=== PATIENT | female | born 1990 | race Caucasian/White ===

== ENCOUNTER 2019-04-21 05:19 | Emergency (ER) | payer OTHER ==
[2019-04-21] MEDS ORDERED: SODIUM CHLORIDE 0.9% 1,000 ML IV ONE ×2 (05:47→07:13)
[2019-04-21] MEDS ORDERED: MORPHINE SULFATE 4 MG/ML SYRINGE IV STA (05:47)
--- NOTE | 2019-04-21 05:51 | ED ---
Abdominal Pain HPI - General Source: patient, family Mode of arrival: wheelchair Limitations: no limitations - History of Present Illness Complaint: abdominal pain Onset/Timin -: hour(s) Location: RLQ Radiation: R flank Migration to: no migration Severity: severe Quality: sharp Consistency: constant Improves With: nothing Worsens With: nothing Associated Symptoms: vomiting - Related Data LMP (females 10-50): Patient : Yes Number of weeks : 19 <Kwan Caldwell - Last Filed: 04/21/19 08:10> <Tobin Campbell - Last Filed: 04/21/19 10:20> - General Chief Complaint: Abdominal Pain Stated Complaint: Back/Abdominal Pain, 19wks pgt Time Seen by Provider: 04/21/19 05:40 - History of Present Illness Initial Comments: This patient is a 29-year-old woman, currently , 19 weeks 4 days by ultrasound, who presents with a recurrence of right lower quadrant pain that radiates around the flank. The patient had initially had the pain 2 days previously and had been seen at [facility] in [place], where she had ultrasound which did not reveal any etiology as well as lab studies that did not reveal an etiology, but the pain had resolved following IV morphine. Patient states that the pain recurred approximately 1-1/2 hours before she arrived here. She describes it as constant, severe, sharp aching. It does radiate to the flank. She has not noted worsening or relieving factors. She did have an episode of vomiting prior to coming in. No other associated symptoms. (Kwan Caldwell) - Related Data Home Medications Medication Instructions Recorded Confirmed Levothyroxine Sodium [Synthroid] 50 mcg PO DAILY 03/25/19 03/25/19 78/Iron/Folate 1/Dha 1 each PO DAILY 03/25/19 03/25/19 [Prenate Dha Softgel] metFORMIN HCL [Glucophage] 500 mg PO BID 03/25/19 03/25/19 Previous Rx's Medication Instructions Recorded Hydrocodone/Acetaminophen [[place] 1 each PO Q6HR PRN #20 tab 04/21/19 5-325] Nitrofurantoin Monohyd/M-Cryst 100 mg PO Q12HR #14 cap 04/21/19 [Macrobid] Ondansetron Odt [Zofran ODT] 4 mg PO Q8HR PRN #10 tab 04/21/19 Allergies Allergy/AdvReac Type Severity Reaction Status Date / Time No Known Allergies Allergy Verified 04/21/19 05:27 Review of Systems ROS Other: All systems not noted in ROS Statement are negative. Constitutional: Denies: fever, chills Respiratory: Denies: cough, dyspnea Cardiovascular: Denies: chest pain, palpitations, edema, syncope Gastrointestinal: Reports: abdominal pain, vomiting. Denies: diarrhea, constipation, melena, hematochezia Genitourinary: Denies: dysuria, hematuria Musculoskeletal: Denies: back pain Skin: Denies: rash Neurological: Denies: headache, weakness, numbness <PauletteKwan - Last Filed: 04/21/19 08:10> ROS Other: All systems not noted in ROS Statement are negative. <Tobin Campbell - Last Filed: 04/21/19 10:20> ROS Statement: Those systems with pertinent positive or pertinent negative responses have been documented in the HPI. Past Medical History Past Medical History: Thyroid Disorder Additional Past Medical History / Comment(s): PCOS History of Any Multi-Drug Resistant Organisms: None Reported Past Surgical History: Orthopedic Surgery Additional Past Surgical History / Comment(s): Two knee surgeries Past Anesthesia/Blood Transfusion Reactions: No Reported Reaction Past Psychological History: No Psychological Hx Reported Smoking Status: Never smoker Past Alcohol Use History: Occasional Past Drug Use History: None Reported <PauletteKwan - Last Filed: 04/21/19 08:10> General Exam Limitations: no limitations General appearance: alert, anxious Head exam: Present: atraumatic, normocephalic Eye exam: Present: normal appearance. Absent: scleral icterus, conjunctival injection ENT exam: Present: normal oropharynx Neck exam: Present: normal inspection Respiratory exam: Present: normal lung sounds bilaterally. Absent: respiratory distress, wheezes, rales, rhonchi, stridor Cardiovascular Exam: Present: regular rate, normal rhythm, normal heart sounds. Absent: systolic murmur, diastolic murmur, rubs, gallop GI/Abdominal exam: Present: soft, tenderness (Stevie lower quadrant), normal bowel sounds, mass (Gravid uterus palpable below the umbilicus). Absent: distended, guarding, rebound, rigid, pulsatile mass, hernia Extremities exam: Present: normal inspection, normal capillary refill. Absent: pedal edema, calf tenderness Back exam: Present: normal inspection. Absent: CVA tenderness (R), CVA tenderness (L) Neurological exam: Present: alert Skin exam: Present: warm, dry, intact, normal color. Absent: rash <Kwan Caldwell - Last Filed: 04/21/19 08:10> Course <Tobin Campbell - Last Filed: 04/21/19 10:20> Vital Signs 04/21/19 04/21/19 05:23 08:31 Temperature 98.2 F Pulse Rate 84 73 Respiratory 34 H 19 Rate Blood Pressure 130/77 115/72 O2 Sat by Pulse 100 98 Oximetry - Reevaluation(s) Reevaluation #1: 04/21/19 10:18 The patient was endorsed me by Dr. Caldwell at our shift change pending IV fluids and discussed with the patient's OB. Patient is feeling much improved she does demonstrate evidence of a kidney stone 6 mm at the right UVJ. Dr. Caldwell had discussed the case with Dr. Larios. Patient is feeling better I did discuss the findings with patient family members patient be discharged on Zofran as well as [place] 5 as well as Macrobid. Patient will follow up with Dr. Pérez next week (Tobin Campbell) Medical Decision Making - Lab Data Result diagrams: 04/21/19 06:05 04/21/19 06:05 <Kwan Caldwell - Last Filed: 04/21/19 08:10> - Lab Data Result diagrams: 04/21/19 06:05 04/21/19 06:05 <Tobin Campbell - Last Filed: 04/21/19 10:20> - Medical Decision Making Patient is a 29-year-old woman at nearly 20 weeks of gestation, found to have probable right ureteral lithiasis near the UVJ. She has had marked improvement in symptoms following analgesia. Case discussed with urology and they believe t hat no intervention will be necessary given the distal location of the stone. I have paged Dr. Pérez to discuss case as well and call back pending at time of shift change. (Kwan Caldwell) - Lab Data Lab Results 04/21/19 04/21/19 04/21/19 Range/Units 06:05 06:05 06:05 WBC 11.0 H (3.8-10.6) k/uL RBC 4.48 (3.80-5.40) m/uL Hgb 12.8 (11.4-16.0) gm/dL Hct 38.4 (34.0-46.0) % MCV 85.8 (80.0-100.0) fL MCH 28.5 (25.0-35.0) pg MCHC 33.2 (31.0-37.0) g/dL RDW 13.2 (11.5-15.5) % Plt Count 310 (150-450) k/uL Neutrophils % 79 % Lymphocytes % 13 % Monocytes % 5 % Eosinophils % 1 % Basophils % 0 % Neutrophils # 8.7 H (1.3-7.7) k/uL Lymphocytes # 1.5 (1.0-4.8) k/uL Monocytes # 0.6 (0-1.0) k/uL Eosinophils # 0.1 (0-0.7) k/uL Basophils # 0.0 (0-0.2) k/uL Sodium 136 L (137-145) mmol/L Potassium 4.3 (3.5-5.1) mmol/L Chloride 110 H (98-107) mmol/L Carbon Dioxide 16 L (22-30) mmol/L Anion Gap 10 mmol/L BUN 4 L (7-17) mg/dL Creatinine 0.47 L (0.52-1.04) mg/dL Est GFR (CKD-EPI)AfAm >90 (>60 ml/min/1.73 sqM) Est GFR (CKD-EPI)NonAf >90 (>60 ml/min/1.73 sqM) Glucose 106 H (74-99) mg/dL Lactic Ac Sepsis Rflx Plasma Lactic Acid Vidal 3.2 H* (0.7-2.0) mmol/L Calcium 9.1 (8.4-10.2) mg/dL Total Bilirubin 0.9 (0.2-1.3) mg/dL AST 49 H (14-36) U/L ALT 53 H (4-34) U/L Alkaline Phosphatase 43 (38-126) U/L Total Protein 6.1 L (6.3-8.2) g/dL Albumin 3.3 L (3.5-5.0) g/dL Amylase 51 (30-110) U/L Lipase 36 (23-300) U/L Urine Color Urine Appearance (Clear) Urine pH (5.0-8.0) Ur Specific [place] (1.001-1.035) Urine Protein (Negative) Urine Glucose (UA) (Negative) Urine Ketones (Negative) Urine Blood (Negative) Urine Nitrite (Negative) Urine Bilirubin (Negative) Urine Urobilinogen (<2.0) mg/dL Ur Leukocyte Esterase (Negative) Urine RBC (0-5) /hpf Urine WBC (0-5) /hpf Ur Squamous Epith Cells (0-4) /hpf Urine Bacteria (None) /hpf Urine Mucus (None) /hpf 04/21/19 04/21/19 Range/Units 06:38 07:10 WBC (3.8-10.6) k/uL RBC (3.80-5.40) m/uL Hgb (11.4-16.0) gm/dL Hct (34.0-46.0) % MCV (80.0-100.0) fL MCH (25.0-35.0) pg MCHC (31.0-37.0) g/dL RDW (11.5-15.5) % Plt Count (150-450) k/uL Neutrophils % % Lymphocytes % % Monocytes % % Eosinophils % % Basophils % % Neutrophils # (1.3-7.7) k/uL Lymphocytes # (1.0-4.8) k/uL Monocytes # (0-1.0) k/uL Eosinophils # (0-0.7) k/uL Basophils # (0-0.2) k/uL Sodium (137-145) mmol/L Potassium (3.5-5.1) mmol/L Chloride (98-107) mmol/L Carbon Dioxide (22-30) mmol/L Anion Gap mmol/L BUN (7-17) mg/dL Creatinine (0.52-1.04) mg/dL Est GFR (CKD-EPI)AfAm (>60 ml/min/1.73 sqM) Est GFR (CKD-EPI)NonAf (>60 ml/min/1.73 sqM) Glucose (74-99) mg/dL Lactic Ac Sepsis Rflx Y Plasma Lactic Acid Vidal (0.7-2.0) mmol/L Calcium (8.4-10.2) mg/dL Total Bilirubin (0.2-1.3) mg/dL AST (14-36) U/L ALT (4-34) U/L Alkaline Phosphatase (38-126) U/L Total Protein (6.3-8.2) g/dL Albumin (3.5-5.0) g/dL Amylase (30-110) U/L Lipase (23-300) U/L Urine Color Yellow Urine Appearance Slightly Cloudy H (Clear) Urine pH 6.0 (5.0-8.0) Ur Specific [place] 1.020 (1.001-1.035) Urine Protein 2+ H (Negative) Urine Glucose (UA) Negative (Negative) Urine Ketones 3+ H (Negative) Urine Blood Small (Negative) Urine Nitrite Negative (Negative) Urine Bilirubin Negative (Negative) Urine Urobilinogen <2.0 (<2.0) mg/dL Ur Leukocyte Esterase Negative (Negative) Urine RBC 19 H (0-5) /hpf Urine WBC 3 (0-5) /hpf Ur Squamous Epith Cells 2 (0-4) /hpf Urine Bacteria Occasional H (None) /hpf Urine Mucus Rare H (None) /hpf Disposition Is patient prescribed a controlled substance at d/c from ED?: Yes When asked, does pt state using other controlled substances?: No If prescribed controlled substance>3 days was MAPS reviewed?: Prescribed <3 Days If opioid is for acute pain is fill amount 7 days or less?: Yes If Rx opioid, was Start Talking consent form obtained?: Yes <Kwan Caldwell - Last Filed: 04/21/19 08:10> Is patient prescribed a controlled substance at d/c from ED?: Yes <Tobin Campbell - Last Filed: 04/21/19 10:20> Clinical Impression: Ureterolithiasis during in second trimester Disposition: HOME SELF-CARE Condition: Good Prescriptions: Nitrofurantoin Monohyd/M-Cryst [Macrobid] 100 mg PO Q12HR #14 cap Hydrocodone/Acetaminophen [[place] 5-325] 1 each PO Q6HR PRN #20 tab PRN Reason: Pain Ondansetron Odt [Zofran ODT] 4 mg PO Q8HR PRN #10 tab PRN Reason: Nausea Referrals: None,Stated [Primary Care Provider] - 1-2 days
[2019-04-21] MEDS ORDERED: HYDROmorphone 1 MG/ML 1 ML SYRINGE IVP STA (06:08)
[2019-04-21 06:17] LABS: Basophils % (A) 0 %; Eosinophils # (A) 0.1 k/uL (0-0.7); Eosinophils % (A) 1 %; HCT 38.4 % (34.0-46.0); HGB 12.8 gm/dL (11.4-16.0); Lymphocytes # (A) 1.5 k/uL (1.0-4.8); Lymphocytes % (A) 13 %; MCH 28.5 pg (25.0-35.0); MCHC 33.2 g/dL (31.0-37.0); MCV 85.8 fL (80.0-100.0); Monocytes # (A) 0.6 k/uL (0-1.0); Monocytes % (A) 5 %; Neutrophils # (A) 8.7 k/uL (1.3-7.7); Neutrophils % (A) 79 %; Platelet Count 310 k/uL (150-450); RBC 4.48 m/uL (3.80-5.40); RDW 13.2 % (11.5-15.5)
[2019-04-21 06:28] LABS: ALT 53 U/L (4-34); AST 49 U/L (14-36); African American GFR (CKD) >90 (>60 ml/min/1.73 sqM); Albumin 3.3 g/dL (3.5-5.0); Alkaline Phosphatase 43 U/L (38-126); Amylase 51 U/L (30-110); Anion Gap 10 mmol/L; Blood Urea Nitrogen 4 mg/dL (7-17); Calcium 9.1 mg/dL (8.4-10.2); Carbon Dioxide 16 mmol/L (22-30); Chloride 110 mmol/L (98-107); Glucose 106 mg/dL (74-99); Non-African American GFR(CKD) >90 (>60 ml/min/1.73 sqM); Sodium 136 mmol/L (137-145); Total Bilirubin 0.9 mg/dL (0.2-1.3); Total Protein 6.1 g/dL (6.3-8.2)
[2019-04-21 06:32] LABS: Potassium 4.3 mmol/L (3.5-5.1)
[2019-04-21 06:53] LABS: Appearance,Urine Slightly Cloudy (Clear); Bilirubin,Urine Negative (Negative); Blood,Urine Small (Negative); Color,Urine Yellow; Glucose,Urine (UA) Negative (Negative); Ketones,Urine 3+ (Negative); Nitrite,Urine Negative (Negative); Protein,Urine 2+ (Negative); Urobilinogen,Urine <2.0 mg/dL (<2.0)
[2019-04-21 06:54] LABS: Leukocyte Esterase,Urine Negative (Negative)
[2019-04-21 06:58] LABS: Bacteria,Urine Occasional /hpf; Mucus,Urine Rare /hpf; RBC,Urine 19 /hpf (0-5); Squamous Epithelial Cell,Urine 2 /hpf (0-4); WBC,Urine 3 /hpf (0-5)
--- NOTE | 2019-04-21 07:59 | US ---
EXAMINATION TYPE: US renals and bladder DATE OF EXAM: 04/21/2019 COMPARISON: None CLINICAL HISTORY: 29-year-old female RLQ abdominal pain. Patient is 19 weeks . TECHNIQUE: Multiple sonographic images of the kidneys and bladder are obtained. FINDINGS: EXAM MEASUREMENTS: Right Kidney: 10.1 x 6.0 x 6.4 cm with mild hydronephrosis. Left Kidney: 11.4 x 5.5 x 6.4 cm without hydronephrosis. Right Kidney: Mild hydronephrosis Left Kidney: No hydronephrosis or masses seen Bladder: mildly distended. Echogenic focus seen near right UVJ with twinkling artifact = 0.6 x 0.5 c m. Bilateral Jets seen Line Maintainer Section notes: Images of RLQ taken. Appendix not visualized. No free fluid seen. IMPRESSION: 1. Mild right-sided hydronephrosis. There is a possible 6 mm distal right ureteral calculus. Clinical ly correlate. 2. Additional scanning along the right lower quadrant. Appendix could not be visualized and is theref ore not assessed. No free fluid seen.
[2019-04-21] MEDS ORDERED: DEXTROSE 5%-0.45% NACL 1,000 ML IV ONE (08:09)
[2019-04-21 08:34] VITALS: RESP 19
[2019-04-21 10:37] VITALS: BP 115/62; PULSE 83; TEMP 98.3
== END 2019-04-21 10:44 | disposition home or self-care (01) ==
LOC: EC 05:19
DX: O99.89 Other specified diseases and conditions complicating pregnancy, childbirth and the puerperium (principal); N20.1 Calculus of ureter; O99.282 Endocrine, nutritional and metabolic diseases complicating pregnancy, second trimester; E28.2 Polycystic ovarian syndrome; E07.9 Disorder of thyroid, unspecified; Z3A.19 19 weeks gestation of pregnancy; Z98.890 Other specified postprocedural states; Z79.84 Long term (current) use of oral hypoglycemic drugs; Z79.890 Hormone replacement therapy
CPT/HCPCS: 36415; 80053; 82150; 83605; 83690; 85025; 81001; 76770; 99284; 96374; 96375; 96361 ×4; J2270; J1170

== ENCOUNTER → 2019-05-04 | Outpatient (CLI) | payer OTHER | END | disposition home or self-care (01) | LOC: LABWHC1 10:12 | PROVIDERS: ATTEND Internal Medicine Endocrinology, Diabetes & Metabolism | DX: E03.8 Other specified hypothyroidism (principal) | CPT/HCPCS: 36415; 84443 ==

== ENCOUNTER 2019-08-31 06:00 | Inpatient (IN) | payer OTHER ==
[2019-08-31] MEDS ORDERED: METHYLERGONOVINE 0.2 MG/ML 1 ML AMP IM PRN (06:25)
[2019-08-31] MEDS ORDERED: CARBOPROST TROMETHAMINE 250 MCG/ML 1 ML AMP IM PRN (06:25)
[2019-08-31] MEDS ORDERED: OXYTOCIN 10 UNIT/ML 1 ML VIAL IM PRN (06:25)
[2019-08-31] MEDS ORDERED: LIDOCAINE 0.5% (PF) 5 MG/ML (50 ML SDV) SQ PRN (06:25)
[2019-08-31] MEDS ORDERED: TERBUTALINE 1 MG/ML VIAL SQ PRN (06:25)
[2019-08-31] MEDS ORDERED: OXYTOCIN 30 UNITS/500 ML NS 30 UNIT in SALINE 1 500ML.BAG IV SCH (06:30)
[2019-08-31] MEDS: LACTATED RINGERS 1,000 ML IV SCH ×2 (06:42→09:08)
[2019-08-31 07:11] LABS: Glucose,Whole Blood 84 mg/dL (75-99)
[2019-08-31 07:25] LABS: Basophils % (A) 1 %; Eosinophils # (A) 0.3 k/uL (0-0.7); Eosinophils % (A) 3 %; HCT 37.3 % (34.0-46.0); HGB 11.7 gm/dL (11.4-16.0); Lymphocytes # (A) 1.4 k/uL (1.0-4.8); Lymphocytes % (A) 16 %; MCH 24.4 pg (25.0-35.0); MCHC 31.3 g/dL (31.0-37.0); Mean Platelet Volume 8.2; Monocytes # (A) 0.5 k/uL (0-1.0); Monocytes % (A) 6 %; Neutrophils # (A) 6.3 k/uL (1.3-7.7); Neutrophils % (A) 73 %; Platelet Count 332 k/uL (150-450); RBC 4.78 m/uL (3.80-5.40); RDW 14.2 % (11.5-15.5); WBC 8.7 k/uL (3.8-10.6)
--- NOTE | 2019-08-31 07:47 | P.HPOB ---
History of Present Illness H&P Date: 08/31/19 Chief Complaint: Here for induction of labor This is a 29-year-old white female 1 para 0 EDC 09/11/2019 at 38-3/7 weeks' gestation. Patient is on insulin control for gestational diabetes. It is the recommendation of maternal medicine to deliver between 3839 weeks. Cervix is reasonably favorable. Patient denies any issues or complaints. Fetus is been active throughout the , reactive NST in the office yesterday. Blood sugar on admission 84. history significant for blood type O positive, rubella status immune. Hepatitis B surface antigen, HIV testing, urine culture, group B strep cultures, gonorrhea and chlamydia cultures all negative. One-hour Glucola 198. Recent ultrasound consistent with 87th percentile growth. Social history patient is , she denies alcohol tobacco or drug use. Family history is essentially noncontributory. ALLERGIES none known. Current medications levothyroxine 50 MCG's daily, metformin 500 mg 2 tabs once daily, vitamin daily. Past medical history significant for hypothyroidism, polycystic ovarian syndrome. Past surgical history colposcopy in 2012, knee surgery 2003, wisdom teeth extracted, adenoidectomy. On exam this is a pleasant white female who is 5 foot 7 inches, 196 pounds, blood pressure 129/70. The general physical exam is within normal limits. The chest is clear in all pacheco. Extremities reveal no edema. The cervix is 3 cm dilated, 80% effaced, -1 station, vertex presentation, soft, mid position. Artificial amniorrhexis reveals meconium-stained fluid. heart rate is consistent with reactive NST. Uterine contractions are occurring spontaneously approximately every 4-6 minutes apart. Impression: 38-3/7 weeks intrauterine , gestational diabetic on insulin. Hypothyroidism. Meconium-stained fluid. All signs otherwise reassuring. Plan: Oxytocin augmentation per hospital protocol. Close maternal and surveillance. Anticipate normal spontaneous vaginal delivery. Review of Systems As per HPI please Past Medical History Past Medical History: Thyroid Disorder Additional Past Medical History / Comment(s): PCOS History of Any Multi-Drug Resistant Organisms: None Reported Past Surgical History: Adenoidectomy, Orthopedic Surgery Additional Past Surgical History / Comment(s): Two knee surgeries Past Anesthesia/Blood Transfusion Reactions: No Reported Reaction Past Psychological History: No Psychological Hx Reported Smoking Status: Never smoker Past Alcohol Use History: Occasional Past Drug Use History: None Reported - Past Family History Father History Unknown: Yes Family Medical History: AFIB Medications and Allergies Home Medications Medication Instructions Recorded Confirmed Type Levothyroxine Sodium [Synthroid] 50 mcg PO DAILY 03/25/19 08/31/19 History 78/Iron/Folate 1/Dha 1 each PO DAILY 03/25/19 08/31/19 History [Prenate Dha Softgel] metFORMIN HCL [Glucophage] 500 mg PO BID 03/25/19 08/31/19 History Ondansetron Odt [Zofran ODT] 4 mg PO Q8HR PRN #10 tab 04/21/19 08/31/19 Rx Allergies Allergy/AdvReac Type Severity Reaction Status Date / Time No Known Allergies Allergy Verified 04/21/19 05:27 Exam Vital Signs Temp Pulse Resp BP 08/31/19 06:24 97.4 F L 82 18 129/70 Intake and Output 08/30/19 08/31/19 08/31/19 22:59 06:59 14:59 Other: Weight 88.904 kg See dictation under HPI please Results Result Diagrams: 08/31/19 06:43 Abnormal Lab Results - Last 24 Hours (Table) 08/31/19 Range/Units 06:43 MCV 78.0 L (80.0-100.0) fL MCH 24.4 L (25.0-35.0) pg Assessment and Plan Assessment: 38-3/7 weeks intrauterine , gestational diabetes on insulin, hypothyroidism, meconium-stained fluid, here for induction of labor. Plan: Oxytocin per hospital protocol. Close maternal and surveillance. Analgesic options reviewed with the patient. Anticipate normal spontaneous vaginal delivery. Time with Patient: Less than 30
[2019-08-31] MEDS ORDERED: BUTORPHANOL 1 MG/ML 1 ML VIAL IV PRN (08:07)
[2019-08-31] MEDS ORDERED: fentaNYL (PF) 50 MCG/ML 5 ML AMP ONE (09:30)
[2019-08-31] MEDS ORDERED: ROPIVACAINE 5MG/ML 20ML VIAL ONE (09:30)
[2019-08-31] MEDS ORDERED: SODIUM CHLORIDE 0.9% 100 ML BAG ONE (09:30)
[2019-08-31] MEDS ORDERED: BENZOCAINE/MENTHOL SPRAY 1 GM/SPRAY AEROSOL TOPICAL PRN (15:17)
[2019-08-31] MEDS ORDERED: ZOLPIDEM 5 MG TAB PO PRN (15:17)
[2019-08-31] MEDS ORDERED: ACETAMINOPHEN TAB 325 MG TAB PO PRN (15:17)
[2019-08-31] MEDS ORDERED: diphenhydrAMINE 50 MG/ML 1 ML VIAL IVP PRN ×2 (15:17)
[2019-08-31] MEDS ORDERED: LANOLIN CREAM 5 GM TUBE TOPICAL PRN (15:17)
[2019-08-31] MEDS ORDERED: HYDROCORTISONE 2.5% RECTAL CREAM 30 GM TUBE RECTAL PRN (15:17)
[2019-08-31] MEDS ORDERED: diphenhydrAMINE 25 MG CAP PO PRN (15:17)
[2019-08-31] MEDS ORDERED: SIMETHICONE 80 MG CHEWABLE PO PRN (15:17)
[2019-08-31] MEDS ORDERED: diphenhydrAMINE 50 MG CAP PO PRN (15:17)
--- NOTE | 2019-08-31 15:17 | P.PROBDLV ---
Vaginal Delivery Note - . Vaginal Delivery Note: This is a 29-year-old white female 1 para 0 EDC 09/11/2019 at 38-3/7 weeks' gestation. Patient presented for induction with gestational diabetes, on insulin. Blood sugar on admission 84. Fetus is been active throughout the . Please see dictated history and physical for details. [place]pee strep cultures negative, blood type O+, rubella status immune. Artificial amniorrhexis revealed light meconium-stained fluid. Internal scalp lead was applied. Oxytocin was started and titrated per hospital protocol. Epidural was requested and placed. Unremarkable placement. Patient progressed through the first stage of labor and became completely dilated at 1349 hrs. There were episodes of decelerations noted, at all times good fhyx-wa-snbb variability was noted. Patient made slow but steady progress in the second stage of labor. Ultimately the perineal body was prepped and draped in usual sterile fashion. 's head delivered occiput anterior and she restituted accordingly. There was a large amount of It noted. The right or anterior shou lder was delivered easily from underneath the pubic symphysis at which time the oropharynx, nasopharynx, and external nares were all bulb suctioned on the perineal body. Patient was officially delivered of a liveborn female infant at 1456 hrs. Umbilical cord was doubly clamped and ligated, she was handed to waiting congressional representative in the room. scores of 46 and 8 at one and 5 and 10 minutes respectively were given. The placenta delivered spontaneously, it was inspected and noted to be intact with trivascular cord at 1458 hrs. Placenta was sent to pathology for evaluation. Inspection now carefully of the cervix, vagina, perineum, periurethral, and perirectal areas revealed a first-degree perineal laceration. This was easily repaired with 3-0 repeat suture in the usual fashion. Fundus is firm and in the midline, symmetric and 18 week size upon completion of delivery. All sponge needle and enhancement counts are correct. 's weight is not available time of this dictation.
[2019-08-31] MEDS ORDERED: OXYTOCIN 20 UNITS/1000 ML NS 1,000 ML IV SCH (15:30)
[2019-08-31] MEDS: IBUPROFEN 600 MG TAB PO PRN ×2 (15:32→21:03)
[2019-08-31 15:40] LABS: Glucose,Whole Blood 97 mg/dL (75-99)
[2019-08-31] MEDS: SENNOSIDES-DOCUSATE SODIUM 1 EACH TAB PO SCH (21:03)
[2019-09-01] MEDS: IBUPROFEN 600 MG TAB PO PRN ×3 (03:48→18:14)
[2019-09-01 06:53] LABS: HCT 34.5 % (34.0-46.0); HGB 11.3 gm/dL (11.4-16.0); RBC 4.41 m/uL (3.80-5.40); WBC 13.4 k/uL (3.8-10.6)
[2019-09-01 06:54] LABS: Basophils % (A) 0 %; Eosinophils # (A) 0.3 k/uL (0-0.7); Eosinophils % (A) 2 %; Hypochromasia Slight; Lymphocytes # (A) 1.9 k/uL (1.0-4.8); Lymphocytes % (A) 14 %; MCH 25.7 pg (25.0-35.0); MCHC 32.9 g/dL (31.0-37.0); MCV 78.2 fL (80.0-100.0); Monocytes # (A) 0.7 k/uL (0-1.0); Monocytes % (A) 5 %; Neutrophils # (A) 10.4 k/uL (1.3-7.7); Neutrophils % (A) 77 %; Platelet Count 300 k/uL (150-450); RDW 14.2 % (11.5-15.5)
[2019-09-01 07:33] VITALS: RESP 16
--- NOTE | 2019-09-01 08:18 | P.PN ---
Subjective Progress Note Date: 09/01/19 Principal diagnosis: day #1 Slept well. Minimal lochia rubra. No complaints. Objective - Vital Signs Vital signs: Vital Signs Temp 98.1 F 09/01/19 07:30 Pulse 80 09/01/19 07:30 Resp 16 09/01/19 07:30 BP 120/67 09/01/19 07:30 Pulse Ox 97 09/01/19 07:30 Intake & Output 08/31/19 09/01/19 09/01/19 18:59 06:59 18:59 Other: Voiding Method Toilet # Voids 1 1 2 - Constitutional General appearance: Present: average body habitus, cooperative - EENT Eyes: Present: PERRLA ENT: Present: hearing grossly normal - Neck Neck: Present: normal ROM - Respiratory Respiratory: bilateral: CTA - Cardiovascular Rhythm: regular - Gastrointestinal General gastrointestinal: Present: normal bowel sounds - Genitourinary Genitourinary Comment(s): Fundus firm, midline, symmetric, 18 week size. - Neurologic Neurologic: Present: CNII-XII intact - Musculoskeletal Musculoskeletal: Present: gait normal, strength equal bilaterally - Psychiatric Psychiatric: Present: A&O x's 3, appropriate affect, intact judgment & insight - Labs CBC & Chem 7: 09/01/19 06:36 Labs: Abnormal Lab Results - Last 24 Hours (Table) 09/01/19 Range/Units 06:36 WBC 13.4 H (3.8-10.6) k/uL Hgb 11.3 L (11.4-16.0) gm/dL MCV 78.2 L (80.0-100.0) fL Neutrophils # 10.4 H (1.3-7.7) k/uL Assessment and Plan Assessment: Doing well day #1 Plan: [place] progressing well and nursery. Continue care today. Likely discharge home tomorrow. Time with Patient: Less than 30
[2019-09-01] MEDS: SENNOSIDES-DOCUSATE SODIUM 1 EACH TAB PO SCH ×2 (09:57→21:12)
[2019-09-02] MEDS: IBUPROFEN 600 MG TAB PO PRN ×2 (03:54→15:03)
[2019-09-02] MEDS: SENNOSIDES-DOCUSATE SODIUM 1 EACH TAB PO SCH (07:43)
--- NOTE | 2019-09-02 10:08 | P.DS ---
Providers Date of admission: 08/31/19 06:02 Expected date of discharge: 09/02/19 Attending physician: Trish Hastings Primary care physician: Stated None - Discharge Diagnosis(es) (1) Term Current Visit: Yes Status: Acute (2) Gestational diabetes Current Visit: Yes Status: Acute (3) Status post vaginal delivery Current Visit: Yes Status: Acute (4) Obstetric vaginal laceration Current Visit: Yes Status: Acute Hospital Course: This is a 29-year-old 1 now para 1 that presented to labor and delivery at 38-3/7 weeks for induction of labor secondary to gestational diabetes on insulin. Patient had been receiving routine care which has been uncomplicated despite being diagnosed with gestational diabetes. Patient has a history of polycystic ovarian syndrome and was on metformin in addition. Patient had seen Dr. Peres for management of her insulin needed to control her blood sugars. Patient was also seen by maternal- medicine with recommendation of delivery between 38-39 weeks. Patient's blood sugars have been reasonably well-controlled and insulin was increased as needed. Patient was admitted to labor and delivery and Pitocin induction of labor was begun per hospital protocol. Patient progressed through labor eventually requesting an epidural for analgesia. Patient progressed to complete began pushing and had a normal spontaneous vaginal delivery of a viable female at 1446, was then handed off to awaiting electrocardiogram technician, Apgars of 4/6/8 at one and 5 and 10 minutes respectively. Infant was then taken back to the nursery and placed on high flow oxygen. Subsequent weaning off of the oxygen was done by the special care nursery. Patient remains on IV antibiotics. Patient has done well since delivery. On this day #2 she is ambulating and voiding without difficulty. She is tolerating a regular diet without nausea or vomiting. She states her pain is well-controlled. She is b reast-feeding/pumping. Patient Condition at Discharge: Good Plan - Discharge Summary New Discharge Prescriptions: No Action Levothyroxine Sodium [Synthroid] 50 mcg PO DAILY metFORMIN HCL [Glucophage] 500 mg PO BID 78/Iron/Folate 1/Dha [Prenate Dha Softgel] 1 each PO DAILY Insulin Aspart [NovoLOG] 8 units SQ DIRECTED Discharge Medication List Levothyroxine Sodium [Synthroid] 50 mcg PO DAILY 03/25/19 [History] 78/Iron/Folate 1/Dha [Prenate Dha Softgel] 1 each PO DAILY 03/25/19 [History] metFORMIN HCL [Glucophage] 500 mg PO BID 03/25/19 [History] Insulin Aspart [NovoLOG] 8 units SQ DIRECTED 08/31/19 [History] Follow up Appointment(s)/Referral(s): Heather Pérez MD [STAFF PHYSICIAN] - 6 Weeks Patient Instructions/Handouts: Vaginal Delivery (DC), Vaginal Delivery (GEN) Activity/Diet/Wound Care/Special Instructions: Is Dr. Peres has been managing her insulin/blood sugars we'll defer management to Dr. Peres . Discharge Disposition: HOME SELF-CARE
[2019-09-02 16:10] VITALS: BP 97/52; PULSE 65; TEMP 98.6
== END 2019-09-02 21:00 | disposition home or self-care (01) | DRG 807 ==
LOC: 4FBP 06:02
PROVIDERS: ADMIT Obstetrics & Gynecology; ATTEND Obstetrics & Gynecology
PROC: 10E0XZZ Delivery of Products of Conception, External Approach (ICD-10-PCS; principal; 2019-08-31)
PROC: 10907ZC Drainage of Amniotic Fluid, Therapeutic from Products of Conception, Via Natural or Artificial Opening (ICD-10-PCS; 2019-08-31)
PROC: 0HQ9XZZ Repair Perineum Skin, External Approach (ICD-10-PCS; 2019-08-31)
PROC: 3E0R3BZ Introduction of Anesthetic Agent into Spinal Canal, Percutaneous Approach (ICD-10-PCS; 2019-08-31)
PROC: 3E033VJ Introduction of Other Hormone into Peripheral Vein, Percutaneous Approach (ICD-10-PCS; 2019-08-31)
DX: O24.424 Gestational diabetes mellitus in childbirth, insulin controlled (principal); Z37.0 Single live birth; E03.9 Hypothyroidism, unspecified; O99.284 Endocrine, nutritional and metabolic diseases complicating childbirth; E28.2 Polycystic ovarian syndrome; O70.0 First degree perineal laceration during delivery; O76 Abnormality in fetal heart rate and rhythm complicating labor and delivery; O77.0 Labor and delivery complicated by meconium in amniotic fluid; Z3A.38 38 weeks gestation of pregnancy; Z79.890 Hormone replacement therapy; Z79.899 Other long term (current) drug therapy; Z98.890 Other specified postprocedural states
CPT/HCPCS: 85025; 86850; 86900; 86901; 88307

== ENCOUNTER 2019-09-15 01:21 | Inpatient (IN) | payer OTHER ==
[2019-09-15] MEDS ORDERED: SODIUM CHLORIDE 0.9% 1,000 ML IV STA (01:29)
[2019-09-15] MEDS ORDERED: ASPIRIN 81 MG PO STA (01:29)
[2019-09-15] MEDS ORDERED: MORPHINE SULFATE 4 MG/ML SYRINGE IVP STA (01:33)
[2019-09-15 01:46] LABS: Basophils % (A) 0 %; Eosinophils # (A) 0.3 k/uL (0-0.7); Eosinophils % (A) 2 %; HCT 40.6 % (34.0-46.0); Hypochromasia Moderate; Lymphocytes # (A) 2.4 k/uL (1.0-4.8); Lymphocytes % (A) 18 %; MCH 25.5 pg (25.0-35.0); MCV 79.5 fL (80.0-100.0); Mean Platelet Volume 7.1; Monocytes # (A) 0.7 k/uL (0-1.0); Monocytes % (A) 5 %; Neutrophils # (A) 10.1 k/uL (1.3-7.7); Neutrophils % (A) 74 %; Platelet Count 471 k/uL (150-450); RDW 14.4 % (11.5-15.5); WBC 13.7 k/uL (3.8-10.6)
[2019-09-15] MEDS: LABETALOL 5 MG/ML VIAL MDV IVP SCH ×2 (01:56→05:20)
[2019-09-15 01:58] LABS: ALT 31 U/L (4-34); AST 38 U/L (14-36); African American GFR (CKD) >90 (>60 ml/min/1.73 sqM); Albumin 4.2 g/dL (3.5-5.0); Alkaline Phosphatase 183 U/L (38-126); Anion Gap 11 mmol/L; Blood Urea Nitrogen 13 mg/dL (7-17); Calcium 9.3 mg/dL (8.4-10.2); Carbon Dioxide 24 mmol/L (22-30); Chloride 107 mmol/L (98-107); Creatine Kinase 42 U/L (30-135); Glucose 115 mg/dL (74-99); Lipase 74 U/L (23-300); Magnesium 2.2 mg/dL (1.6-2.3); Non-African American GFR(CKD) >90 (>60 ml/min/1.73 sqM); Potassium 3.8 mmol/L (3.5-5.1); Sodium 142 mmol/L (137-145); Total Bilirubin 0.5 mg/dL (0.2-1.3); Uric Acid 5.1 mg/dL (3.7-7.4)
[2019-09-15 02:06] LABS: INR 0.9 (<1.2); Partial Thromboplastin Time 22.1 sec (22.0-30.0); Prothrombin Time 9.4 sec (9.0-12.0)
[2019-09-15 02:09] LABS: D-Dimer 1.88 mg/L FEU (<0.60)
--- NOTE | 2019-09-15 02:18 | CT ---
EXAMINATION TYPE: CT angio thor/abd pel aorta DATE OF EXAM: 09/15/2019 COMPARISON: CT abdomen 07/12/2013 HISTORY: Chest pain post CT DLP: 1648.6 mGycm Automated exposure control for dose reduction was used. CONTRAST: Performed with IV Contrast, patient injected with 100 mL of Isovue 370. Images were obtained from the thoracic inlet to the floor the pelvis without and subsequently with IV contrast. There are 3-D post processed images. FINDINGS: The lungs are clear of infiltrate. There is no evidence of a pulmonary mass. Heart appears normal. Th ere is no pericardial effusion. There are no hilar masses. There is no sign of mediastinal adenopathy . Facet aorta is intact. There is no thoracic aortic aneurysm or dissection. There is normal contrast opacification of the pulmonary arteries. There is no filling defect. Liver spleen stomach pancreas gallbladder appear normal. Bile ducts are not dilated. There is no adre nal mass. Kidneys show satisfactory contrast opacification. There is no hydronephrosis. Ureters are n ot dilated. Bladder distends smoothly. There is enlarged uterus from recent . There is no in guinal hernia. There is tiny amount of free fluid in the pelvis. There are a few sigmoid diverticula. There is no sign of diverticulitis. There is no mesenteric edema . There is no ascites or free air. There is no bowel obstruction. The cecum appears normal. Appendix is posterior and superior and appears normal. Abdominal aorta has normal size and contour. There is normal contrast opacification of the celiac art mandi and superior mesenteric artery. There is normal contrast opacification of the renal and iliac and femoral arteries. There is no evidence of hemodynamic stenosis. There is no evidence of aortic aneur ysm or dissection. There is no retroperitoneal adenopathy. IMPRESSION: Negative CT angiogram of the chest abdomen pelvis. No evidence of pulmonary embolism. Tiny amount of fluid in the pelvis of doubtful significance. Mild sigmoid diverticulosis.
--- NOTE | 2019-09-15 02:19 | XR ---
EXAMINATION TYPE: XR chest 1V DATE OF EXAM: 09/15/2019 COMPARISON: NONE HISTORY: Chest pain TECHNIQUE: Single view FINDINGS: Heart and mediastinum are normal. Lungs are clear. Diaphragm is normal. Bony thorax appears normal. IMPRESSION: Normal chest.
[2019-09-15 02:35] LABS: Appearance,Urine Clear (Clear); Bilirubin,Urine Negative (Negative); Blood,Urine Negative (Negative); Color,Urine Light Yellow; Glucose,Urine (UA) Negative (Negative); Ketones,Urine Negative (Negative); Leukocyte Esterase,Urine Negative (Negative); Nitrite,Urine Negative (Negative); Protein,Urine Trace (Negative); Specific Gravity,Urine 1.039 (1.001-1.035); Urobilinogen,Urine <2.0 mg/dL (<2.0)
--- NOTE | 2019-09-15 03:15 | ED ---
Chest Pain HPI - General Chief Complaint: Chest Pain Stated Complaint: Chest Pain Time Seen by Provider: 09/15/19 01:28 Source: patient Mode of arrival: wheelchair Limitations: no limitations - History of Present Illness Initial Comments: Mary Lou is a pleasant 29-year-old female who is 15 days after is complicated by gestational diabetes. Patient presents the emergency department today in acute distress with a complaint of retrosternal chest pain. Pain began suddenly while the patient was sitting watching television. Patient has no history of DVT, PE, cardiac disease. She denies any recent fevers chills nausea or vomiting. She is being treated for a sinus infection with oral antibiotic she believes is amoxicillin. She has been taking Motrin daily for pain but states she is only taking about 3 Motrin 200s daily. Severity scale (1-10): 3 - Related Data Home Medications Medication Instructions Recorded Confirmed Levothyroxine Sodium [Synthroid] 50 mcg PO DAILY 03/25/19 08/31/19 78/Iron/Folate 1/Dha 1 each PO DAILY 03/25/19 08/31/19 [Prenate Dha Softgel] metFORMIN HCL [Glucophage] 500 mg PO BID 03/25/19 08/31/19 Insulin Aspart [NovoLOG] 8 units SQ DIRECTED 08/31/19 08/31/19 Allergies Allergy/AdvReac Type Severity Reaction Status Date / Time No Known Allergies Allergy Verified 09/15/19 01:37 Review of Systems ROS Statement: Those systems with pertinent positive or pertinent negative responses have been documented in the HPI. ROS Other: All systems not noted in ROS Statement are negative. EKG Findings - EKG Comments: EKG Findings:: EKG was obtained due to chest pain, EKG was obtained at 1:31 AM, rate is 74 rhythm is sinus there is a normal axis, there are normal intervals, IA 1:30, QRS 72, QTc is 455 there are no acute ST elevations or depressions there is no evidence of acute ischemia or infarction. Movement artifact is noted secondary to the patient's severe pain. Past Medical History Past Medical History: Thyroid Disorder Additional Past Medical History / Comment(s): PCOS History of Any Multi-Drug Resistant Organisms: None Reported Past Surgical History: Adenoidectomy, Orthopedic Surgery Additional Past Surgical History / Comment(s): Two knee surgeries Past Anesthesia/Blood Transfusion Reactions: No Reported Reaction Past Psychological History: No Psychological Hx Reported Smoking Status: Never smoker Past Alcohol Use History: Occasional Past Drug Use History: None Reported - Past Family History Father History Unknown: Yes Family Medical History: AFIB General Exam - General Exam Comments Initial Comments: Physical Exam GENERAL: Diaphoretic, hunched over in pain, clutching her chest HENT: Normocephalic, Atraumatic. EYES: PERRL, EOMI PULMONARY: Tachypnea secondary to pain Unlabored respirations. No audible rales rhonchi or wheezing was noted. CARDIOVASCULAR: There is a regular rate and rhythm without any murmurs gallops or rubs. ABDOMEN: Soft and nontender with normal bowel sounds. No RUQ tenderness No pulsatile mass SKIN: Diaphoretic : Deferred NEUROLOGIC: Patient is alert and oriented x3. Moving all extremities spontaneously MUSCULOSKELETAL: Normal extremities with adequate strength and full range of motion. No lower extremity swelling or edema. No calf tenderness. PSYCHIATRIC: Normal psychiatric evaluation. Limitations: no limitations Course Vital Signs 09/15/19 09/15/19 09/15/19 01:32 01:34 01:55 Temperature 98 F Pulse Rate 84 71 Pulse Rate [ Right Pulse Oximetery] Respiratory 20 Rate Blood Pressure 153/97 178/93 Blood Pressure 154/91 [Left Arm] Blood Pressure [Right Arm] O2 Sat by Pulse 95 Oximetry 09/15/19 09/15/19 09/15/19 01:58 01:59 02:10 Temperature Pulse Rate 57 L Pulse Rate [ 56 L Right Pulse Oximetery] Respiratory 22 16 Rate Blood Pressure 139/82 Blood Pressure [Left Arm] Blood Pressure 165/83 141/88 [Right Arm] O2 Sat by Pulse 99 Oximetry 09/15/19 09/15/19 02:40 03:00 Temperature Pulse Rate 61 59 L Pulse Rate [ Right Pulse Oximetery] Respiratory 18 17 Rate Blood Pressure 144/84 141/84 Blood Pressure [Left Arm] Blood Pressure [Right Arm] O2 Sat by Pulse 98 98 Oximetry Chest Pain MDM - MDM Patient was seen and evaluated immediately upon arrival emergency department patient was noted to be in acute distress Patient's noted to be 15 days and profoundly hypertensive on arrival Labs including a cardiac workup and workup for preeclampsia were initiated Patient was treated with morphine for pain and transported immediately to CT for a CT angiography of the chest abdomen Patient returned to her room after CT, reported significant improvement in her pain after morphine however remains hypertensive, labetalol was ordered for blood pressure management CT angiography revealed no acute aortic pathology, no signs of dissection or aneurysm, no signs of pulmonary embolism Imaging reveals no cause for the patient's pain Labs resulted with mild leukocytosis, thrombocytosis, AST is minimally elevated, alk phos is minimally elevated d-dimer is predictably elevated likely related to being an . Urinalysis has trace proteinuria Patient's blood pressure is improving after administration of labetalol Patient care was discussed with Dr. Cosme, patient's presenting vital signs, imaging findings and labs were discussed. Considering that she is 15 days postp artum he does not think this is related to preeclampsia suspect she had a hypertensive emergency from other cause. Recommends admission to medicine. Critical Care Time Critical Care Time: Yes Total Critical Care Time: 30 Critical Care Time: Critical care time was exclusive of separately billable procedures and treating other patients and teaching time. Critical care was necessary to treat or prevent imminent or life-threatening deterioration. Given the critical condition in which the patient arrived, the patient was immediately assessed by myself and the nurse, and cardiac monitoring initiated due to the potential for rapid decompensation of the patient's clinical condition. During the course of the patients stay, I spent a considerable amount of time at the bedside performing serial re-evaluations of the patient's hemodynamic and clinical status because of the recognized potential threat to life or limb in this condition. I then had a chance to review not only all of the available current laboratory and radiographic studies obtained today, but I also reviewed old records available to me at the time. Additionally, any ancillary information available including rn endoscopy records were reviewed. Sequential vital signs were obtained. Disposition Clinical Impression: Chest pain, Hypertensive urgency Disposition: ADMITTED IP TO THIS [facility] Condition: Stable Is patient prescribed a controlled substance at d/c from ED?: No Referrals: Megan Dubois DO [Primary Care Provider] - 1-2 days
[2019-09-15] MEDS: MORPHINE SULFATE 4 MG/ML SYRINGE IV PRN ×2 (06:46→15:40)
--- NOTE | 2019-09-15 08:30 | US ---
EXAMINATION TYPE: US gallbladder DATE OF EXAM: 09/15/2019 COMPARISON: CT dated 09/15/2019, prior ultrasound 10/20/2019 CLINICAL HISTORY: pain. Rib and back pain EXAM MEASUREMENTS: Liver Length: 18.1 cm Gallbladder Wall: 0.3 cm CBD: 0.4 cm Right Kidney: 11.7 x 4.9 x 5.6 cm Pancreas: visualized portions wnl Liver: No evident mass Gallbladder: No stones seen Evidence for sonographic José's sign: No CBD: wnl Right Kidney: No hydronephrosis or masses seen There is no ascites. IMPRESSION: No abnormality evident to account for patient's symptoms.
[2019-09-15] MEDS ORDERED: METOPROLOL TARTRATE 25 MG TAB PO SCH (09:00)
--- NOTE | 2019-09-15 09:18 | P.CRDCN ---
History of Present Illness History of present illness: HISTORY OF PRESENTING ILLNESS This is a pleasant 29-year-old female past medical history significant for polycystic ovarian syndrome, gestational diabetes and is currently 15 days vaginal delivery. He denies prior history of coronary artery disease and has no significant family history of premature coronary artery disease. She did not have preeclampsia during . We have been asked to see in consultation for chest pain. She states last night while she was up with her daughter she was holding her on her lap while she was sitting down and she felt an intense sharp stabbing discomfort that started in the midsternal region and out across her chest radiating around to the right scapular region. This was associated with feeling increasingly short of breath. She states that her pain was exacerbated by deep inspiration. She also described having some breast engorgement however the pain was definitely described as a "rib" pain in her breast. The pain started around 1 AM and persisted until she arrived in the emergency department. She was given IV morphine which did relieve her discomfort however her pain returned at about 645 this morning very sharp in intensity requiring another dose of morphine. Her discomfort is somewhat reproducible ongoing with deep inspiration. Blood pressures on arrival 153/97, 178/93 and 154/91. The patient states at that time she was having 10 out of 10 pain. Repeat blood pressures after pain was under control 139/82 and 137/86. Telemetry tracings have been unremarkable. DIAGNOSTICS EKG reveals sinus mechanism. Chest xray negative for an acute cardiopulmonary process. CT of the chest negative for pulmonary embolism with normal-appearing aorta. Laboratory reviewed, WBC 13.7, hemoglobin 13, platelets 471, d-dimer 1.88, sodium 142, potassium 3.8, creatinine 0.7, magnesium 2.2, cardiac enzymes negative 3 and alkaline phosphatase 183. She takes no daily cardiac medications. Metoprolol was initiated in the emergency department. The patient is currently breast-feeding. REVIEW OF SYSTEMS At the time of my exam: CONSTITUTIONAL: Denies fever or chills. CARDIOVASCULAR: Complains of chest pain. Denies shortness of breath, orthopnea, PND or palpitations. RESPIRATORY: Denies cough. GASTROINTESTINAL: Denies abdominal pain, diarrhea, constipation, nausea or vomiting. MUSCULOSKELETAL: Denies myalgias. NEUROLOGIC: Denies numbness, tingling or weakness. ENDOCRINE: Denies fatigue, weight change, polydipsia or polyurina. GENITOURINARY: Denies burning, hematuria or urgency with micturation. HEMATOLOGIC: Denies history of anemia or bleeding. PHYSICAL EXAMINATION Blood pressure 137/86 heart rate 58 afebrile and maintaining oxygen saturation on room air. CONSTITUTIONAL: No apparent distress. HEENT: Head is normocephalic. Pupils are equal, round. Sclerae anicteric. Mucous membranes of the mouth are moist. No JVD. No carotid bruit. CHEST EXAMINATION: Lungs are clear to auscultation. No chest wall tenderness is noted on palpation or with deep breathing. HEART EXAMINATION: Regular rate and rhythm. S1, S2 heard. No murmurs, gallops or rub. ABDOMEN: Soft, nontender. Positive bowel sounds. EXTREMITIES: 2+ peripheral pulses, no lower extremity edema and no calf tenderness. NEUROLOGIC EXAMINATION: Patient is awake, alert and oriented x3. ASSESSMENT Chest pain, atypical for angina with pleuritic features. An acute coronary event has been ruled out. vaginal delivery Polycystic ovarian syndrome maintained on metformin History of gestational diabetes PLAN An acute coronary event has been ruled out. Pain is atypical to be related to underlying coronary artery disease. Likely related to referred to gas pain, which can be quite painful. Obtain ultrasound of the gallbladder. Echocardiogram has been ordered and will be reviewed. Discontinue Lopressor. Thank you kindly for this consultation. Nurse Practitioner note has been reviewed, I agree with a documented findings and plan of care. Patient was seen and examined. Past Medical History Past Medical History: Thyroid Disorder Additional Past Medical History / Comment(s): PCOS History of Any Multi-Drug Resistant Organisms: None Reported Past Surgical History: Adenoidectomy, Orthopedic Surgery Additional Past Surgical History / Comment(s): Two knee surgeries Past Anesthesia/Blood Transfusion Reactions: No Reported Reaction Past Psychological History: No Psychological Hx Reported Smoking Status: Never smoker Past Alcohol Use History: Occasional Past Drug Use History: None Reported - Past Family History Father History Unknown: Yes Family Medical History: AFIB Medications and Allergies Home Medications Medication Instructions Recorded Confirmed Type Azithromycin [Zithromax Z-pack] See Taper PO DAILY 09/15/19 09/15/19 History Ibuprofen [Motrin Ib] 600 mg PO Q6H PRN 09/15/19 09/15/19 History Levothyroxine Sodium [Levoxyl] 25 mcg PO DAILY 09/15/19 09/15/19 History SUMAtriptan SUCCINATE [Imitrex] 50 mg PO DAILY PRN 09/15/19 09/15/19 History Allergies Allergy/AdvReac Type Severity Reaction Status Date / Time No Known Allergies Allergy Verified 09/15/19 08:50 Physical Exam Vitals: Vital Signs Temp Pulse Pulse Resp BP BP BP 09/15/19 06:00 98.1 F 60 18 145/74 09/15/19 05:00 59 L 16 136/84 09/15/19 03:00 59 L 17 141/84 09/15/19 02:40 61 18 144/84 09/15/19 02:10 57 L 16 139/82 09/15/19 01:59 56 L 22 141/88 09/15/19 01:58 165/83 09/15/19 01:55 154/91 09/15/19 01:34 98 F 71 20 178/93 09/15/19 01:32 84 153/97 Pulse Ox 09/15/19 06:00 97 09/15/19 05:00 97 09/15/19 03:00 98 09/15/19 02:40 98 09/15/19 02:10 99 09/15/19 01:59 09/15/19 01:58 09/15/19 01:55 09/15/19 01:34 95 09/15/19 01:32 Intake and Output 09/14/19 09/15/19 09/15/19 22:59 06:59 14:59 Intake Total 120 Balance 120 Intake: Oral 120 Other: Voiding Method Toilet # Voids 1 Weight 77.111 kg Results 09/15/19 01:36 09/15/19 01:36 Cardiac Enzymes 09/15/19 09/15/19 09/15/19 Range/Units 01:36 01:36 05:11 AST 38 H (14-36) U/L Troponin I <0.012 <0.012 (0.000-0.034) ng/mL Coagulation 09/15/19 Range/Units 01:36 PT 9.4 (9.0-12.0) sec APTT 22.1 (22.0-30.0) sec CBC 09/15/19 Range/Units 01:36 WBC 13.7 H (3.8-10.6) k/uL RBC 5.10 (3.80-5.40) m/uL Hgb 13.0 (11.4-16.0) gm/dL Hct 40.6 (34.0-46.0) % Plt Count 471 H (150-450) k/uL Comprehensive Metabolic Panel 09/15/19 Range/Units 01:36 Sodium 142 (137-145) mmol/L Potassium 3.8 (3.5-5.1) mmol/L Chloride 107 (98-107) mmol/L Carbon Dioxide 24 (22-30) mmol/L BUN 13 (7-17) mg/dL Creatinine 0.70 (0.52-1.04) mg/dL Glucose 115 H (74-99) mg/dL Calcium 9.3 (8.4-10.2) mg/dL AST 38 H (14-36) U/L ALT 31 (4-34) U/L Alkaline Phosphatase 183 H (38-126) U/L Total Protein 7.0 (6.3-8.2) g/dL Albumin 4.2 (3.5-5.0) g/dL Current Medications Generic Name Dose Route Start Last Admin Trade Name Freq PRN Reason Stop Dose Admin Sodium Chloride 1,000 mls @ 100 mls/hr 09/15/19 01:29 09/15/19 01:40 Saline 0.9% IV 09/15/19 11:28 100 mls/hr .Q10H STA Administration Metoprolol Tartrate 25 mg 09/15/19 09:00 Lopressor PO BID ROHITH Morphine Sulfate 4 mg 09/15/19 03:04 09/15/19 06:46 Morphine Sulfate (Inj) IV 4 mg Q5M PRN Administration Chest Pain Intake and Output 09/14/19 09/15/19 09/15/19 22:59 06:59 14:59 Intake Total 120 Balance 120 Intake: Oral 120 Other: Voiding Method Toilet # Voids 1 Weight 77.111 kg 09/15/19 01:36 09/15/19 01:36
[2019-09-15] MEDS: IPRATROPIUM-ALBUTEROL 3 ML NEB INHALATION PRN (12:18)
--- NOTE | 2019-09-15 13:20 | P.HPIM ---
History of Present Illness Diagnoses: Chest pain , atypical, cardiology cleared patient, negative CTA, most likely gastrointestinal upset versus musculoskeletal, versus other elevated d-dimer with negative CTA of the chest recent diagnosis of pharyngitis was on oral antibiotics as an outpatient she's 15 day , she had normal vaginal delivery. Patient is still breast-feeding Hypothyroidism Polycystic ovarian syndrome History of migraine Hospital course This is a pleasant 29 years old female with past medical history of hypothyroidism, and migraine. She is a patient of Dr. Lewis. Presents because of chest pain/epigastric pain that woke her up at 1:00 in the morning pain was severe radiating to both sites and to the back. Flexure upon no change to dull achy pain it was 9/10 in severity but now is subsided, associated with epigastric and/or no sternal mild tenderness. She is also some chest tightness but no dyspnea, no nausea vomiting, no change in urine or bowel habits. She was recently diagnosed with pharyngitis by her PCP who prescribed her antibiotic Vital signs stable, on admission her blood pressure was 178/93, currently is 137/86. Her some Vitas looks stable and patient is afebrile. She has mild leukocytosis of 13.7 K. D-dimer is elevatedWith normal electrolytes and creatinine, AST is mildly elevated at 38, serial troponins are negative.chest x- ray: No acute process. EKG showed no significant ST-T changes. Ultrasound of the gallbladder is negative CT angiogram of the thoracic and abdominal and pelvic aorta: no aortic aneurysm or dissection, the lung mass and infiltrate, liver, spleen, stomach, pancreas an d gallbladder appeared normal, no hydronephrosis, few sigmoid diverticula, no bowel obstruction appendix appears normal, no evidence of pulmonary embolism per radiologist Finance Controller evaluated the patient and recommended echocardiogram, no need for metoprolol further recommendation which was stopped Currently patient symptoms improved she still have some vague dull epigastric pain, however patient is eating well, and she wants to go home and follow-up with her primary care doctor as instructed to within 1-2 days, also patient was instructed to follow up with her enterprise application developer/pediatric to review medication she can take Patient was counseled to hold breast-feeding for 2 days until she sees her doctor Problems and management plan were discussed with the patient and he verbalized understanding and acceptance Patient was found stable and can be discharged home however he needs follow-up a s an outpatient. Patient was instructed to follow up with PCP Dr. Lewis within one week and patient agrees. Also patient was instructed to follow up with tester rocket engine in 2 weeks and she agrees. Patient wants to make her own appointments Review of systems CONSTITUTIONAL: No fever, no malaise, no fatigue. HEENT: No recent visual problems or hearing problems. Denied any sore throat. CARDIOVASCULAR: No orthopnea, PND, no palpitations, no syncope. PULMONARY: No shortness of breath, no cough, no hemoptysis. GASTROINTESTINAL: No diarrhea, no nausea, no vomiting, no abdominal pain. Normoactive bowel sounds. NEUROLOGICAL: No headaches, no weakness, no numbness. HEMATOLOGICAL: Denies any bleeding or petechiae. GENITOURINARY: Denies any burning micturition, frequency, or urgency. MUSCULOSKELETAL/RHEUMATOLOGICAL: Denies any joint pain, swelling, or any muscle pain. ENDOCRINE: Denies any polyuria or polydipsia. Discharge exam Gen: patient is a AAOx3, no distress CVS: S1-S2, RRR, no murmur Lungs: B/L CTA, no wheezing Abdomen: soft, no distention, no tenderness, positive bowel sounds Extremity: no leg edema or induration Time spent more than 35 minutes Past Medical History Past Medical History: Thyroid Disorder Additional Past Medical History / Comment(s): PCOS History of Any Multi-Drug Resistant Organisms: None Reported Past Surgical History: Adenoidectomy, Orthopedic Surgery Additional Past Surgical History / Comment(s): Two knee surgeries Past Anesthesia/Blood Transfusion Reactions: No Reported Reaction Past Psychological History: No Psychological Hx Reported Smoking Status: Never smoker Past Alcohol Use History: Occasional Past Drug Use History: None Reported - Past Family History Father History Unknown: Yes Family Medical History: AFIB Medications and Allergies Home Medications Medication Instructions Recorded Confirmed Type Azithromycin [Zithromax Z-pack] See Taper PO DAILY 09/15/19 09/15/19 History Ibuprofen [Motrin Ib] 600 mg PO Q6H PRN 09/15/19 09/15/19 History Levothyroxine Sodium [Levoxyl] 25 mcg PO DAILY 09/15/19 09/15/19 History SUMAtriptan SUCCINATE [Imitrex] 50 mg PO DAILY PRN 07/16/20 07/16/20 History Allergies Allergy/AdvReac Type Severity Reaction Status Date / Time No Known Allergies Allergy Verified 09/15/19 08:50 Physical Exam Vitals: Vital Signs Temp Pulse Pulse Resp BP BP BP 09/15/19 08:00 97.9 F 58 L 16 137/86 09/15/19 06:00 98.1 F 60 18 145/74 09/15/19 05:00 59 L 16 136/84 09/15/19 03:00 59 L 17 141/84 09/15/19 02:40 61 18 144/84 09/15/19 02:10 57 L 16 139/82 09/15/19 01:59 56 L 22 141/88 09/15/19 01:58 165/83 09/15/19 01:55 154/91 09/15/19 01:34 98 F 71 20 178/93 09/15/19 01:32 84 153/97 Pulse Ox 09/15/19 08:00 98 09/15/19 06:00 97 09/15/19 05:00 97 09/15/19 03:00 98 09/15/19 02:40 98 09/15/19 02:10 99 09/15/19 01:59 09/15/19 01:58 09/15/19 01:55 09/15/19 01:34 95 09/15/19 01:32 Intake and Output 09/14/19 09/15/19 09/15/19 22:59 06:59 14:59 Intake Total 120 Balance 120 Intake: Oral 120 Other: Voiding Method Toilet Toilet # Voids 1 Weight 77.111 kg Results CBC & Chem 7: 09/15/19 01:36 09/15/19 01:36 Labs: Abnormal Lab Results - Last 24 Hours (Table) 09/15/19 09/15/19 09/15/19 Range/Units 01:36 01:36 01:36 WBC 13.7 H (3.8-10.6) k/uL MCV 79.5 L (80.0-100.0) fL Plt Count 471 H (150-450) k/uL Neutrophils # 10.1 H (1.3-7.7) k/uL D-Dimer 1.88 H (<0.60) mg/L FEU Glucose 115 H (74-99) mg/dL AST 38 H (14-36) U/L Alkaline Phosphatase 183 H (38-126) U/L Ur Specific [place] (1.001-1.035) Urine Protein (Negative) 09/15/19 Range/Units 02:29 WBC (3.8-10.6) k/uL MCV (80.0-100.0) fL Plt Count (150-450) k/uL Neutrophils # (1.3-7.7) k/uL D-Dimer (<0.60) mg/L FEU Glucose (74-99) mg/dL AST (14-36) U/L Alkaline Phosphatase (38-126) U/L Ur Specific [place] 1.039 H (1.001-1.035) Urine Protein Trace H (Negative) Thrombosis Risk Factor Assmnt - Choose All That Apply Each Factor Represents 1 point: Obesity (BMI >25), or Thrombosis Risk Factor Assessment Total Risk Factor Score: 2 Thrombosis Risk Factor Assessment Level: Low Risk
[2019-09-15] MEDS: SIMETHICONE 80 MG CHEWABLE PO PRN (15:02)
[2019-09-15] MEDS: PANTOPRAZOLE 40 MG TABLET PO SCH (17:14)
[2019-09-15] MEDS: DEXTROSE 5%-0.45% NACL 1,000 ML IV SCH (22:58)
[2019-09-16] MEDS: MORPHINE SULFATE 4 MG/ML SYRINGE IV PRN ×2 (01:07→10:25)
[2019-09-16] MEDS: SIMETHICONE 80 MG CHEWABLE PO PRN ×3 (01:21→17:28)
[2019-09-16] MEDS: PANTOPRAZOLE 40 MG TABLET PO SCH (06:03)
[2019-09-16 07:03] LABS: Basophils % (A) 0 %; Eosinophils # (A) 0.4 k/uL (0-0.7); Eosinophils % (A) 4 %; HCT 37.6 % (34.0-46.0); HGB 11.4 gm/dL (11.4-16.0); Hypochromasia Moderate; Lymphocytes # (A) 1.4 k/uL (1.0-4.8); Lymphocytes % (A) 15 %; MCH 24.1 pg (25.0-35.0); MCHC 30.2 g/dL (31.0-37.0); MCV 79.7 fL (80.0-100.0); Mean Platelet Volume 7.3; Monocytes # (A) 0.6 k/uL (0-1.0); Monocytes % (A) 6 %; Neutrophils # (A) 7.1 k/uL (1.3-7.7); Neutrophils % (A) 74 %; Platelet Count 398 k/uL (150-450); RBC 4.72 m/uL (3.80-5.40); RDW 14.8 % (11.5-15.5); WBC 9.6 k/uL (3.8-10.6)
[2019-09-16 07:08] LABS: African American GFR (CKD) >90 (>60 ml/min/1.73 sqM); Anion Gap 6 mmol/L; Blood Urea Nitrogen 8 mg/dL (7-17); Calcium 8.9 mg/dL (8.4-10.2); Carbon Dioxide 28 mmol/L (22-30); Chloride 106 mmol/L (98-107); Glucose 119 mg/dL (74-99); Non-African American GFR(CKD) >90 (>60 ml/min/1.73 sqM); Potassium 4.5 mmol/L (3.5-5.1); Sodium 140 mmol/L (137-145)
--- NOTE | 2019-09-16 09:47 | ECHOF ---
Referral Reason:post hypertensive urgency MEASUREMENTS -------- HEIGHT: 170.2 cm WEIGHT: 77.1 kg BP: 145/74 RVIDd: 3.9 cm (< 3.3) IVSd: 1.2 cm (0.6 - 1.1) LVIDd: 3.6 cm (3.9 - 5.3) LVPWd: 1.0 cm (0.6 - 1.1) IVSs: 2.0 cm LVIDs: 2.6 cm LVPWs: 1.5 cm LAESV Index (A-L): 39.37 ml/m Ao Diam: 3.0 cm (2.0 - 3.7) AV Cusp: 2.0 cm (1.5 - 2.6) MV EXCURSION: 19.315 mm (> 18.000) MV EF SLOPE: 136 mm/s (70 - 150) EPSS: 0.5 cm MV E Eliot: 1.21 m/s MV DecT: 123 ms MV A Eliot: 0.90 m/s MV E/A Ratio: 1.35 RAP: 20.00 mmHg RVSP: 58.20 mmHg FINDINGS -------- Sinus rhythm. This was a technically adequate study. The left ventricular size is normal. There is mild concentric left ventricular hypertrophy. Overa ll left ventricular systolic function is normal with, an EF between 55 - 60 %. The right ventricle is mild to moderately enlarged. LA is moderately dilated 34-39 ml/m2 The right atrial size is normal. Interatrial and interventricular septum intact. The aortic valve is trileaflet and appears structurally normal. Trace to mild aortic regurgitation. There is no evidence of aortic stenosis. The mitral valve is normal. Mild mitral regurgitation is present. Mild tricuspid regurgitation present. There is moderate pulmonary hypertension. The right ventric ular systolic pressure, as measured by Doppler, is 58.20mmHg. There is no pulmonic regurgitation present. The aortic root size is normal. The inferior vena cava is dilated with no significant inspiratory collapse which is consistent estima lata right atrial pressure of >20 mmHg. There is no pericardial effusion. CONCLUSIONS -------- 1. There is mild concentric left ventricular hypertrophy. 2. Overall left ventricular systolic function is normal with, an EF between 55 - 60 %. 3. The right ventricle is mild to moderately enlarged. 4. LA is moderately dilated 34-39 ml/m2 5. The aortic valve is trileaflet and appears structurally normal. 6. Trace to mild aortic regurgitation. 7. Mild mitral regurgitation is present. 8. Mild tricuspid regurgitation present. 9. There is moderate pulmonary hypertension. 10. The inferior vena cava is dilated with no significant inspiratory collapse which is consistent es timated right atrial pressure of >20 mmHg. 11. There is no pericardial effusion. BALLOON DESIGN PRINTER: Elizabeth Bagley RDCS
--- NOTE | 2019-09-16 09:52 | P.PN ---
Subjective HISTORY OF PRESENTING ILLNESS This is a pleasant 29-year-old female past medical history significant for polycystic ovarian syndrome, gestational diabetes and is currently 15 days vaginal delivery. She is seen and examined sitting up in bed in no acute distress. She continues to have pain in the epigastric region that is repr oducible with deep inspiration and palpation. Her breathing is better since admission and she denies palpitations, dizziness, nausea or vomiting. Blood pressure has been somewhat elevated however seems to correlate with her pain. Echocardiogram obtained reveals preserved LV systolic function with EF 55-60%, moderately dilated LA and mild TR. Laboratory data reviewed, WBC 9.6, hgb 11.4, plt 398, sodium 140, potassium 4.5 and creatinine 0.59. She has been started on simethicone and protonix. PHYSICAL EXAMINATION CONSTITUTIONAL: No apparent distress. HEENT: Head is normocephalic. Pupils are equal, round. Sclerae anicteric. Mucous membranes of the mouth are moist. No JVD. No carotid bruit. CHEST EXAMINATION: Lungs are clear to auscultation. No chest wall tenderness is noted on palpation or with deep breathing. HEART EXAMINATION: Regular rate and rhythm. S1, S2 heard. No murmurs, gallops or rub. EXTREMITIES: 2+ peripheral pulses, no lower extremity edema and no calf tenderness. ASSESSMENT Chest pain, atypical for angina with pleuritic features. An acute coronary event has been ruled out. vaginal delivery Polycystic ovarian syndrome maintained on metformin History of gestational diabetes PLAN Continue current medical regimen. Pain is atypical for cardiac etiology and seems related to underlying GI irritation. Advised cautious use of NSAIDS. Recommend daily blood pressure monitoring at home and follow up with Dr. Badillo in 2 weeks. Further recommendations regarding blood pressure management will take place in the office once her pain is controlled. Nurse Practitioner note has been reviewed, I agree with a documented findings and plan of care. Patient was seen and examined. Objective - Vital Signs Vital signs: Vital Signs Temp 98.2 F 09/16/19 08:19 Pulse 52 L 09/16/19 08:19 Resp 16 09/16/19 08:19 BP 154/88 09/16/19 08:56 Pulse Ox 97 09/16/19 08:19 Intake & Output 09/15/19 09/16/19 09/16/19 18:59 06:59 18:59 Intake Total 200 1350 Balance 200 1350 Weight 82.86 kg Intake: Oral 200 1350 Other: Voiding Method Toilet Toilet Toilet # Voids 2 1 - Labs CBC & Chem 7: 09/16/19 06:08 09/16/19 06:08 Labs: Abnormal Lab Results - Last 24 Hours (Table) 09/16/19 09/16/19 Range/Units 06:08 06:08 MCV 79.7 L (80.0-100.0) fL MCH 24.1 L (25.0-35.0) pg MCHC 30.2 L (31.0-37.0) g/dL Glucose 119 H (74-99) mg/dL
[2019-09-16] MEDS: HYDROmorphone 0.5 MG/0.5 ML SYRINGE IVP PRN ×3 (15:16→21:14)
[2019-09-16] MEDS: DEXTROSE 5%-0.45% NACL 1,000 ML IV SCH (15:18)
[2019-09-16 15:22] LABS: Albumin 3.6 g/dL (3.5-5.0); Bilirubin, Conjugated 0.4 mg/dL (0.0-0.3); Bilirubin, Delta 0.8 mg/dL (0.0-0.2); Total Bilirubin 2.2 mg/dL (0.2-1.3); Total Protein 6.1 g/dL (6.3-8.2)
--- NOTE | 2019-09-16 15:31 | P.PN ---
Subjective this is a pleasant 29 years old female with past medical history of hypothyroidism, and migraine. She is a patient of Dr. Lewis. Presents ottoniel chowdhury of chest pain/epigastric pain that woke her up at 1:00 in the morning pain was severe radiating to both sites and to the back. Flexure upon no change to dull achy pain it was 9/10 in severity but now is subsided, associated with epigastric and/or no sternal mild tenderness. She is also some chest tightness but no dyspnea, no nausea vomiting, no change in urine or bowel habits. She was recently diagnosed with pharyngitis by her PCP who prescribed her antibiotic Vital signs stable, on admission her blood pressure was 178/93, currently is 137/86. Her some Vitas looks stable and patient is afebrile. She has mild leukocytosis of 13.7 K. D-dimer is elevatedWith normal electrolytes and creat inine, AST is mildly elevated at 38, serial troponins are negative.chest x-ray: No acute process. EKG showed no significant ST-T changes. Ultrasound of the gallbladder is negative CT angiogram of the thoracic and abdominal and pelvic aorta: no aortic aneurysm or dissection, the lung mass and infiltrate, liver, spleen, stomach, pancreas and gallbladder appeared normal, no hydronephrosis, few sigmoid diverticula, no bowel obstruction appendix appears normal, no evidence of pulmonary embolism per radiologist Loftsman/Woman evaluated the patient and recommended echocardiogram, no need for metoprolol further recommendation which was stopped Currently patient symptoms improved she still have some vague dull epigastric pain, however patient is eating well, and she wants to go home and follow-up with her primary care doctor as instructed to within 1-2 days, also patient was instructed to follow up with her habilitation worker/pediatric to review medication she can take Patient was counseled to hold breast-feeding for 2 days until she sees her doctor Problems and management plan were discussed with the patient and he verbalized understanding and acceptance Patient was found stable and can be discharged home however he needs follow-up as an outpatient. Patient was instructed to follow up with PCP Dr. Lewis within one week and patient agrees. Also patient was instructed to follow up with j2ee consultant in 2 weeks and she agrees. Patient wants to make her own appointments 09/16/2019 Patient still have significant epigastric pain and tenderness radiating to the sites and somewhat to the back, no associated nausea vomiting and she is tolerating diet well, she is constipated and did not have bowel movement. Probably because of the ring catheter she has frequent urination but no dysuria vitals and labs are stable, patient is afebrile. Patient yesterday was started on Protonix orally, we going to switch it to IV twice a day, continue with gentle hydration, we'll check lipase, liver function test and call surgical consult patient with no dyspnea or fever or coughing. Review of systems CONSTITUTIONAL: No fever, no malaise, no fatigue. HEENT: No recent visual problems or hearing problems. Denied any sore throat. CARDIOVASCULAR: No orthopnea, PND, no palpitations, no syncope. PULMONARY: No shortness of breath, no cough, no hemoptysis. NEUROLOGICAL: No headaches, no weakness, no numbness. HEMATOLOGICAL: Denies any bleeding or petechiae. GENITOURINARY: Denies any burning micturition, frequency, or urgency. MUSCULOSKELETAL/RHEUMATOLOGICAL: Denies any joint pain, swelling, or any muscle pain. ENDOCRINE: Denies any polyuria or polydipsia. Active Medications Generic Name Dose Route Start Last Admin Trade Name Freq PRN Reason Stop Dose Admin Albuterol/Ipratropium 3 ml 09/15/19 12:06 09/15/19 12:18 Duoneb 0.5 Mg-3 Mg/3 Ml Soln INHALATION 3 ml RT-QID PRN Administration Shortness Of Breath Or Wheezing Docusate Sodium 100 mg 09/16/19 21:00 Colace PO BID ROHITH Hydromorphone HCl 0.5 mg 09/16/19 14:43 09/16/19 15:16 Dilaudid IVP 0.5 mg Q3HR PRN Administration Pain Dextrose/Sodium Chloride 1,000 mls @ 75 mls/hr 09/15/19 22:30 09/16/19 15:18 Dextrose 5%-1/2ns Iv Soln IV 75 mls/hr .[id number] ROHITH Administration Morphine Sulfate 4 mg 09/15/19 03:04 09/16/19 10:25 Morphine Sulfate (Inj) IV 4 mg Q5M PRN Administration Chest Pain Pantoprazole Sodium 40 mg 09/16/19 21:00 Protonix IVP BID ROHITH Senna 17.2 mg 09/16/19 21:00 Senokot PO 09/19/19 21:01 HS ROHITH Simethicone 80 mg 09/15/19 14:23 09/16/19 09:50 Mylicon Chew PO 80 mg QID PRN Administration Bloating Objective - Vital Signs Vital signs: Vital Signs Temp 98.2 F 09/16/19 08:19 Pulse 52 L 09/16/19 08:19 Resp 16 09/16/19 08:19 BP 154/88 09/16/19 08:56 Pulse Ox 97 09/16/19 08:19 Intake & Output 09/15/19 09/16/19 09/16/19 18:59 06:59 18:59 Intake Total 200 1350 950 Balance 200 1350 950 Weight 82.86 kg Intake: Intake, IV Titration 450 Amount Dextrose 5%-0.45% NaCl 1, 450 000 ml @ 75 mls/hr IV . [id number] ROHITH Rx#:[id number] Oral 200 1350 500 Other: Voiding Method Toilet Toilet Toilet # Voids 2 1 3 - Exam GENERAL: The patient is alert and oriented x3, not in any acute distress. Well developed, well nourished. HEENT: Pupils are round and equally reacting to light. EOMI. No scleral icterus. No conjunctival pallor. Normocephalic, atraumatic. No pharyngeal erythema. No thyromegaly. CARDIOVASCULAR: S1 and S2 present. No murmurs, rubs, or gallops. PULMONARY: Chest is clear to auscultation, no wheezing or crackles. -ABDOMEN: Soft, epigastric pain and tenderness, nondistended, normoactive bowel sounds. No palpable organomegaly. MUSCULOSKELETAL: No joint swelling or deformity. EXTREMITIES: No cyanosis, clubbing, or pedal edema. NEUROLOGICAL: Gross neurological examination did not reveal any focal deficits. SKIN: No rashes. no petechiae. - Labs CBC & Chem 7: 09/16/19 06:08 09/16/19 06:08 Labs: Abnormal Lab Results - Last 24 Hours (Table) 09/16/19 09/16/19 Range/Units 06:08 06:08 MCV 79.7 L (80.0-100.0) fL MCH 24.1 L (25.0-35.0) pg MCHC 30.2 L (31.0-37.0) g/dL Glucose 119 H (74-99) mg/dL Assessment and Plan Assessment: Diagnoses: Chest pain , atypical, cardiology cleared patient, negative CTA, most likely gastrointestinal upset versus musculoskeletal, versus other elevated d-dimer with negative CTA of the chest recent diagnosis of pharyngitis was on oral antibiotics as an outpatient she's 15 day , she had normal vaginal delivery. Patient is still breast-feeding Hypothyroidism Polycystic ovarian syndrome History of migraine Hospital course Plan: this is a pleasant 29 years old female who presents with upper abdominal and lower chest pain, patient has been evaluated by j2ee consultant who cleared her, however patient is still have pain which is mainly in the epigastrium today, so a going to check lipase and liver function test, continue with Protonix and gentle hydration also call surgical consult and check UA Plan patient is counseled to hold breast-feeding and she agrees for now until she follows up when she got cleared by her doctor Labs and medication were reviewed.. Continue same treatment. Continue with symptomatic treatment. Resume home medication. Monitor lytes and vitals. DVT and GI prophylaxis. Further recommendations of the clinical course of the patient DVT prophylaxis: Subcutaneous heparin GI Prophylaxis: Ppi
[2019-09-16] MEDS: HEPARIN SODIUM,PORCINE 5,000 UNIT/ML 1 ML VIAL SQ SCH ×2 (16:10→21:24)
[2019-09-16 17:36] LABS: Amorphous Sediment,Urine Occasional /hpf; Appearance,Urine Clear (Clear); Bilirubin,Urine Negative (Negative); Blood,Urine Moderate (Negative); Color,Urine Yellow; Glucose,Urine (UA) Negative (Negative); Hyaline Casts,Urine 3 /lpf (0-2); Ketones,Urine Negative (Negative); Leukocyte Esterase,Urine Large (Negative); Mucus,Urine Rare /hpf; Nitrite,Urine Negative (Negative); Protein,Urine Trace (Negative); RBC,Urine 45 /hpf (0-5); Specific Gravity,Urine 1.009 (1.001-1.035); Squamous Epithelial Cell,Urine 1 /hpf (0-4); Urobilinogen,Urine <2.0 mg/dL (<2.0); WBC,Urine 52 /hpf (0-5)
[2019-09-16] MEDS: SODIUM CHLORIDE 0.9% 1,000 ML IV SCH (17:47)
[2019-09-16] MEDS: IPRATROPIUM-ALBUTEROL 3 ML NEB INHALATION PRN (19:49)
[2019-09-16] MEDS: SENNOSIDES 8.6 MG TAB PO SCH (21:15)
[2019-09-16] MEDS: DOCUSATE 100 MG CAP PO SCH (21:15)
[2019-09-16] MEDS: PANTOPRAZOLE 40 MG/10 ML VIAL IVP SCH (21:15)
[2019-09-17] MEDS: HYDROmorphone 0.5 MG/0.5 ML SYRINGE IVP PRN ×7 (00:29→22:51)
[2019-09-17] MEDS: SODIUM CHLORIDE 0.9% 1,000 ML IV SCH ×3 (02:31→17:24)
[2019-09-17 07:20] LABS: Basophils % (A) 0 %; Eosinophils # (A) 0.1 k/uL (0-0.7); Eosinophils % (A) 1 %; HGB 11.6 gm/dL (11.4-16.0); Hypochromasia Slight; Lymphocytes # (A) 0.9 k/uL (1.0-4.8); Lymphocytes % (A) 8 %; MCH 24.6 pg (25.0-35.0); MCHC 31.3 g/dL (31.0-37.0); MCV 78.7 fL (80.0-100.0); Mean Platelet Volume 7.8; Monocytes # (A) 0.5 k/uL (0-1.0); Monocytes % (A) 4 %; Neutrophils # (A) 9.9 k/uL (1.3-7.7); Neutrophils % (A) 86 %; Platelet Count 423 k/uL (150-450); RDW 14.9 % (11.5-15.5); WBC 11.5 k/uL (3.8-10.6)
[2019-09-17] MEDS: PANTOPRAZOLE 40 MG/10 ML VIAL IVP SCH ×2 (07:35→20:20)
[2019-09-17] MEDS: DOCUSATE 100 MG CAP PO SCH ×2 (07:35→20:20)
[2019-09-17] MEDS: HEPARIN SODIUM,PORCINE 5,000 UNIT/ML 1 ML VIAL SQ SCH ×2 (07:36→20:20)
[2019-09-17 07:49] LABS: ALT 221 U/L (4-34); AST 173 U/L (14-36); African American GFR (CKD) >90 (>60 ml/min/1.73 sqM); Albumin 3.5 g/dL (3.5-5.0); Alkaline Phosphatase 324 U/L (38-126); Anion Gap 8 mmol/L; Blood Urea Nitrogen 8 mg/dL (7-17); Calcium 8.8 mg/dL (8.4-10.2); Carbon Dioxide 24 mmol/L (22-30); Chloride 107 mmol/L (98-107); Glucose 110 mg/dL (74-99); Non-African American GFR(CKD) >90 (>60 ml/min/1.73 sqM); Potassium 4.1 mmol/L (3.5-5.1); Sodium 139 mmol/L (137-145); Total Bilirubin 3.7 mg/dL (0.2-1.3)
[2019-09-17 08:19] LABS: Amylase 2286 U/L (30-110)
[2019-09-17 08:40] LABS: Lipase 7402 U/L (23-300)
--- NOTE | 2019-09-17 10:57 | P.GSCN ---
History of Present Illness Consult date: 09/17/19 Reason for Consult: Pancreatitis History of present illness: This a 29-year-old female who is admitted to the hospital complaints of abdominal pain. Patient is 2 weeks . She describes severe epigastric pain which started suddenly. It then radiated to her back. Patient has palpable evidence of choledocholithiasis with gallstone hepatitis. Her ultrasound is negative for gallstones however. Past Medical History Past Medical History: Thyroid Disorder Additional Past Medical History / Comment(s): PCOS History of Any Multi-Drug Resistant Organisms: None Reported Past Surgical History: Adenoidectomy, Orthopedic Surgery Additional Past Surgical History / Comment(s): Two knee surgeries Past Anesthesia/Blood Transfusion Reactions: No Reported Reaction Past Psychological History: No Psychological Hx Reported Smoking Status: Never smoker Past Alcohol Use History: Occasional Past Drug Use History: None Reported - Past Family History Father History Unknown: Yes Family Medical History: AFIB Medications and Allergies Home Medications Medication Instructions Recorded Confirmed Type Azithromycin [Zithromax Z-pack] See Taper PO DAILY 09/15/19 09/15/19 History Ibuprofen [Motrin Ib] 600 mg PO Q6H PRN 09/15/19 09/15/19 History Levothyroxine Sodium [Levoxyl] 25 mcg PO DAILY 09/15/19 09/15/19 History SUMAtriptan SUCCINATE [Imitrex] 50 mg PO DAILY PRN 09/15/19 09/15/19 History Simethicone Chew [Mylicon Chew] 80 mg PO QID PRN #30 chew 09/15/19 Rx Allergies Allergy/AdvReac Type Severity Reaction Status Date / Time No Known Allergies Allergy Verified 09/15/19 08:50 Surgical - Exam Vital Signs Pulse BP 84 153/97 09/15/19 01:32 09/15/19 01:32 - General well developed, well nourished, no distress - Eyes PERRL - ENT normal pinna - Neck no masses - Respiratory normal expansion - Cardiovascular Rhythm: regular - Abdomen Epigastric tenderness Abdomen: soft Results - Labs 09/17/19 06:22 09/17/19 06:22 Abnormal Lab Results - Last 24 Hours (Table) 09/16/19 09/16/19 09/17/19 Range/Units 06:03 17:15 06:22 WBC 11.5 H (3.8-10.6) k/uL MCV 78.7 L (80.0-100.0) fL MCH 24.6 L (25.0-35.0) pg Neutrophils # 9.9 H (1.3-7.7) k/uL Lymphocytes # 0.9 L (1.0-4.8) k/uL Creatinine (0.52-1.04) mg/dL Glucose (74-99) mg/dL Total Bilirubin 2.2 H (0.2-1.3) mg/dL Conjugated Bilirubin 0.4 H (0.0-0.3) mg/dL Delta Bilirubin 0.8 H (0.0-0.2) mg/dL AST 193 H (14-36) U/L ALT 186 H (4-34) U/L Alkaline Phosphatase 234 H (38-126) U/L Total Protein 6.1 L (6.3-8.2) g/dL Amylase (30-110) U/L Lipase 7523 H (23-300) U/L Urine Protein Trace H (Negative) Urine Blood Moderate H (Negative) Ur Leukocyte Esterase Large H (Negative) Urine RBC 45 H (0-5) /hpf Urine WBC 52 H (0-5) /hpf Amorphous Sediment Occasional H (None) /hpf Hyaline Casts 3 H (0-2) /lpf Urine Mucus Rare H (None) /hpf /18/20 Range/Units 06:22 WBC (3.8-10.6) k/uL MCV (80.0-100.0) fL MCH (25.0-35.0) pg Neutrophils # (1.3-7.7) k/uL Lymphocytes # (1.0-4.8) k/uL Creatinine 0.49 L (0.52-1.04) mg/dL Glucose 110 H (74-99) mg/dL Total Bilirubin 3.7 H (0.2-1.3) mg/dL Conjugated Bilirubin (0.0-0.3) mg/dL Delta Bilirubin (0.0-0.2) mg/dL AST 173 H (14-36) U/L ALT 221 H (4-34) U/L Alkaline Phosphatase 324 H (38-126) U/L Total Protein 6.0 L (6.3-8.2) g/dL Amylase 2286 H* (30-110) U/L Lipase 7402 H (23-300) U/L Urine Protein (Negative) Urine Blood (Negative) Ur Leukocyte Esterase (Negative) Urine RBC (0-5) /hpf Urine WBC (0-5) /hpf Amorphous Sediment (None) /hpf Hyaline Casts (0-2) /lpf Urine Mucus (None) /hpf Microbiology - Last 24 Hours (Table) 09/16/19 22:45 Urine Culture - Preliminary Urine,Voided Diabetes panel 09/16/19 09/17/19 Range/Units 06:03 06:22 Sodium 139 (137-145) mmol/L Potassium 4.1 (3.5-5.1) mmol/L Chloride 107 (98-107) mmol/L Carbon Dioxide 24 (22-30) mmol/L BUN 8 (7-17) mg/dL Creatinine 0.49 L (0.52-1.04) mg/dL Glucose 110 H (74-99) mg/dL Calcium 8.8 (8.4-10.2) mg/dL AST 193 H 173 H (14-36) U/L ALT 186 H 221 H (4-34) U/L Alkaline Phosphatase 234 H 324 H (38-126) U/L Total Protein 6.1 L 6.0 L (6.3-8.2) g/dL Albumin 3.6 3.5 (3.5-5.0) g/dL Calcium panel 09/16/19 09/17/19 Range/Units 06:03 06:22 Calcium 8.8 (8.4-10.2) mg/dL Albumin 3.6 3.5 (3.5-5.0) g/dL Pituitary panel 09/17/19 Range/Units 06:22 Sodium 139 (137-145) mmol/L Potassium 4.1 (3.5-5.1) mmol/L Chloride 107 (98-107) mmol/L Carbon Dioxide 24 (22-30) mmol/L BUN 8 (7-17) mg/dL Creatinine 0.49 L (0.52-1.04) mg/dL Glucose 110 H (74-99) mg/dL Calcium 8.8 (8.4-10.2) mg/dL Adrenal panel 09/16/19 09/17/19 Range/Units 06:03 06:22 Sodium 139 (137-145) mmol/L Potassium 4.1 (3.5-5.1) mmol/L Chloride 107 (98-107) mmol/L Carbon Dioxide 24 (22-30) mmol/L BUN 8 (7-17) mg/dL Creatinine 0.49 L (0.52-1.04) mg/dL Glucose 110 H (74-99) mg/dL Calcium 8.8 (8.4-10.2) mg/dL Total Bilirubin 2.2 H 3.7 H (0.2-1.3) mg/dL AST 193 H 173 H (14-36) U/L ALT 186 H 221 H (4-34) U/L Alkaline Phosphatase 234 H 324 H (38-126) U/L Total Protein 6.1 L 6.0 L (6.3-8.2) g/dL Albumin 3.6 3.5 (3.5-5.0) g/dL Assessment and Plan Assessment: Presumed gallstone pancreatitis. Patient's amylase lipase will be observed. She may have had a solitary gallstone or microcalcifications causing her gallstone pancreatitis.
--- NOTE | 2019-09-17 16:57 | MR ---
EXAMINATION TYPE: MR MRCP DATE OF EXAM: 09/17/2019 COMPARISON: Correlation ultrasound and CT 09/15/2019 HISTORY: 29-year-old female Abdominal pain, 2 weeks post TECHNIQUE: Multiplanar, multisequence images of the abdomen are obtained. Additional highly T2 weight ed images of the pancreatic biliary system for MRCP. 3-D rotational reconstructions generated on a de dicated workstation. FINDINGS: Liver measures 16.9 cm. Opposed phase T1-weighted sequences show no evidence for significant fatty in filtration. No focal liver lesion on T2 images. Bile duct is borderline to mildly dilated at 8 mm. Mild prominence to the central intrahepatic biliar y system. Also, the gallbladder is borderline hydropic measuring 8.9 cm long and 3.9 cm wide with miranda e layering gravel at the fundus. No abnormal wall thickening There seems to be some inflammation centered along the pancreatic head with edematous change. Some ed domingo adjacent to the third portion of the duodenum and some inflammatory fluid tracking down the retro peritoneum. Adrenal glands, kidneys, and spleen appear within normal limits No upper abdominal lymphadenopathy or ascites fluid. No gross bowel abnormality seen. IMPRESSION: 1. Suspect acute interstitial pancreatitis centered at the head of the pancreas with mild inflammator y edema tracking down the adjacent retroperitoneum. No pancreatic or peripancreatic fluid collection. 2. Mild biliary dilatation with the bile duct measuring 8 mm. Given some layering gravel at the fundu s of the gallbladder, correlate with alkaline phosphatase and bilirubin levels to exclude subtle chol edocholithiasis. No obvious filling defect within the bile duct on MRCP images.
--- NOTE | 2019-09-17 17:02 | P.PN ---
Subjective Progress Note Date: 09/17/19 Principal diagnosis: Acute pancreatitis Ms. Christensen is a 29-year-old female, who is 17 days , presented to the emergency Department with the chief complaint of epigastric pain. She was recently treated for a sinus infection with oral antibiotics, that she believes with amoxicillin and has been taking Motrin daily for pain. In the ER patient had CT angiogram of the chest and abdomen that was negative for PE. ACS was ruled out. She had an echo done showing ejection fraction of 55-60%. And eventually was found to have elevated liver enzymes, abdominal ultrasound was done showing no gallstones and CBC was within normal limits. She is currently being worked up for acute pancreatitis. Surgery and GI consult on board. On 09/17/2019 - patient is lying comfortably in the bed appears to be in no acute distress. She mentions that the pain is mostly midepigastric region, Dilaudid has been helping her with the pain. The pain mostly radiates to her back. She denies having any nausea or vomiting. Patient is currently nothing by mouth. Patient denies having any chest pain, cough or difficulty in breathing. No fevers chills or rigors. Denies having any hematuria, but she had trouble emptying her bladder, bladder scan showed retention , so Tan's catheter was placed this morning. Patient denies having any lower extremity swelling. Denies having any extremities. No headaches or blurring of vision. Active Medications Albuterol/Ipratropium (Duoneb 0.5 Mg-3 Mg/3 Ml Soln) 3 ml INHALATION RT-QID PRN PRN Reason: Shortness Of Breath Or Wheezing Last Admin: 09/16/19 19:49 Dose: 3 ml Documented by: Docusate Sodium (Colace) 100 mg PO BID ROHITH Last Admin: 09/17/19 07:35 Dose: 100 mg Documented by: Heparin Sodium (Porcine) (Heparin) 5,000 unit SQ Q12HR ROHITH Last Admin: 09/17/19 07:36 Dose: 5,000 unit Documented by: Hydromorphone HCl (Dilaudid) 1 mg IVP Q3HR PRN PRN Reason: Severe Pain Last Admin: 09/17/19 10:59 Dose: 1 mg Documented by: Hydromorphone HCl (Dilaudid) 0.5 mg IVP Q3HR PRN PRN Reason: modarate pain Last Admin: 09/17/19 14:06 Dose: 0.5 mg Documented by: Sodium Chloride (Saline 0.9%) 1,000 mls @ 130 mls/hr IV .[id number] [facility] Last Admin: 09/17/19 10:47 Dose: 130 mls/hr Documented by: Ceftriaxone Sodium 1 gm/ (Sodium Chloride) 50 mls @ 100 mls/hr IVPB Q24H [facility] Last Admin: 09/16/19 22:59 Dose: 100 mls/hr Documented by: Morphine Sulfate (Morphine Sulfate (Inj)) 4 mg IV Q5M PRN PRN Reason: Chest Pain Last Admin: 09/16/19 10:25 Dose: 4 mg Documented by: Pantoprazole Sodium (Protonix) 40 mg IVP BID [facility] Last Admin: 09/17/19 07:35 Dose: 40 mg Documented by: Senna (Senokot) 17.2 mg PO [facility] Stop: 09/19/19 21:01 Last Admin: 09/16/19 21:15 Dose: 17.2 mg Documented by: Simethicone (Mylicon Chew) 80 mg PO QID PRN PRN Reason: Bloating Last Admin: 09/16/19 17:28 Dose: 80 mg Documented by: Objective - Vital Signs Vital signs: Vital Signs Temp 98.0 F 09/17/19 11:15 Pulse 54 L 09/17/19 11:15 Resp 18 09/17/19 11:15 BP 152/95 09/17/19 11:15 Pulse Ox 95 09/17/19 11:15 Intake & Output 09/16/19 09/17/19 09/17/19 18:59 06:59 18:59 Intake Total 950 740 Output Total 2400 1060 Balance 950 -1660 -1060 Intake: Intake, IV Titration 450 740 Amount Dextrose 5%-0.45% NaCl 1, 450 000 ml @ 75 mls/hr IV . [id number] [facility] Rx#:[id number] Sodium Chloride 0.9% 1, 740 000 ml @ 130 mls/hr IV . [id number] [facility] Rx#:[id number] Oral 500 Output: Urine 2400 1060 Straight 1750 Other: Voiding Method Toilet Toilet Toilet # Voids 3 2 - Exam GEN. APPEARANCE: alert, in no apparent distress HEENT: Normocephalic, no pallor, no icterus. No JVD RESPIRATORY EXAM: Bilateral breath sounds are positive. No wheezes or crackles. CARDIOVASCULAR EXAM: S1 and S2 heard. no Additional sounds GI/ABDOMINAL EXAM: Mild epigastric tenderness. Normal bowel sounds. No guarding or rigidity. No organomegaly EXTREMITIES EXAM: No peripheral edema. No cyanosis or clubbing. NEUROLOGICAL EXAM: alert, oriented X3, no focal neurological deficits on gross exam PSYCHIATRIC EXAM: normal affect, normal mood SKIN EXAM: warm, dry, intact, normal color. Absent: rash - Labs CBC & Chem 7: 09/17/19 06:22 09/17/19 06:22 Labs: Abnormal Lab Results - Last 24 Hours (Table) 09/16/19 09/17/19 09/17/19 Range/Units 17:15 06:22 06:22 WBC 11.5 H (3.8-10.6) k/uL MCV 78.7 L (80.0-100.0) fL MCH 24.6 L (25.0-35.0) pg Neutrophils # 9.9 H (1.3-7.7) k/uL Lymphocytes # 0.9 L (1.0-4.8) k/uL Creatinine 0.49 L (0.52-1.04) mg/dL Glucose 110 H (74-99) mg/dL Total Bilirubin 3.7 H (0.2-1.3) mg/dL AST 173 H (14-36) U/L ALT 221 H (4-34) U/L Alkaline Phosphatase 324 H (38-126) U/L Total Protein 6.0 L (6.3-8.2) g/dL Amylase 2286 H* (30-110) U/L Lipase 7402 H (23-300) U/L Urine Protein Trace H (Negative) Urine Blood Moderate H (Negative) Ur Leukocyte Esterase Large H (Negative) Urine RBC 45 H (0-5) /hpf Urine WBC 52 H (0-5) /hpf Amorphous Sediment Occasional H (None) /hpf Hyaline Casts 3 H (0-2) /lpf Urine Mucus Rare H (None) /hpf Microbiology - Last 24 Hours (Table) 09/16/19 22:45 Urine Culture - Preliminary Urine,Voided Assessment and Plan Assessment: ASSESSMENT Acute pancreatitis Urinary tract infection Elevated blood pressure Polycystic ovarian disease History of gestational diabetes PLAN: At the time of presentation patient had atypical chest pain, ACS was ruled out. CT was negative for PE. Eventually LFTs, amylase lipase has been elevated, so probable acute pancreatitis causing her symptoms. Workup in progress. Continue ceftriaxone for her UTI. Continue with PPI. Patient's blood pressure has been running slightly on the higher side, hydralazine when necessary. Discussed with patient about continuing breast pumping, as she is 17 days . Discussed the treatment plan in detail with the patient at bedside. Further recommendations depending on the progress of the patient.
[2019-09-17] MEDS: hydrALAZINE HCL 25 MG TAB PO SCH ×2 (17:30→22:51)
[2019-09-17] MEDS: SENNOSIDES 8.6 MG TAB PO SCH (20:19)
[2019-09-18] MEDS: SODIUM CHLORIDE 0.9% 1,000 ML IV SCH ×4 (02:01→22:01)
[2019-09-18] MEDS: HYDROmorphone 0.5 MG/0.5 ML SYRINGE IVP PRN ×4 (02:10→21:18)
[2019-09-18 07:28] LABS: Basophils % (A) 0 %; Eosinophils # (A) 0.1 k/uL (0-0.7); Eosinophils % (A) 1 %; HCT 37.4 % (34.0-46.0); HGB 11.4 gm/dL (11.4-16.0); Hypochromasia Moderate; Lymphocytes # (A) 0.9 k/uL (1.0-4.8); Lymphocytes % (A) 7 %; MCH 24.1 pg (25.0-35.0); MCHC 30.5 g/dL (31.0-37.0); MCV 79.2 fL (80.0-100.0); Mean Platelet Volume 7.8; Monocytes # (A) 0.5 k/uL (0-1.0); Monocytes % (A) 4 %; Neutrophils # (A) 10.6 k/uL (1.3-7.7); Neutrophils % (A) 87 %; Platelet Count 444 k/uL (150-450); RBC 4.72 m/uL (3.80-5.40); RDW 15.2 % (11.5-15.5); WBC 12.2 k/uL (3.8-10.6)
[2019-09-18 07:32] LABS: ALT 213 U/L (4-34); AST 114 U/L (14-36); African American GFR (CKD) >90 (>60 ml/min/1.73 sqM); Albumin 3.2 g/dL (3.5-5.0); Alkaline Phosphatase 383 U/L (38-126); Anion Gap 6 mmol/L; Blood Urea Nitrogen 8 mg/dL (7-17); Calcium 8.7 mg/dL (8.4-10.2); Carbon Dioxide 22 mmol/L (22-30); Chloride 109 mmol/L (98-107); Glucose 100 mg/dL (74-99); Lipase 1627 U/L (23-300); Non-African American GFR(CKD) >90 (>60 ml/min/1.73 sqM); Potassium 3.6 mmol/L (3.5-5.1); Sodium 137 mmol/L (137-145); Total Protein 5.7 g/dL (6.3-8.2)
[2019-09-18 07:36] LABS: Amylase 928 U/L (30-110)
[2019-09-18] MEDS: PANTOPRAZOLE 40 MG/10 ML VIAL IVP SCH ×2 (08:02→21:14)
[2019-09-18] MEDS ORDERED: INDOMETHACIN 50MG SUPPOSITORY RECTAL ONE (09:07)
[2019-09-18] MEDS ORDERED: LEVOFLOXACIN 500MG-D5W PMX 500 MG in DEXTROSE/WATER 1 100ML.BAG IVPB STA (09:08)
[2019-09-18] MEDS ORDERED: LIDOCAINE 1% INJ 10MG/ML (20 ML MDV) ONE (09:31)
[2019-09-18] MEDS ORDERED: SUCCINYLCHOLINE CHLORIDE 100 MG/5 ML SYR IV ONE (09:31)
[2019-09-18] MEDS ORDERED: IV FLUID CONTINUATION 1,000 ML IV ONE (09:31)
[2019-09-18] MEDS ORDERED: fentaNYL (PF) 50 MCG/ML 2 ML AMP ONE (09:31)
[2019-09-18] MEDS ORDERED: PROPOFOL 10 MG/ML 20 ML VIAL IV ONE (09:31)
[2019-09-18] MEDS ORDERED: IOPAMIDOL-300 50ML BTL INJ ONE (09:50)
[2019-09-18] MEDS ORDERED: SODIUM CHLORIDE 0.9% 500 ML IV ONE (10:10)
--- NOTE | 2019-09-18 10:52 | P.CONS ---
History of Present Illness - Reason for Consult Consult date: 09/17/19 Gallstone pancreatitis, elevated bilirubin Requesting physician: Petey E Sheet (]) - Chief Complaint Abdominal pain - History of Present Illness 29-year-old female with medical history significant for hypothyroidism, migraine disorder who presented to the hospital with complaints of severe chest and epigastric pain. She reports the pain as sharp and achy and presentation. She reports radiation of the pain across her abdomen and into her back. She denied any nausea or vomiting today but did have nausea prior to presentation. She also reports some constipation since presentation to the hospital. Patient is and was admitted to the hospital for further evaluation and subsequently found to have a marked elevation in her amylase at 2002 186 and lipase of 7402 with elevated liver enzymes suggestive of gallstone pancreatitis. Patient currently being treated for such. She had marked elevation in liver enzymes with total bilirubin 3.7, alkaline phosphatase 324, AST 173 and ALT 221, other laboratory evaluation significant for a WBC of 11.5, hemoglobin 11.6, platelet count 423,000. Ultrasound of the abdomen performed and negative for CBD stones, cholelithiasis, or a dilated common bile duct. Patient is seen lying in bed reporting that she is still having episodes of abdominal pain. Review of Systems REVIEW OF SYSTEMS: CONSTITUTIONAL: Denies any fevers, chills, weight change or fatigue. CARDIOVASCULAR: Denies any chest pain, palpitations or low blood pressures but patient did have hypertension on presentation RESPIRATORY: Denies any shortness of breath, hemoptysis or cough. GENITOURINARY: No dysuria or hematuria. MUSCULOSKELETAL: No weakness reported. SKIN: Denies any new rashes or lesions, jaundice or pallor. PSYCHIATRIC: Denies any depression or anxiety. NEUROLOGY: Denies headache, denies any new focal deficits. EARS/NOSE/THROAT: No recent hearing change, congestion, nasal discharge or sore throat. EYES: No pain in eyes, discharge or change in vision. GASTROINTESTINAL: As per HPI. Past Medical History Past Medical History: Thyroid Disorder Additional Past Medical History / Comment(s): PCOS History of Any Multi-Drug Resistant Organisms: None Reported Past Surgical History: Adenoidectomy, Orthopedic Surgery Additional Past Surgical History / Comment(s): Two knee surgeries Past Anesthesia/Blood Transfusion Reactions: No Reported Reaction Past Psychological History: No Psychological Hx Reported Smoking Status: Never smoker Past Alcohol Use History: Occasional Past Drug Use History: None Reported - Past Family History Father History Unknown: Yes Family Medical History: AFIB Medications and Allergies Home Medications Medication Instructions Recorded Confirmed Type Azithromycin [Zithromax Z-pack] See Taper PO DAILY 09/15/19 09/15/19 History Ibuprofen [Motrin Ib] 600 mg PO Q6H PRN 09/15/19 09/15/19 History Levothyroxine Sodium [Levoxyl] 25 mcg PO DAILY 09/15/19 09/15/19 History SUMAtriptan SUCCINATE [Imitrex] 50 mg PO DAILY PRN 09/15/19 09/15/19 History Simethicone Chew [Mylicon Chew] 80 mg PO QID PRN #30 chew 09/15/19 Rx Allergies Allergy/AdvReac Type Severity Reaction Status Date / Time No Known Allergies Allergy Verified 09/15/19 08:50 Physical Exam Vitals: Vital Signs Temp Pulse Pulse Resp BP BP Pulse Ox 09/17/19 11:15 98.0 F 54 L 18 152/95 95 09/17/19 05:00 98.1 F 78 18 152/90 96 09/17/19 01:45 144/85 09/17/19 00:20 98.2 F 68 18 160/100 96 09/16/19 21:00 98.2 F 67 18 163/91 97 09/16/19 20:04 58 L 09/16/19 19:49 58 L 09/16/19 15:00 98 F 51 L 16 148/78 98 Intake and Output 09/16/19 09/17/19 09/17/19 22:59 06:59 14:59 Intake Total 740 Output Total 2400 410 Balance -1660 -410 Intake: Intake, IV Titration 740 Amount Sodium Chloride 0.9% 1, 740 000 ml @ 130 mls/hr IV . Q7H42M [facility] Rx#:[id number] Output: Urine 2400 410 Straight 1750 Other: Voiding Method Toilet Toilet Toilet # Voids 2 On physical examination, patient appears comfortable in no apparent distress. HEAD: Normocephalic, atraumatic. EYES: No scleral icterus. No conjunctival injection. MOUTH: No lesions, tongue midline. NECK: Trachea midline, no gross abnormalities. CHEST: Clear to auscultation with no wheezing or rhonchi appreciated. HEART: Regular rate and rhythm. ABDOMEN: Soft, moderately tender to palpation. Bowel sounds are positive. No organomegaly. No guarding or rigidity. EXTREMITIES: No pedal edema. SKIN: No rashes, no jaundice. NEUROLOGIC: Alert and oriented x3. No focal deficits. Results CBC & Chem 7: 09/18/19 07:16 09/18/19 06:57 Labs: Abnormal Lab Results - Last 24 Hours (Table) 09/16/19 09/16/19 09/17/19 Range/Units 06:03 17:15 06:22 WBC 11.5 H (3.8-10.6) k/uL MCV 78.7 L (80.0-100.0) fL MCH 24.6 L (25.0-35.0) pg Neutrophils # 9.9 H (1.3-7.7) k/uL Lymphocytes # 0.9 L (1.0-4.8) k/uL Creatinine (0.52-1.04) mg/dL Glucose (74-99) mg/dL Total Bilirubin 2.2 H (0.2-1.3) mg/dL Conjugated Bilirubin 0.4 H (0.0-0.3) mg/dL Delta Bilirubin 0.8 H (0.0-0.2) mg/dL AST 193 H (14-36) U/L ALT 186 H (4-34) U/L Alkaline Phosphatase 234 H (38-126) U/L Total Protein 6.1 L (6.3-8.2) g/dL Amylase (30-110) U/L Lipase 7523 H (23-300) U/L Urine Protein Trace H (Negative) Urine Blood Moderate H (Negative) Ur Leukocyte Esterase Large H (Negative) Urine RBC 45 H (0-5) /hpf Urine WBC 52 H (0-5) /hpf Amorphous Sediment Occasional H (None) /hpf Hyaline Casts 3 H (0-2) /lpf Urine Mucus Rare H (None) /hpf 09/17/19 Range/Units 06:22 WBC (3.8-10.6) k/uL MCV (80.0-100.0) fL MCH (25.0-35.0) pg Neutrophils # (1.3-7.7) k/uL Lymphocytes # (1.0-4.8) k/uL Creatinine 0.49 L (0.52-1.04) mg/dL Glucose 110 H (74-99) mg/dL Total Bilirubin 3.7 H (0.2-1.3) mg/dL Conjugated Bilirubin (0.0-0.3) mg/dL Delta Bilirubin (0.0-0.2) mg/dL AST 173 H (14-36) U/L ALT 221 H (4-34) U/L Alkaline Phosphatase 324 H (38-126) U/L Total Protein 6.0 L (6.3-8.2) g/dL Amylase 2286 H* (30-110) U/L Lipase 7402 H (23-300) U/L Urine Protein (Negative) Urine Blood (Negative) Ur Leukocyte Esterase (Negative) Urine RBC (0-5) /hpf Urine WBC (0-5) /hpf Amorphous Sediment (None) /hpf Hyaline Casts (0-2) /lpf Urine Mucus (None) /hpf Microbiology - Last 24 Hours (Table) 09/16/19 22:45 Urine Culture - Preliminary Urine,Voided US - abdomen: report reviewed (Ultrasound of the abdomen without evidence of cholelithiasis, choledocholithiasis or dilated CBD.) Assessment and Plan (1) Gallstone pancreatitis Narrative/Plan: 29-year-old female who presented to the hospital with complaints of severe abdominal pain, found to have a marked elevation in her liver enzymes in both hepatocellular and cholestatic pattern with a total bilirubin 3.7, alkaline phosphatase 324, AST 173 and ALT 2421 with a amylase of 2286 and a lipase of 7402. The patient has been treated for gallstone pancreatitis on pain control and IV fluid hydration. Ultrasound of the abdomen was negative for cholelithiasis, choledocholithiasis or dilated CBD. Unclear if symptoms are secondary to a gallstone which is passed through the common bile duct, or if choledocholithiasis is present given marked elevation of bilirubin at 3.7. Plan is for MRCP for further evaluation. Current Visit: Yes Status: Acute Code(s): K85.10 - BILIARY ACUTE PANCREA TITIS WITHOUT NECROSIS OR INFECTION SNOMED Code(s): 49606839 (2) Elevated liver enzymes Current Visit: Yes Status: Acute Code(s): R74.8 - ABNORMAL LEVELS OF OTHER SERUM ENZYMES SNOMED Code(s): 945299960 (3) Elevated bilirubin Current Visit: Yes Status: Acute Code(s): R17 - UNSPECIFIED JAUNDICE SNOMED Code(s): 98506136 Plan: Supportive care Clear liquid diet Nothing by mouth after midnight MRCP ordered Tentatively plan for ERCP tomorrow pending findings from MRCP and clinical course Continue IV fluid hydration Continue pain control Thank you for allowing us to participate in the care of the patient
--- NOTE | 2019-09-18 10:59 | P.PCN ---
Date of Procedure: 09/18/19 Description of Procedure: Brief history: 29-year-old female with medical history significant for hypothyroidism, migraine disorder who presented to the hospital with complaints of severe chest and epigastric pain. She reports the pain as sharp and achy and presentation. She reports radiation of the pain across her abdomen and into her back. She denied any nausea or vomiting today but did have nausea prior to presentation. She also reports some constipation since presentation to the hospital. Patient is and was admitted to the hospital for further evaluation and subsequently found to have a marked elevation in her amylase at 2002 186 and lipase of 7402 with elevated liver enzymes suggestive of gallstone pancreatitis. Patient currently being treated for such. She had marked elevation in liver enzymes with total bilirubin 3.7, alkaline phosphatase 324, AST 173 and ALT 221, other laboratory evaluation significant for a WBC of 11.5, hemoglobin 11.6, platelet count 423,000. Ultrasound of the abdomen performed and negative for CBD stones, cholelithiasis, or a dilated common bile duct. MRCP performed in evaluation was negative for choledocholithiasis but did show pancreatitis and a dilated 8 mm CBD with layering of microlithiasis and the fundus of the gallbladder. Patient was seen and continues to have abdominal pain. Plan is to proceed with ERCP given persistent elevation and total bilirubin of 2.0 today with symptoms of abdominal pain. All of the risks, benefits, side affects and possible complications of the procedure discussed with the patient and her who is bedside in detail with all their questions answered to their satisfaction. Procedure performed: ERCP with cholangiogram, sphincterotomy and balloon sweep/extraction of CBD sludge/debris Preoperative diagnoses: Suspected choledocholithiasis, elevated total bilirubin, abdominal pain, elevated liver enzymes, dilated CBD IV sedation per anesthesia Estimated blood loss: Minimal. Procedure: After informed consent was obtained from the patient and after the risks benefits and complications including bleeding perforation and pancreatitis explained in detail the patient was brought into the endoscopy unit. The patient was placed in prone position and IV conscious sedation was administered by anesthesia under continuous monitoring. The Olympus side-viewing duodenoscope was then inserted into the mouth and esophagus intubated without any difficulty. The scope was gradually advanced into the stomach and duodenum. The major papilla was identified without any difficulty. An autotome was then used to cannulate the ampulla with a wire passed into the common bile duct. Ch olangiogram was then performed with dye injected into the CBD, common hepatic duct and into the intrahepatics with visualization of the intrahepatics on imaging. The CBD did appear to be diffusely dilated at approximately 1 cm in size with a filling defect noted in the distal CBD. The autotome was then used to make a 8 mm sphincterotomy. The sphincterotome was then exchanged over the wire for a balloon extractor which was serially dilated to 8.5 and then 11.5 mm and used to sweep the duct which was productive of good bile flow and some debris/sludge. The pancreatic duct was not injected. The patient tolerated the procedure well. Impression: ERCP with cholangiogram significant for a dilated CBD with a distal CBD filling defect, sphincterotomy and balloon sweep with extraction of CBD sludge and debris Recommendations: The findings of this examination were discussed with the patient as well as her . Okay for full liquid diet. Continue treatment of pancreatitis. Surgical service following with decision about possible cholecystectomy to further to their service and the patient. Continue to monitor clinically. Continue to monitor CBC, BMP, LFTs. Indocin and IV antibiotics given.
[2019-09-18] MEDS ORDERED: HYDROmorphone 0.5 MG/0.5 ML SYRINGE IVP ONE (11:09)
--- NOTE | 2019-09-18 11:25 | P.PN ---
Progress Note - Text Progress Note Date: 09/18/19 The patient is status post ERCP. She had biliary sludge and calculi removed from her common bile duct. Cyst withdrawn was performed. On exam vital signs are stable. Abdomen soft. Patient discomfort for laparoscopic cholecystectomy in the a.m.
--- NOTE | 2019-09-18 11:30 | FL ---
FLUOROSCOPY 17 seconds of fluoroscopy time were utilized during ERCP. images document the procedure.
[2019-09-18] MEDS: DOCUSATE 100 MG CAP PO SCH ×2 (12:52→21:15)
[2019-09-18] MEDS: HEPARIN SODIUM,PORCINE 5,000 UNIT/ML 1 ML VIAL SQ SCH ×2 (12:52→21:14)
[2019-09-18] MEDS: hydrALAZINE HCL 25 MG TAB PO SCH ×3 (12:52→21:21)
[2019-09-18] MEDS: SENNOSIDES 8.6 MG TAB PO SCH (21:15)
[2019-09-19] MEDS: HYDROmorphone 0.5 MG/0.5 ML SYRINGE IVP PRN ×5 (03:34→21:55)
[2019-09-19] MEDS: SODIUM CHLORIDE 0.9% 1,000 ML IV SCH ×2 (05:51→16:54)
[2019-09-19 07:22] LABS: Basophils % (A) 0 %; Eosinophils # (A) 0.1 k/uL (0-0.7); Eosinophils % (A) 1 %; HCT 37.5 % (34.0-46.0); HGB 11.3 gm/dL (11.4-16.0); Hypochromasia Moderate; Lymphocytes % (A) 9 %; MCH 23.8 pg (25.0-35.0); MCV 79.5 fL (80.0-100.0); Mean Platelet Volume 7.7; Monocytes # (A) 0.4 k/uL (0-1.0); Monocytes % (A) 4 %; Neutrophils # (A) 9.1 k/uL (1.3-7.7); Neutrophils % (A) 85 %; Platelet Count 418 k/uL (150-450); RBC 4.72 m/uL (3.80-5.40); RDW 15.5 % (11.5-15.5); WBC 10.8 k/uL (3.8-10.6)
[2019-09-19 07:29] LABS: ALT 132 U/L (4-34); AST 30 U/L (14-36); African American GFR (CKD) >90 (>60 ml/min/1.73 sqM); Albumin 2.9 g/dL (3.5-5.0); Alkaline Phosphatase 306 U/L (38-126); Amylase 141 U/L (30-110); Anion Gap 3 mmol/L; Blood Urea Nitrogen 10 mg/dL (7-17); Calcium 8.4 mg/dL (8.4-10.2); Carbon Dioxide 25 mmol/L (22-30); Chloride 112 mmol/L (98-107); Glucose 100 mg/dL (74-99); Lipase 154 U/L (23-300); Non-African American GFR(CKD) >90 (>60 ml/min/1.73 sqM); Potassium 3.8 mmol/L (3.5-5.1); Sodium 140 mmol/L (137-145); Total Bilirubin 1.1 mg/dL (0.2-1.3); Total Protein 5.3 g/dL (6.3-8.2)
[2019-09-19] MEDS: HEPARIN SODIUM,PORCINE 5,000 UNIT/ML 1 ML VIAL SQ SCH ×3 (09:03→22:03)
[2019-09-19] MEDS: DOCUSATE 100 MG CAP PO SCH ×2 (10:48→22:05)
[2019-09-19] MEDS: PANTOPRAZOLE 40 MG/10 ML VIAL IVP SCH ×2 (10:48→22:02)
[2019-09-19] MEDS: hydrALAZINE HCL 25 MG TAB PO SCH ×3 (10:48→22:04)
[2019-09-19] MEDS ORDERED: SODIUM CHLORIDE 0.9% 300 ML IV ONE (11:34)
[2019-09-19] MEDS ORDERED: ONDANSETRON 4 MG/2 ML VIAL ONE (11:49)
[2019-09-19] MEDS ORDERED: HEPARIN SODIUM,PORCINE 5,000 UNIT/ML 1 ML VIAL ONE (11:49)
[2019-09-19] MEDS ORDERED: DEXAMETHASONE SOD PHOSPHATE 10 MG/ML 1 ML VIAL IV ONE (11:53)
[2019-09-19] MEDS ORDERED: ONDANSETRON 4 MG/2 ML VIAL IVP ONE (11:53)
[2019-09-19] MEDS ORDERED: NEOSTIGMINE 1 MG/ML 10 ML VIAL ONE (13:04)
[2019-09-19] MEDS ORDERED: KETOROLAC 30 MG/ML 1 ML VIAL ONE (13:04)
[2019-09-19] MEDS ORDERED: PROPOFOL 10 MG/ML 20 ML VIAL IV ONE (13:04)
[2019-09-19] MEDS ORDERED: KETAMINE 10 MG/ML 20 ML VIAL ONE (13:04)
[2019-09-19] MEDS ORDERED: fentaNYL (PF) 50 MCG/ML 2 ML AMP ONE (13:04)
[2019-09-19] MEDS ORDERED: MIDAZOLAM 2 MG/2 ML VIAL ONE (13:04)
[2019-09-19] MEDS ORDERED: GLYCOPYRROLATE 0.2 MG/ML 2 ML VIAL ONE (13:04)
[2019-09-19] MEDS ORDERED: HYDROmorphone (PF) 1 MG/ML ONE (13:04)
[2019-09-19] MEDS ORDERED: SUCCINYLCHOLINE CHLORIDE 100 MG/5 ML SYR IV ONE (13:04)
[2019-09-19] MEDS ORDERED: ROCURONIUM 10 MG/ML (5 ML VIAL) IV ONE (13:04)
[2019-09-19] MEDS ORDERED: LIDOCAINE 1% INJ 10MG/ML (20 ML MDV) ONE (13:04)
[2019-09-19] MEDS ORDERED: LACTATED RINGERS 1,000 ML IV ONE (13:20)
[2019-09-19] MEDS ORDERED: SODIUM CHLORIDE 0.9% 100 ML with ceFAZolin 2,000 MG IV ONE ×2 (13:28)
[2019-09-19] MEDS ORDERED: BUPIVACAIN-EPI 0.25%-1:200,000 30 ML VIAL SQ ONE (13:31)
--- NOTE | 2019-09-19 14:14 | P.OP ---
Date of Procedure: 09/19/19 Preoperative Diagnosis: Cholecystitis Postoperative Diagnosis: Cholecystitis Procedure(s) Performed: Laparoscopic cholecystectomy Anesthesia: PATRICIA Surgeon: Yung Mckeon Estimated Blood Loss (ml): 5 Pathology: other (Gallbladder) Condition: stable Disposition: PACU Description of Procedure: The patient was placed on the operating table. The patient received a general endotracheal tube anesthesia. The patients abdomen was prepped and draped in the usual sterile fashion. Through an infraumbilical stab incision, the fascia of the anterior abdominal wall was grasped with a pair of Kochers and then the Veress needle was placed in the peritoneal cavity. Position of the Veress needle was confirmed with positive drop test. The abdomen was then insufflated. After adequate insufflation, the 10 mm trocar was placed in the peritoneal cavity. Following this the laparoscope was placed in the peritoneal cavity. The patient was placed in the head-up, right side up position and then a 5 mm trocar was placed in the right lateral and right subcostal position under direct visualization. A 8 mm trocar was placed in the epigastric position. The gallbladder was grasped in the fundus and infundibulum. Traction on the gallbladder was placed in the lateral and the cephalad positions. The triangle of Calot was visualized.. The cystic duct was bluntly dissected until the union of the cystic duct and common bile duct was seen. A critical view of safety was achieved. The cystic duct was then divided and sealed with the Harmonic scissors. A PDS Endoloop was then placed throughout the cystic duct stump. The cystic artery divided and sealed with the Harmonic scissors. The gallbladder was then removed from the liver bed using Harmonic scissors. The gallbladder was then extracted through the epigastric port site. Operative field was checked for any bleeding spots and Harmonic scissors was used to coagulate the liver bed. The abdomen was irrigated. The trocars were removed. The skin was closed using interrupted 3-0 Vicryl suture. Dermabond dressing were applied. The patient tolerated the procedure well.
--- NOTE | 2019-09-19 15:35 | PN ---
PROGRESS NOTE DATE OF DICTATION: 09/19/2019 This patient is a 29-year-old white female admitted to the hospital with severe epigastric and chest pain. She had elevated LFTs and jaundice with a bilirubin of 3.7. She underwent an ERCP with biliary sphincterotomy and extraction of CBD stones and sludge yesterday by Dr. Velasco. She is doing well today. Has mild epigastric discomfort. She is scheduled for laparoscopic cholecystectomy this afternoon. PHYSICAL EXAMINATION: Appears comfortable. VITAL SIGNS: Stable. Blood pressure is 156/86, pulse rate 46, temperature 97.9. HEENT examination unremarkable. Conjunctivae pink. Sclerae anicteric. Oral cavity no lesions. NECK: No JVD or lymph node enlargement. CHEST: Clear to auscultation. HEART: Regular rate and rhythm. ABDOMEN: Soft. Mild tenderness in the epigastric area. Rest of the abdomen is benign. EXTREMITIES: No pedal edema. NEUROLOGIC: Alert and oriented x3. No focal deficits. LABS: WBC 10.8, hemoglobin 7.3. T-bilirubin is normalized to 1.1. AST and ALT are 30 and 132, respectively. IMPRESSION: 1. Choledocholithiasis, status post endoscopic retrograde cholangiopancreatography with biliary sphincterotomy and balloon extraction by Dr. Velasco yesterday. Patient is doing well. LFTs are improving. T-bilirubin normalized. 2. Acute biliary pancreatitis, gradually normalized lipase. 3. Elevated liver function tests and jaundice with significantly improved liver function tests. 4. Symptomatic gallstones, scheduled for laparoscopic cholecystectomy later today. RECOMMENDATIONS: 1. Monitor LFTs. 2. Continue symptomatic and supportive care and antibiotics. 3. Repeat labs in the morning. 4. We will follow with you closely. Thank you for this consultation. MMODL / IJN: [id number] /
[2019-09-19] MEDS: SENNOSIDES 8.6 MG TAB PO SCH (22:24)
--- NOTE | 2019-09-19 22:46 | P.PN ---
Subjective Progress Note Date: 09/18/19 Principal diagnosis: Acute pancreatitis Ms. Christensen is a 29-year-old female, who is 17 days , presented to the emergency Department with the chief complaint of epigastric pain. She was recently treated for a sinus infection with oral antibiotics, that she believes with amoxicillin and has been taking Motrin daily for pain. In the ER patient had CT angiogram of the chest and abdomen that was negative for PE. ACS was ruled out. She had an echo done showing ejection fraction of 55-60%. And eventually was found to have elevated liver enzymes, abdominal ultrasound was done showing no gallstones and CBC was within normal limits. She is currently being worked up for acute pancreatitis. Surgery and GI consult on board. On 09/17/2019 - patient is lying comfortably in the bed appears to be in no acute distress. She mentions that the pain is mostly midepigastric region, Dilaudid has been helping her with the pain. The pain mostly radiates to her back. She denies having any nausea or vomiting. Patient is currently nothing by mouth. Patient denies having any chest pain, cough or difficulty in breathing. No fevers chills or rigors. Denies having any hematuria, but she had trouble emptying her bladder, bladder scan showed retention , so Tan's catheter was placed this morning. Patient denies having any lower extremity swelling. Denies having any extremities. No headaches or blurring of vision. On 09/18/2019 -no acute events reported by nursing staff. Patient had MRCP done yesterday showing acute interstitial pancreatitis centered at the head of the pancreas with mild inflammatory edema tracking down the edges and r etroperitoneum. Mild biliary dilatation with bile duct measuring 8 mm with some layering gravel at the fundus of the gallbladder. So GI Dr. Yepez she performed ERCP and it was showing dilated CBD with distal CBD filling defect. So eventually surgical service was consulted for possible cholecystectomy. Patient's vitals have been stable, blood pressure under better control with hydralazine and labs showed downtrend of AST ALT amylase and lipase. Objective - Vital Signs Vital signs: Vital Signs Temp 97.3 F L 09/18/19 10:38 Pulse 77 09/18/19 11:15 Resp 18 09/18/19 11:15 BP 163/98 09/18/19 11:15 Pulse Ox 96 09/18/19 11:15 Intake & Output 09/17/19 09/18/19 09/18/19 18:59 06:59 18:59 Intake Total 0 175 Output Total 1260 1500 700 Balance -1260 -1500 -525 Intake: IV 175 Oral 0 Output: Urine 1260 1500 700 Other: Voiding Method Toilet Toilet Indwelling Catheter # Voids 0 # Bowel Movements 1 - Exam GEN. APPEARANCE: alert, in no apparent distress HEENT: Normocephalic, no pallor, no icterus. No JVD RESPIRATORY EXAM: Bilateral breath sounds are positive. No wheezes or crackles. CARDIOVASCULAR EXAM: S1 and S2 heard. no Additional sounds GI/ABDOMINAL EXAM: Mild epigastric tenderness. Normal bowel sounds. No guarding or rigidity. No organomegaly EXTREMITIES EXAM: No peripheral edema. No cyanosis or clubbing. NEUROLOGICAL EXAM: alert, oriented X3, no focal neurological deficits on gross exam PSYCHIATRIC EXAM: normal affect, normal mood - Labs CBC & Chem 7: 09/19/19 06:48 09/19/19 06:48 Labs: Abnormal Lab Results - Last 24 Hours (Table) 09/18/19 09/18/19 Range/Units 06:57 07:16 WBC 12.2 H (3.8-10.6) k/uL MCV 79.2 L (80.0-100.0) fL MCH 24.1 L (25.0-35.0) pg MCHC 30.5 L (31.0-37.0) g/dL Neutrophils # 10.6 H (1.3-7.7) k/uL Lymphocytes # 0.9 L (1.0-4.8) k/uL Chloride 109 H (98-107) mmol/L Creatinine 0.44 L (0.52-1.04) mg/dL Glucose 100 H (74-99) mg/dL Total Bilirubin 2.0 H (0.2-1.3) mg/dL AST 114 H (14-36) U/L ALT 213 H (4-34) U/L Alkaline Phosphatase 383 H (38-126) U/L Total Protein 5.7 L (6.3-8.2) g/dL Albumin 3.2 L (3.5-5.0) g/dL Amylase 928 H* (30-110) U/L Lipase 1627 H (23-300) U/L Microbiology - Last 24 Hours (Table) 09/16/19 22:45 Urine Culture - Final Urine,Voided Assessment and Plan Assessment: ASSESSMENT Acute pancreatitis Urinary tract infection Elevated blood pressure Polycystic ovarian disease History of gestational diabetes PLAN: MRCP done yesterday and ERCP done today showing dilated common bile duct and biliary sludge. Surgery service for possible cholecystectomy. Continue w ith current medication regimen. Blood pressure under better control with hydralazine. Further recommendations to follow depending on the progress of the patient.
--- NOTE | 2019-09-19 22:53 | P.PN ---
Subjective Progress Note Date: 09/19/19 Principal diagnosis: Acute pancreatitis Ms. Christensen is a 29-year-old female, who is 17 days , presented to the emergency Department with the chief complaint of epigastric pain. She was recently treated for a sinus infection with oral antibiotics, that she believes with amoxicillin and has been taking Motrin daily for pain. In the ER patient had CT angiogram of the chest and abdomen that was negative for PE. ACS was ruled out. She had an echo done showing ejection fraction of 55-60%. And eventually was found to have elevated liver enzymes, abdominal ultrasound was done showing no gallstones and CBC was within normal limits. She is currently being worked up for acute pancreatitis. Surgery and GI consult on board. On 09/17/2019 - patient is lying comfortably in the bed appears to be in no acute distress. She mentions that the pain is mostly midepigastric region, Dilaudid has been helping her with the pain. The pain mostly radiates to her back. She denies having any nausea or vomiting. Patient is currently nothing by mouth. Patient denies having any chest pain, cough or difficulty in breathing. No fevers chills or rigors. Denies having any hematuria, but she had trouble emptying her bladder, bladder scan showed retention , so Tan's catheter was placed this morning. Patient denies having any lower extremity swelling. Denies having any extremities. No headaches or blurring of vision. On 09/18/2019 -no acute events reported by nursing staff. Patient had MRCP done yesterday showing acute interstitial pancreatitis centered at the head of the pancreas with mild inflammatory edema tracking down the edges and r etroperitoneum. Mild biliary dilatation with bile duct measuring 8 mm with some layering gravel at the fundus of the gallbladder. So GI Dr. Yepez she performed ERCP and it was showing dilated CBD with distal CBD filling defect. So eventually surgical service was consulted for possible cholecystectomy. Patient's vitals have been stable, blood pressure under better control with hydralazine and labs showed downtrend of AST ALT amylase and lipase. On 09/19/2019-patient is status post laparoscopic cholecystectomy done this afternoon. Patient complains of soreness in the right upper quadrant of the abdomen. Denies having any nausea vomiting or diarrhea. Patient had her snack in the evening and tolerated it well. No chest pain, no SOB,or cough. Patient's vitals have been reviewed and they are stable. Labs from this morning showed downtrending of LFTs along with amylase and lipase decreasing. Active Medications Albuterol/Ipratropium (Duoneb 0.5 Mg-3 Mg/3 Ml Soln) 3 ml INHALATION RT-QID PRN PRN Reason: Shortness Of Breath Or Wheezing Last Admin: 09/16/19 19:49 Dose: 3 ml Documented by: Docusate Sodium (Colace) 100 mg PO BID [facility] Last Admin: 09/19/19 22:05 Dose: 100 mg Documented by: Heparin Sodium (Porcine) (Heparin) 5,000 unit SQ Q12HR [facility] Last Admin: 09/19/19 22:03 Dose: 5,000 unit Documented by: Hydralazine HCl (Apresoline) 25 mg PO TID [facility] Last Admin: 09/19/19 22:04 Dose: 25 mg Documented by: Hydromorphone HCl (Dilaudid) 1 mg IVP Q3HR PRN PRN Reason: Severe Pain Last Admin: 09/19/19 21:55 Dose: 1 mg Documented by: Hydromorphone HCl (Dilaudid) 0.5 mg IVP Q3HR PRN PRN Reason: modarate pain Last Admin: 09/18/19 11:15 Dose: 0.5 mg Documented by: Sodium Chloride (Saline 0.9%) 1,000 mls @ 130 mls/hr IV .Q7H42M [facility] Last Admin: 09/19/19 16:54 Dose: 130 mls/hr Documented by: Ceftriaxone Sodium 1 gm/ (Sodium Chloride) 50 mls @ 100 mls/hr IVPB Q24H [facility] Last Admin: 09/19/19 22:07 Dose: 100 mls/hr Documented by: Morphine Sulfate (Morphine Sulfate (Inj)) 4 mg IV Q5M PRN PRN Reason: Chest Pain Last Admin: 09/16/19 10:25 Dose: 4 mg Documented by: Pantoprazole Sodium (Protonix) 40 mg IVP BID [facility] Last Admin: 09/19/19 22:02 Dose: 40 mg Documented by: Simethicone (Mylicon Chew) 80 mg PO QID PRN PRN Reason: Bloating Last Admin: 09/16/19 17:28 Dose: 80 mg Documented by: Objective - Vital Signs Vital signs: Vital Signs Temp 98.0 F 09/19/19 15:00 Pulse 50 L 09/19/19 15:00 Resp 18 09/19/19 15:00 BP 133/81 09/19/19 15:00 Pulse Ox 96 09/19/19 15:00 Intake & Output 09/18/19 09/19/19 09/19/19 18:59 06:59 18:59 Intake Total 633 731 7284 Output Total 1050 1650 905 Balance -875 -870 1235 Intake: IV 175 1100 Intake, IV Titration 780 1040 Amount Sodium Chloride 0.9% 1, 780 1040 000 ml @ 130 mls/hr IV . Q7H42M [facility] Rx#:[id number] Output: Urine 1050 1650 900 Estimated Blood Loss 5 Other: Voiding Method Indwelling Catheter Indwelling Catheter Indwelling Catheter # Bowel Movements 1 - Exam GEN. APPEARANCE: alert, in no apparent distress HEENT: Normocephalic, no pallor, no icterus. No JVD RESPIRATORY EXAM: Bilateral breath sounds are positive. No wheezes or crackles. CARDIOVASCULAR EXAM: S1 and S2 heard. no Additional sounds GI/ABDOMINAL EXAM: Mild epigastric tenderness. Normal bowel sounds. No guarding or rigidity. EXTREMITIES EXAM: No peripheral edema. No cyanosis or clubbing. NEUROLOGICAL EXAM: alert, oriented X3, no focal neurological deficits on gross exam PSYCHIATRIC EXAM: normal affect, normal mood - Labs CBC & Chem 7: 09/19/19 06:48 09/19/19 06:48 Labs: Abnormal Lab Results - Last 24 Hours (Table) 09/19/19 09/19/19 Range/Units 06:48 06:48 WBC 10.8 H (3.8-10.6) k/uL Hgb 11.3 L (11.4-16.0) gm/dL MCV 79.5 L (80.0-100.0) fL MCH 23.8 L (25.0-35.0) pg MCHC 30.0 L (31.0-37.0) g/dL Neutrophils # 9.1 H (1.3-7.7) k/uL Chloride 112 H (98-107) mmol/L Glucose 100 H (74-99) mg/dL ALT 132 H (4-34) U/L Alkaline Phosphatase 306 H (38-126) U/L Total Protein 5.3 L (6.3-8.2) g/dL Albumin 2.9 L (3.5-5.0) g/dL Amylase 141 H (30-110) U/L Assessment and Plan Assessment: ASSESSMENT Acute pancreatitis secondary to choledocholithiasis Urinary tract infection Elevated blood pressure Polycystic ovarian disease History of gestational diabetes PLAN: Acute Pancreatitis secondary to choledocholithiasis, status post ERCP with biliary sphincterotomy and balloon extraction by Dr. Velasco and status post laparoscopic cholecystectomy done today. She is tolerating oral diet. Continue with current antibiotic medication regimen. Encouraged incentive spirometry use and early ambulation. Anticipate discharge in the next 24 to 48 hours.
[2019-09-20] MEDS: SODIUM CHLORIDE 0.9% 1,000 ML IV SCH ×3 (01:04→14:42)
[2019-09-20] MEDS: HYDROmorphone 0.5 MG/0.5 ML SYRINGE IVP PRN ×5 (01:12→23:39)
[2019-09-20 07:05] LABS: Basophils % (A) 0 %; Eosinophils # (A) 0.1 k/uL (0-0.7); Eosinophils % (A) 1 %; HCT 33.7 % (34.0-46.0); HGB 10.7 gm/dL (11.4-16.0); Hypochromasia Marked; Lymphocytes # (A) 1.2 k/uL (1.0-4.8); Lymphocytes % (A) 15 %; MCH 25.3 pg (25.0-35.0); MCHC 31.6 g/dL (31.0-37.0); MCV 80.2 fL (80.0-100.0); Mean Platelet Volume 7.6; Monocytes # (A) 0.5 k/uL (0-1.0); Monocytes % (A) 6 %; Neutrophils # (A) 6.5 k/uL (1.3-7.7); Neutrophils % (A) 78 %; Platelet Count 375 k/uL (150-450); RDW 15.3 % (11.5-15.5); WBC 8.3 k/uL (3.8-10.6)
[2019-09-20 07:14] LABS: ALT 99 U/L (4-34); AST 36 U/L (14-36); African American GFR (CKD) >90 (>60 ml/min/1.73 sqM); Albumin 2.7 g/dL (3.5-5.0); Alkaline Phosphatase 227 U/L (38-126); Anion Gap 3 mmol/L; Bilirubin, Delta 0.4 mg/dL (0.0-0.2); Bilirubin,Unconjugated 0.4 mg/dL (0.0-1.1); Blood Urea Nitrogen 10 mg/dL (7-17); Carbon Dioxide 25 mmol/L (22-30); Chloride 111 mmol/L (98-107); Glucose 106 mg/dL (74-99); Non-African American GFR(CKD) >90 (>60 ml/min/1.73 sqM); Potassium 3.8 mmol/L (3.5-5.1); Sodium 139 mmol/L (137-145); Total Bilirubin 0.8 mg/dL (0.2-1.3); Total Protein 4.9 g/dL (6.3-8.2)
[2019-09-20] MEDS: PANTOPRAZOLE 40 MG/10 ML VIAL IVP SCH ×2 (07:38→21:46)
[2019-09-20] MEDS: HEPARIN SODIUM,PORCINE 5,000 UNIT/ML 1 ML VIAL SQ SCH ×2 (07:38→21:47)
[2019-09-20] MEDS: hydrALAZINE HCL 25 MG TAB PO SCH ×3 (07:38→21:46)
[2019-09-20] MEDS: DOCUSATE 100 MG CAP PO SCH ×2 (07:39→21:46)
--- NOTE | 2019-09-20 07:52 | P.PN ---
Subjective this is a pleasant 29 years old female with past medical history of hypothyroidism, and migraine. She is a patient of Dr. Lewis. Presents ottoniel chowdhury of chest pain/epigastric pain that woke her up at 1:00 in the morning pain was severe radiating to both sites and to the back. Flexure upon no change to dull achy pain it was 9/10 in severity but now is subsided, associated with epigastric and/or no sternal mild tenderness. She is also some chest tightness but no dyspnea, no nausea vomiting, no change in urine or bowel habits. She was recently diagnosed with pharyngitis by her PCP who prescribed her antibiotic Vital signs stable, on admission her blood pressure was 178/93, currently is 137/86. Her some Vitas looks stable and patient is afebrile. She has mild leukocytosis of 13.7 K. D-dimer is elevatedWith normal electrolytes and creat inine, AST is mildly elevated at 38, serial troponins are negative.chest x-ray: No acute process. EKG showed no significant ST-T changes. Ultrasound of the gallbladder is negative CT angiogram of the thoracic and abdominal and pelvic aorta: no aortic aneurysm or dissection, the lung mass and infiltrate, liver, spleen, stomach, pancreas and gallbladder appeared normal, no hydronephrosis, few sigmoid diverticula, no bowel obstruction appendix appears normal, no evidence of pulmonary embolism per radiologist Heavy Mobile Equipment Repairer evaluated the patient and recommended echocardiogram, no need for metoprolol further recommendation which was stopped Currently patient symptoms improved she still have some vague dull epigastric pain, however patient is eating well, and she wants to go home and follow-up with her primary care doctor as instructed to within 1-2 days, also patient was instructed to follow up with her wool hat finisher/pediatric to review medication she can take Patient was counseled to hold breast-feeding for 2 days until she sees her doctor Problems and management plan were discussed with the patient and he verbalized understanding and acceptance Patient was found stable and can be discharged home however he needs follow-up as an outpatient. Patient was instructed to follow up with PCP Dr. Lewis within one week and patient agrees. Also patient was instructed to follow up with stay cutter in 2 weeks and she agrees. Patient wants to make her own appointments 09/16/2019 Patient still have significant epigastric pain and tenderness radiating to the sites and somewhat to the back, no associated nausea vomiting and she is tolerating diet well, she is constipated and did not have bowel movement. Probably because of the ring catheter she has frequent urination but no dysuria vitals and labs are stable, patient is afebrile. Patient yesterday was started on Protonix orally, we going to switch it to IV twice a day, continue with gentle hydration, we'll check lipase, liver function test and call surgical consult patient with no dyspnea or fever or coughing. 09/20/2019 Patient with suspected gallstone pancreatitis, she is status post laparoscopic cholecystectomy. 2 days' postop day #1. She still have some RUQ pain and tenderness, no rebound tenderness. She is tolerating regular diet, no vomiting, she did not have bowel movement and passing gases Vitals are stable and patient is afebrile. WBC is back to normal, liver enzymes are trending down as well as lipase Patient remains on Rocephin, normal saline at 1 30 mL/h, we will allow her to 50 mL per hour Laparoscopic wounds are clean and closed DC Tan catheter Objective - Vital Signs Vital signs: Vital Signs Temp 97.6 F 09/20/19 04:15 Pulse 43 L 09/20/19 04:15 Resp 18 09/20/19 04:15 BP 149/84 09/20/19 04:15 Pulse Ox 97 09/20/19 04:15 Intake & Output 09/19/19 09/20/19 09/20/19 18:59 06:59 18:59 Intake Total 2360 1090 Output Total 905 1100 Balance 1455 -10 Intake: IV 1100 Intake, IV Titration 1040 1090 Amount Sodium Chloride 0.9% 1, 1040 1040 000 ml @ 130 mls/hr IV . Q7H42M [facility] Rx#:[id number] cefTRIAXone 1 gm In 50 Sodium Chloride 0.9% 50 ml @ 100 mls/hr IVPB Q24H [facility] Rx#:[id number] Oral 220 Output: Urine 900 1100 Estimated Blood Loss 5 Other: Voiding Method Indwelling Catheter Indwelling Catheter - Exam GENERAL: The patient is alert and oriented x3, not in any acute distress. Well developed, well nourished. HEENT: Pupils are round and equally reacting to light. EOMI. No scleral icterus. No conjunctival pallor. Normocephalic, atraumatic. No pharyngeal erythema. No thyromegaly. CARDIOVASCULAR: S1 and S2 present. No murmurs, rubs, or gallops. PULMONARY: Chest is clear to auscultation, no wheezing or crackles. -ABDOMEN: Soft, RUQ tenderness, no rebound tenderness, nondistended, normoactive bowel sounds. No palpable organomegaly. Laparoscopic wounds are closed MUSCULOSKELETAL: No joint swelling or deformity. EXTREMITIES: No cyanosis, clubbing, or pedal edema. NEUROLOGICAL: Gross neurological examination did not reveal any focal deficits. SKIN: No rashes. no petechiae. - Labs CBC & Chem 7: 09/20/19 06:45 09/20/19 06:45 Labs: Abnormal Lab Results - Last 24 Hours (Table) 09/20/19 09/20/19 Range/Units 06:45 06:45 Hgb 10.7 L (11.4-16.0) gm/dL Hct 33.7 L (34.0-46.0) % Chloride 111 H (98-107) mmol/L Glucose 106 H (74-99) mg/dL Calcium 8.0 L (8.4-10.2) mg/dL Delta Bilirubin 0.4 H (0.0-0.2) mg/dL ALT 99 H (4-34) U/L Alkaline Phosphatase 227 H (38-126) U/L Total Protein 4.9 L (6.3-8.2) g/dL Albumin 2.7 L (3.5-5.0) g/dL Assessment and Plan Assessment: Diagnoses: Possible gallstone pancreatitis, status post laparoscopic cholecystectomy Transaminitis secondary to above, improving recent diagnosis of pharyngitis was on oral antibiotics as an outpatient she's 15 day , she had normal vaginal delivery. Patient is still breast-feeding Hypothyroidism Polycystic ovarian syndrome History of migraine Hospital course Plan: this is a pleasant 29 years old female who presents with upper abdominal and lower chest pain, continue with pain medication and antibiotic, lower IV fluids, DC Tan catheter and check a bladder scan. Follow-up recommendation by GI and surgery services recommendation Plan patient is counseled to hold breast-feeding and she agrees for now until she follows up when she got cleared by her doctor Labs and medication were reviewed.. Continue same treatment. Continue with symptomatic treatment. Resume home medication. Monitor lytes and vitals. DVT and GI prophylaxis. Further recommendations of the clinical course of the patient DVT prophylaxis: Subcutaneous heparin GI Prophylaxis: Ppi Possible discharge in 24-48 hours and was cleared by other consultants
--- NOTE | 2019-09-20 12:14 | P.PN ---
Progress Note - Text Progress Note Date: 09/20/19 Patient states she feels better. She still has significant right quadrant pain. On exam her vital signs are stable. Abdomen soft. Incision sites are clean dry intact Postoperative day 1 from laparoscopic cholecystectomy Patient discharged home tomorrow.
[2019-09-20] MEDS: SIMETHICONE 80 MG CHEWABLE PO PRN (17:45)
[2019-09-20] MEDS: HYDROcodone/APAP 5-325MG 1 EACH TAB PO PRN (17:45)
--- NOTE | 2019-09-20 22:03 | PN ---
PROGRESS NOTE DATE OF DICTATION: 09/20/2019 This patient is a 29-year-old pleasant white female admitted to the hospital with abdominal pain, elevated LFTs and jaundice, status post ERCP by Dr. Velasco 2 days ago. She underwent laparoscopic cholecystectomy yesterday. She is complaining of some right shoulder pain and right-sided abdominal pain. PHYSICAL EXAMINATION: Appears comfortable. VITAL SIGNS: Stable. Blood pressure is 144/79, pulse rate 56, temperature 98.3. HEENT examination unremarkable. Sclerae anicteric. Oral cavity no lesions. NECK: No JVD or lymph node enlargement. CHEST: Clear to auscultation. HEART: Regular rate and rhythm. ABDOMEN: Soft. There was tenderness in the right upper quadrant area, but there was no rebound or rigidity. EXTREMITIES: No pedal edema. NEUROLOGIC: Alert and oriented x3. No focal deficits. LABS: Labs from today show WBC 8.3, hemoglobin 10.7, platelets normal. Basic metabolic panel is within normal limits. AST and ALT are 99 and 226, respectively. T-bilirubin is 0.8 and alkaline phosphatase is 227. IMPRESSION: 1. Epigastric pain with elevated liver function tests and jaundice, status post endoscopic retrograde cholangiopancreatography with biliary sphincterotomy and common bile duct stone extraction by Dr. Velasco 2 days ago. 2. Symptomatic gallstones, status post gallbladder surgery yesterday. 3. Right upper quadrant abdominal pain since this morning. Surgery following the patient closely. 4. Acute biliary pancreatitis, resolved. RECOMMENDATIONS: 1. Monitor LFTs closely. 2. Management per Surgical Services. 3. Pain medications as needed. 4. Continue antibiotics. Will follow with you closely. Thank you for this consultation. MMODL / IJN: [id number] /
[2019-09-21] MEDS: HYDROmorphone 0.5 MG/0.5 ML SYRINGE IVP PRN (03:53)
[2019-09-21] MEDS: HEPARIN SODIUM,PORCINE 5,000 UNIT/ML 1 ML VIAL SQ SCH (08:03)
[2019-09-21] MEDS: PANTOPRAZOLE 40 MG/10 ML VIAL IVP SCH (08:03)
[2019-09-21] MEDS: HYDROcodone/APAP 5-325MG 1 EACH TAB PO PRN ×2 (08:05→13:23)
[2019-09-21 08:39] LABS: ALT 85 U/L (4-34); AST 34 U/L (14-36); African American GFR (CKD) >90 (>60 ml/min/1.73 sqM); Albumin 3.1 g/dL (3.5-5.0); Alkaline Phosphatase 211 U/L (38-126); Amylase 127 U/L (30-110); Anion Gap 5 mmol/L; Basophils % (A) 0 %; Bilirubin, Delta 0.3 mg/dL (0.0-0.2); Bilirubin,Unconjugated 0.4 mg/dL (0.0-1.1); Blood Urea Nitrogen 11 mg/dL (7-17); Calcium 8.3 mg/dL (8.4-10.2); Carbon Dioxide 26 mmol/L (22-30); Chloride 109 mmol/L (98-107); Eosinophils # (A) 0.1 k/uL (0-0.7); Eosinophils % (A) 1 %; Glucose 101 mg/dL (74-99); HCT 36.7 % (34.0-46.0); HGB 11.2 gm/dL (11.4-16.0); Hypochromasia Moderate; Lipase 199 U/L (23-300); Lymphocytes # (A) 1.4 k/uL (1.0-4.8); Lymphocytes % (A) 16 %; MCH 24.6 pg (25.0-35.0); MCHC 30.4 g/dL (31.0-37.0); MCV 81.1 fL (80.0-100.0); Mean Platelet Volume 7.6; Monocytes # (A) 0.5 k/uL (0-1.0); Monocytes % (A) 5 %; Neutrophils # (A) 6.4 k/uL (1.3-7.7); Neutrophils % (A) 76 %; Non-African American GFR(CKD) >90 (>60 ml/min/1.73 sqM); Platelet Count 368 k/uL (150-450); Potassium 3.6 mmol/L (3.5-5.1); RBC 4.53 m/uL (3.80-5.40); RDW 15.4 % (11.5-15.5); Sodium 140 mmol/L (137-145); Total Bilirubin 0.7 mg/dL (0.2-1.3); Total Protein 5.5 g/dL (6.3-8.2); WBC 8.4 k/uL (3.8-10.6)
[2019-09-21] MEDS: hydrALAZINE HCL 25 MG TAB PO SCH ×2 (08:57→13:23)
[2019-09-21] MEDS: DOCUSATE 100 MG CAP PO SCH (08:57)
--- NOTE | 2019-09-21 12:38 | PN ---
PROGRESS NOTE DATE OF DICTATION: 09/21/2019 Patient is a 29-year-old, pleasant, white female admitted to the hospital with gallstone pancreatitis and elevated LFTs and jaundice, status post ERCP 2 days ago for CBD stone extractor, status post lap catracho 2 days ago. She has some epigastric and right shoulder pain. Overall she is feeling better. No fever, chills, night sweats. PHYSICAL EXAMINATION: Blood pressure is 160/91, pulse rate 61, temperature 97.7 HEENT: Examination unremarkable, conjunctivae are pink, sclerae nonicteric, oral cavity no lesions. NECK: No JVD or lymph node enlargement. CHEST: Clear to auscultation. HEART: Regular rate and rhythm. ABDOMEN: Mild tenderness in the right upper quadrant area. Rest of the abdomen benign, bowel sounds are positive, no organomegaly. EXTREMITIES: No pedal edema. NEUROLOGIC: Alert and oriented x3. No focal deficits. LABS: WBC 8.4, hemoglobin 11.2, platelets normal. AST and ALT are 34 and 85 respectively. T- bilirubin 0.5 and alkaline phosphatase 2 11. IMPRESSION: 1. Acute gallstone pancreatitis, status post ERCP and laparoscopic cholecystectomy. Patient gradually improving. 2. Elevated liver function tests, gradually improving. 3. Pancreatitis resolved. RECOMMENDATION: 1. Advance diet as per surgery. 2. Continue pain medications as needed. 3. Increase ambulation. 4. We will follow with you closely. Thank you for this consultation. MAGUI / TORIBIO: [id number] /
[2019-09-21 13:53] VITALS: BP 135/79; PULSE 98; RESP 18; TEMP 98.5
--- NOTE | 2019-09-22 00:34 | P.DS ---
Providers Date of admission: 09/17/19 10:13 Attending physician: Alden Ag Consults: 09/15/19 03:05 Consult Physician Urgent Consulting Provider: [facility] Consult Reason/Comments: post hypertensive urgency Do you want consulting provider notified?: Yes, Notify in am 09/16/19 14:42 Consult Physician Urgent Consulting Provider: Yung Mckeon Consult Reason/Comments: abdominal pain and tenderness Do you want consulting provider notified?: Yes 09/16/19 17:34 Consult Physician Urgent Consulting Provider: Ashley Robins Consult Reason/Comments: pancreatitis Do you want consulting provider notified?: Yes Primary care physician: Megan Lewis Hospital Course: Diagnoses: gallstone pancreatitis, status post laparoscopic cholecystectomy Transaminitis secondary to above, improving recent diagnosis of pharyngitis was on oral antibiotics as an outpatient, improved she's 3 weeks , she had normal vaginal delivery. Patient is still breast-feeding, she was advised to hold breast-feeding and she agrees Hypothyroidism Polycystic ovarian syndrome History of migraine Hospital course: this is a pleasant 29 years old female with past medical history of hypothyroi dism, and migraine. She is a patient of Dr. Lewis. Presents because of chest pain/epigastric pain that woke her up at 1:00 in the morning initially she was admitted for chest pain and regroover evaluated the patient and cleared her for discharge but patient had persistent epigastric pain and tenderness, blood work showed elevated lipase and liver function test secondary to gallstone pancreatitis, Patient has been evaluated by GI and surgical service She is status post ERCP with cholangiogram: sphincterotomy and balloon sweep/extraction of CBD sludge/debris. Choledocholithiasis suspected with dilated CBD. Patient underwent laparoscopic cholecystectomy on 09/18 Postoperatively patient was doing well, her pain controlled with some mild residual pain which is expected, she started diet with no nausea vomiting Eventually patient returned to her baseline, no other complaints like no chest pain or dyspnea. Patient was cleared for discharge by all consultants including cardiology, [facility] and surgery services Patient will be discharged on short course of oral antibiotic Ceftin Problems and management plan were discussed with the patient and he verbalized understanding and acceptance Patient was found stable and can be discharged home however he needs follow-up as an outpatient. Patient was instructed to follow up with PCP within one week and patient agrees. I reviewed appointments with the patient and she agrees with all appointments made for the patient with her PCP Dr. Lewis, Dr. Thomas and Dr. Self the iron plastic bullet maker, and patient said she will follow up, See discharge instructions Gen: patient is a AAOx3, no distress CVS: S1-S2, RRR, no murmur Lungs: B/L CTA, no wheezing -Abdomen: soft, no distention, no tenderness, positive bowel sounds. Laparosc opic wounds are closed Extremity: no leg edema or induration Time spent more than 35 minutes Patient Condition at Discharge: Stable Plan - Discharge Summary Discharge Rx Participant: No New Discharge Prescriptions: New Simethicone Chew [Mylicon Chew] 80 mg PO QID PRN #30 chew PRN Reason: Bloating Docusate [Colace] 100 mg PO BID #20 capsule HYDROcodone/APAP 5-325MG [[place] 5-325] 1 tab PO Q6HR PRN #10 tab PRN Reason: Pain hydrALAZINE HCL [Apresoline] 25 mg PO TID #90 tab Cefuroxime Axetil [Ceftin] 500 mg PO BID 5 Days #10 tab Pantoprazole Sodium [Protonix] 40 mg PO DAILY #7 tablet.dr Mcguire SUMAtriptan SUCCINATE [Imitrex] 50 mg PO DAILY PRN PRN Reason: Migraine Headache Levothyroxine Sodium [Levoxyl] 25 mcg PO DAILY Discontinued Azithromycin [Zithromax Z-pack] See Taper PO DAILY Ibuprofen [Motrin Ib] 600 mg PO Q6H PRN PRN Reason: Pain Discharge Medication List Levothyroxine Sodium [Levoxyl] 25 mcg PO DAILY 09/15/19 [History] SUMAtriptan SUCCINATE [Imitrex] 50 mg PO DAILY PRN 09/15/19 [History] Simethicone Chew [Mylicon Chew] 80 mg PO QID PRN #30 chew 09/15/19 [Rx] Cefuroxime Axetil [Ceftin] 500 mg PO BID 5 Days #10 tab 09/21/19 [Rx] Docusate [Colace] 100 mg PO BID #20 capsule 09/21/19 [Rx] HYDROcodone/APAP 5-325MG [[place] 5-325] 1 tab PO Q6HR PRN #10 tab 09/21/19 [Rx] Pantoprazole Sodium [Protonix] 40 mg PO DAILY #7 tablet.dr 09/21/19 [Rx] hydrALAZINE HCL [Apresoline] 25 mg PO TID #90 tab 09/21/19 [Rx] Follow up Appointment(s)/Referral(s): Juvenal Badillo MD [STAFF PHYSICIAN] - 2 Weeks (The office will call you with your appointment time and date.) Ashley Robins MD [STAFF PHYSICIAN] - 11/02/19 3:00 pm Megan Lewis DO [Primary Care Provider] - 09/26/19 11:20 am Yung Mckeon MD [STAFF PHYSICIAN] - 09/29/19 2:00 pm Patient Instructions/Handouts: Cefuroxime (By mouth), Hydrocodone/Acetaminophen (By mouth), Simethicone (By mouth), Laxative, Stool Softeners (By mouth), Hydralazine (By mouth), Pantoprazole (By mouth), Pancreatitis (DC), Surgical Site Infections (DC), Hypertension (DC), Laparoscopic Cholecystectomy (DC) Activity/Diet/Wound Care/Special Instructions: Heart healthy diet - no greasy foods Activity is limited till you see your doctor Showers are ok - no tub soaks Discharge Disposition: HOME SELF-CARE
== END 2019-09-21 14:48 | disposition home or self-care (01) | DRG 769 ==
LOC: EC 01:21 → 3SCARD 03:05 → 3NCARDOBS 05:13 → 5NMEDONC 09-17 00:26 → OBSVTOIN 09-17 10:13
PROVIDERS: ADMIT Hospitalist; ATTEND Hospitalist
PROC: 0F798ZZ Dilation of Common Bile Duct, Via Natural or Artificial Opening Endoscopic (ICD-10-PCS; 2019-09-18)
PROC: 0FC98ZZ Extirpation of Matter from Common Bile Duct, Via Natural or Artificial Opening Endoscopic (ICD-10-PCS; 2019-09-18)
PROC: 0FT44ZZ Resection of Gallbladder, Percutaneous Endoscopic Approach (ICD-10-PCS; principal; 2019-09-19 08:30)
DX: O26.63 Liver and biliary tract disorders in the puerperium (principal); K85.10 Biliary acute pancreatitis without necrosis or infection; K80.42 Calculus of bile duct with acute cholecystitis without obstruction; O99.354 Diseases of the nervous system complicating childbirth; O16.5 Unspecified maternal hypertension, complicating the puerperium; O86.20 Urinary tract infection following delivery, unspecified; I16.0 Hypertensive urgency; K83.8 Other specified diseases of biliary tract; K75.9 Inflammatory liver disease, unspecified; O99.63 Diseases of the digestive system complicating the puerperium; O99.285 Endocrine, nutritional and metabolic diseases complicating the puerperium; E03.9 Hypothyroidism, unspecified; E28.2 Polycystic ovarian syndrome; K59.00 Constipation, unspecified; O24.434 Gestational diabetes mellitus in the puerperium, insulin controlled; G43.909 Migraine, unspecified, not intractable, without status migrainosus; Z11.59 Encounter for screening for other viral diseases; Z90.89 Acquired absence of other organs; Z79.4 Long term (current) use of insulin; Z79.890 Hormone replacement therapy; Z79.899 Other long term (current) drug therapy; Z82.49 Family history of ischemic heart disease and other diseases of the circulatory system
CPT/HCPCS: 36415; 43277; 71045; 71275; 74174; 74181; 74330; 76705; 80048; 80053; 80076; 81001; 81003; 81025; 82150; 82550; 83690; 83735; 84484; 84550; 85025; 85379; 85610; 85730; 87086; 88304; 93005; 93306; 94640; 96361; 96374; 96375; 99291

== ENCOUNTER → 2020-07-25 | Outpatient (CLI) | payer BC, OTHER ==
--- NOTE | 2020-07-25 09:57 | US ---
EXAMINATION TYPE: US abdomen limited DATE OF EXAM: 07/25/2020 COMPARISON: NONE CLINICAL HISTORY: K43.9 Ventral hernia w/o obstruction. Evaluate for hernia, protrusion and hardness to the mid abdomen near umbilicus since of baby 7 months ago Sonographic evaluation of the mid abdomen to the left and right of umbilicus at the patient's region of concern. No change within the abdominal wall with valsalva visualized by ultrasound. No definite e vidence of abdominal wall hernia on the sonographic study. A CT may be helpful for further evaluation if clinically indicated. IMPRESSION: 1. No sonographic evidence for hernia of the anterior abdominal wall at the visualized portions. Real-time scanning was performed by the pattern fitter utilizing Valsalva and additional dynamic maneuve rs to assess for hernia. Images of the contralateral side were also acquired for direct comparison.
== END | disposition home or self-care (01) ==
LOC: RADUSWWP 09:02
PROVIDERS: ATTEND Family Medicine
DX: K43.9 Ventral hernia without obstruction or gangrene (principal)
CPT/HCPCS: 76705

== ENCOUNTER → 2020-08-10 | Outpatient (CLI) | payer BC ==
--- NOTE | 2020-08-11 13:55 | CT ---
EXAMINATION TYPE: CT abdomen w con DATE OF EXAM: 08/10/2020 COMPARISON: 09/15/2019 INDICATION: periumbilical pain DLP: 1065.8 mGycm, Automated exposure control for dose reduction was used. CONTRAST: 100 mL of Isovue 300. Study performed with Oral Contrast TECHNIQUE: Axial images were obtained from above the diaphragm to the pubic rami in the axial plane a t 5 mm thick sections. Reconstructed images are reviewed on the computer in the coronal plane. FINDINGS: Limited CT sections are obtained the lung bases. The lung bases are clear. CT ABDOMEN: Liver: Normal Spleen: Normal Pancreas: Normal Adrenal glands: The adrenal glands are normal. Gallbladder: Not identified. Kidneys: No masses are evident. No hydronephrosis is present. No cysts are present. Delayed images were obtained through the kidneys, which remain unremarkable. Aorta: Vascular calcification is within the aorta. Inferior vena cava: Normal. Loops of bowel within the abdomen and upper pelvis are normal. Few scattered diverticuli are present . There are loops of bowel which are incompletely distended or lack oral contrast limiting their ev aluation. Appendix: Normal as visualized. There is a very tiny mesenteric fat-containing periumbilical hernia with thickening of 0.8 cm. No loo ps of bowel are involved. IMPRESSIONS: 1. Normal CT abdomen. No suspicious abnormality to account for periumbilical pain. Note is made of a very tiny periumbilical hernia with mesenteric fat present previously.
== END | disposition home or self-care (01) ==
LOC: RADCTMAIN 08:59
PROVIDERS: ATTEND Family Medicine
DX: K42.9 Umbilical hernia without obstruction or gangrene (principal)
CPT/HCPCS: 74160; Q9967

== ENCOUNTER → 2020-09-24 | Outpatient (CLI) | payer BC ==
--- NOTE | 2020-09-25 11:30 | ECHOF ---
Referral Reason:I10 Hypertension MEASUREMENTS -------- HEIGHT: 170.2 cm WEIGHT: 84.4 kg BP: RVIDd: 3.0 cm (< 3.3) IVSd: 1.2 cm (0.6 - 1.1) LVIDd: 3.5 cm (3.9 - 5.3) LVPWd: 1.2 cm (0.6 - 1.1) IVSs: 1.4 cm LVIDs: 3.0 cm LVPWs: 1.1 cm LA Diam: 3.0 cm (2.7 - 3.8) Ao Diam: 3.7 cm (2.0 - 3.7) AV Cusp: 1.5 cm (1.5 - 2.6) MV EXCURSION: 11.453 mm (> 18.000) MV EF SLOPE: 57 mm/s (70 - 150) EPSS: 0.6 cm MV E Eliot: 0.65 m/s MV DecT: 238 ms MV A Eliot: 0.77 m/s MV E/A Ratio: 0.84 RAP: 5.00 mmHg RVSP: 12.60 mmHg FINDINGS -------- Sinus rhythm. This was a techncally difficult study with suboptimal views, , Lumason utilized for enhancement of im ages. The left ventricular size is normal. There is mild concentric left ventricular hypertrophy. Overa ll left ventricular systolic function is normal with, an EF between 60 - 65 %. The right ventricle is normal in size. The left atrial size is normal. The right atrial size is normal. 5.0mg OF Lumason UTLIZED: 2 OR MORE WALL SEGMENTS NOT VISUALIZED. The aortic valve is trileaflet, and appears structurally normal. No aortic stenosis or regurgitation. Mild mitral regurgitation is present. Mild tricuspid regurgitation present. Right ventricular systolic pressure is normal at < 35 mmHg. There is no pulmonic regurgitation present. Echo free space represents a pericardial fat pad. CONCLUSIONS -------- 1. This was a techncally difficult study with suboptimal views, , Lumason utilized for enhancement of images. 2. The left ventricular size is normal. 3. There is mild concentric left ventricular hypertrophy. 4. Overall left ventricular systolic function is normal with, an EF between 60 - 65 %. 5. The right ventricle is normal in size. 6. The left atrial size is normal. 7. The right atrial size is normal. 8. 5.0mg OF Lumason UTLIZED: 2 OR MORE WALL SEGMENTS NOT VISUALIZED. 9. The aortic valve is trileaflet, and appears structurally normal. No aortic stenosis or regurgitati on. 10. Mild mitral regurgitation is present. 11. Mild tricuspid regurgitation present. 12. Echo free space represents a pericardial fat pad. CUT OUT OPERATOR: Sarah Greenberg RDCS
== END | disposition home or self-care (01) ==
LOC: RADECHMAIN 14:58
PROVIDERS: ATTEND Family Medicine
DX: I08.1 Rheumatic disorders of both mitral and tricuspid valves (principal)
CPT/HCPCS: 93306; Q9950

== ENCOUNTER → 2020-10-19 | Outpatient (CLI) | payer BC ==
--- NOTE | 2020-10-19 09:48 | USB ---
Reason for exam: additional evaluation requested from abnormal screening. Physical Findings: Nurse Summary: 0.3cm round fixed palpable noted and marked by nurse (nurse johanna). US Breast RT Right complete breast ultrasound includes all four quadrants, the retroareolar region and axilla. Finding demonstrates a 4 x 3 x 3mm oval, hypoechoic, superficial lesion at 12 o'clock BB. These results were verbally communicated with the patient and result sheet given to the patient on 10/19/20. ASSESSMENT: Probably benign, BI-RAD 3 RECOMMENDATION: Ultrasound of the right breast in 3 months. (3-6 months)
== END | disposition home or self-care (01) ==
LOC: RADUSWWP 08:54
PROVIDERS: ATTEND Family Medicine
DX: N64.89 Other specified disorders of breast (principal)

== ENCOUNTER → 2021-03-06 | Outpatient (CLI) | payer BC ==
--- NOTE | 2021-03-07 09:16 | USB ---
Reason for exam: clinical finding. History: Took hormonal contraceptives for 8 years. Physical Findings: Nurse Summary: 0.3cm hard, fixed lesion at 11 o'clock (nurse johanna). US Breast Limited RT Technologist: Leila Cabrera Right limited breast ultrasound including focal area of concern, retroareolar and axilla demonstrates a 0.4 x 0.3 x 0.3cm and 0.2 x 0.4 x 0.2cm superficial lesion at 12 o'clock. Densely shadowing echogenic foci at the palpable site. Scanned 11-1 o'clock. These results were verbally communicated with the patient and result sheet given to the patient on 03/06/21. ASSESSMENT: Incomplete: need additional imaging evaluation, BI-RAD 0 RECOMMENDATION: Special view mammogram of the right breast.
--- NOTE | 2021-03-07 09:18 | MM ---
Reason for exam: clinical finding. History: Took hormonal contraceptives for 8 years. MG 3D Diag Mammo W/Cad RT CC, MLO, and XCCL view(s) were taken of the right breast. Prior study comparison: October 19, 2020, right breast US breast RT. The breast tissue is heterogeneously dense. This may lower the sensitivity of mammography. Two tiny benign oil cysts are confirmed near the palpable marker. These results were verbally communicated with the patient and result sheet given to the patient on 03/06/21. ASSESSMENT: Benign, BI-RAD 2 RECOMMENDATION: Routine screening mammogram of both breasts at age 39. (unless clinical indication to start sooner)
== END | disposition home or self-care (01) ==
LOC: RADUSWWP 14:48
PROVIDERS: ATTEND Family Medicine
DX: R92.8 Other abnormal and inconclusive findings on diagnostic imaging of breast (principal)
CPT/HCPCS: 77061; 77065

== ENCOUNTER → 2021-07-04 | Outpatient (CLI) | payer BC ==
--- NOTE | 2021-07-04 13:37 | CT ---
EXAMINATION TYPE: CT abdomen pelvis w con DATE OF EXAM: 07/04/2021 COMPARISON: 08/10/2020 HISTORY: LLQ pain CT DLP: 1612.1 mGycm CONTRAST: CT scan of the abdomen and pelvis is performed with Oral Contrast and with IV Contrast, patient injec lata with 100 mL of Isovue 300. FINDINGS: LUNG BASES-: No visible nodule. No infiltrate. LIVER/GB: The gallbladder is surgically absent. No space occupying hepatic lesion. Biliary tree is of normal caliber. PANCREAS: No inflammation. No distinct mass. SPLEEN: No splenic enlargement. No lesion seen. ADRENALS: No nodule. No thickening. KIDNEYS/BLADDER: No hydronephrosis. No nephrolithiasis. No distinct renal mass. Urinary bladder g rossly unremarkable. BOWEL: Normal appendix. Normal bowel caliber. No inflammation. Sigmoid diverticulosis without diver ticulitis. GENITAL ORGANS: No gross abnormality. LYMPH NODES: No greater than 1cm abdominal or pelvic lymph nodes are appreciated. AORTA: No significant abnormality. OSSEOUS STRUCTURES: No significant abnormality is seen. OTHER: No significant additional abnormality is seen. IMPRESSION: 1. No significant abnormality to the patient's symptoms.
== END | disposition home or self-care (01) ==
LOC: RADCTMAIN 11:25
PROVIDERS: ATTEND Family Medicine
DX: R10.32 Left lower quadrant pain (principal)
CPT/HCPCS: 74177; Q9967

== ENCOUNTER → 2022-01-06 | Outpatient (CLI) | payer BC ==
[2022-01-06 16:11] LABS: Chol/HDL Ratio 4.81 Ratio; LDL Cholesterol,Calculated 130.2 mg/dL (0.0-131.0)
[2022-01-06 16:19] LABS: ALT 41 U/L (8-44); AST 29 U/L (13-35); African American GFR (CKD) 98.3 (60.0-200.0); Albumin 5.1 g/dL (3.8-4.9); Alkaline Phosphatase 99 U/L (41-126); BUN/Creat Ratio 14.14 Ratio (12.00-20.00); Blood Urea Nitrogen 12.7 mg/dL (9.0-27.0); Calcium 10.6 mg/dL (8.7-10.3); Chloride 102 mmol/L (96-109); Globulin 2.7 g/dL (1.6-3.3); Glucose 131 mg/dL (70-110); Non-African American GFR(CKD) 84.8 (60.0-200.0); Potassium 4.8 mmol/L (3.5-5.5); Sodium 143 mmol/L (135-145); Total Protein 7.8 g/dL (6.2-8.2)
[2022-01-06 23:49] LABS: Urine Creatinine 97.5 mg/dL (28.0-217.0)
== END | disposition home or self-care (01) ==
LOC: LABWHC1 09:05
PROVIDERS: ATTEND Internal Medicine Endocrinology, Diabetes & Metabolism
DX: E11.9 Type 2 diabetes mellitus without complications (principal)
CPT/HCPCS: 36415; 80053; 80061; 82043; 82570; 83036; 84443

== ENCOUNTER → 2022-03-13 | Outpatient (CLI) | payer BC ==
[2022-03-13 15:56] LABS: Creatinine 24 Hour,Urine 1291.1 mg/24hr (800.0-1800.0)
[2022-03-14 10:05] LABS: Total Protein 24 Hour,Urine 218.6 mg/24Hr (0.0-165.0); Total Volume 24 Hour,Urine 1375 mL
== END | disposition home or self-care (01) ==
LOC: LABWHC1 10:22
PROVIDERS: ATTEND Internal Medicine Endocrinology, Diabetes & Metabolism
DX: E78.2 Mixed hyperlipidemia (principal); E24.8 Other Cushing's syndrome; E06.3 Autoimmune thyroiditis; E55.9 Vitamin D deficiency, unspecified; K71.9 Toxic liver disease, unspecified; E86.0 Dehydration; D51.9 Vitamin B12 deficiency anemia, unspecified; E28.2 Polycystic ovarian syndrome; R73.02 Impaired glucose tolerance (oral)
CPT/HCPCS: 36415; 81050; 82530; 82575; 84156

== ENCOUNTER → 2022-03-17 | Outpatient (CLI) | payer BC | END | disposition home or self-care (01) | LOC: LABWHC1 08:16 | PROVIDERS: ATTEND Internal Medicine Endocrinology, Diabetes & Metabolism | DX: E24.8 Other Cushing's syndrome (principal) | CPT/HCPCS: 36415; 82024; 82533; 82626 ==

== ENCOUNTER → 2022-03-31 | Outpatient (CLI) | payer BC | END | disposition home or self-care (01) | LOC: LABWHC1 07:49 | PROVIDERS: ATTEND Internal Medicine Endocrinology, Diabetes & Metabolism | DX: E11.65 Type 2 diabetes mellitus with hyperglycemia (principal) | CPT/HCPCS: 36415; 82947; 82950 ==

== ENCOUNTER → 2022-05-30 | Outpatient (CLI) | payer BC ==
[2022-05-26 13:39] LABS: Cortisol, Urine Free by LC-MS 54.4 ug/L; Free Cortisol 24 Hour,Urine 85.7 ug/day (<45.0)
--- NOTE | 2022-05-31 17:17 | MR ---
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 COMPARISON: None TECHNIQUE: Multi planar, multi sequence imaging was performed through the brain. Specialized thin s equences were obtained through the pituitary gland/sella turcica. Pre-and post gadolinium sequences were obtained. IV Contrast: 10 cc Gadavist FINDINGS: There is an area of delayed heterogenous enhancement involving the inferior aspect of the pituitary g land measuring 7 x 2 x 6 mm. The modi-white junctions, ventricular system, and basal cisterns appear unremarkable. The pituitary stalk is not deviated. The intracranial arterial flow voids are intact. IMPRESSION: Pituitary microadenoma. Neurosurgical consultation recommended.
== END | disposition home or self-care (01) ==
LOC: RADMRIMAIN 13:09
PROVIDERS: ATTEND Internal Medicine Endocrinology, Diabetes & Metabolism
DX: D35.2 Benign neoplasm of pituitary gland (principal)
CPT/HCPCS: 82530; 70553; A9585

== ENCOUNTER 2022-11-07 14:09 | Inpatient (IN) | payer BC ==
--- NOTE | 2022-11-07 14:47 | ED ---
Abdominal Pain HPI - General Source: patient Mode of arrival: ambulatory Limitations: no limitations - History of Present Illness Complaint: abdominal pain Location: [facility] <Lokesh Jamison - Last Filed: 11/07/22 14:35> <Ganga Contreras - Last Filed: 11/07/22 21:23> - General Chief Complaint: Abdominal Pain Stated Complaint: post op comp Time Seen by Provider: 11/07/22 14:23 - History of Present Illness Initial Comments: Patient is a 32-year-old female with a past medical history of pituitary tumor and Alexandria's disease. Patient reports that she had a surgery to remove her pituitary tumor on Oct 15. Since the patient reports multiple bouts of diarrhea and abdominal pain.Pt reports that abd pain worsened over the last week. Patient reports that she also had a incision in her right lower quadrant completed as part of the surgery. Patient has contacted her neurosurgeon and PCP who have prescribed her antidiarrheal and antinausea medications with limited relief. Patient denies headaches, fevers, chills, patient denies any confusion, and muscle aches. (Lokesh Jamison) - Related Data Home Medications Medication Instructions Recorded Confirmed Levothyroxine Sodium [Levoxyl] 25 mcg PO DAILY 09/15/19 09/15/19 SUMAtriptan succinate [Imitrex] 50 mg PO DAILY PRN 09/15/19 09/15/19 Previous Rx's Medication Instructions Recorded Simethicone Chew [Mylicon Chew] 80 mg PO QID PRN #30 chew 09/15/19 Docusate [Colace] 100 mg PO BID #20 capsule 09/21/19 HYDROcodone/APAP 5-325MG [[place] 1 tab PO Q6HR PRN #10 tab 09/21/19 5-325] Pantoprazole Sodium [Protonix] 40 mg PO DAILY #7 tablet. 09/21/19 cefUROXime axetiL [Ceftin] 500 mg PO BID 5 Days #10 tab 09/21/19 hydrALAZINE HCL [Apresoline] 25 mg PO TID #90 tab 09/21/19 Allergies Allergy/AdvReac Type Severity Reaction Status Date / Time No Known Allergies Allergy Verified 11/07/22 14:19 Review of Systems ROS Other: All systems not noted in ROS Statement are negative. <Lokesh Jamison - Last Filed: 11/07/22 14:35> ROS Other: All systems not noted in ROS Statement are negative. <Ganga Contreras - Last Filed: 11/07/22 21:23> ROS Statement: Those systems with pertinent positive or pertinent negative responses have been documented in the HPI. Past Medical History Past Medical History: Thyroid Disorder Additional Past Medical History / Comment(s): PCOS History of Any Multi-Drug Resistant Organisms: None Reported Past Surgical History: Adenoidectomy, Orthopedic Surgery Additional Past Surgical History / Comment(s): Two knee surgeries, pituitary tumor removal Past Anesthesia/Blood Transfusion Reactions: No Reported Reaction Past Psychological History: No Psychological Hx Reported Smoking Status: Never smoker Past Alcohol Use History: Occasional Past Drug Use History: None Reported - Past Family History Father History Unknown: Yes Family Medical History: AFIB <Lokesh Jamison - Last Filed: 11/07/22 14:35> General Exam Limitations: no limitations General appearance: anxious, in distress Eye exam: Present: normal appearance Pupils: Present: normal accommodation ENT exam: Present: normal exam Neck exam: Present: normal inspection Respiratory exam: Present: normal lung sounds bilaterally GI/Abdominal exam: Present: distended, guarding <Lokesh Jamison - Last Filed: 11/07/22 14:35> Course Vital Signs 11/07/22 11/07/22 14:14 19:42 Temperature 98.7 F Pulse Rate 104 H 93 Respiratory 24 20 Rate Blood Pressure 119/83 121/98 O2 Sat by Pulse 97 97 Oximetry Medical Decision Making <BernardorodolfononaLokesh - Last Filed: 11/07/22 14:35> - Lab Data Result diagrams: 11/07/22 14:56 11/07/22 14:56 <Ganga Contreras - Last Filed: 11/07/22 21:23> - Medical Decision Making Was pt. sent in by a medical professional or institution (, PA, [facility], urgent care, hospital, or long term...) When possible be specific @ -[No] Did you speak to anyone other than the patient for history (EMS, parent, family, police, friend...)? What history was obtained from this source @ -[No] Did you review nursing and triage notes (agree or disagree)? Why? @ -[I reviewed and agree with nursing and triage notes] Were old charts reviewed (outside hosp., previous admission, EMS record, old EKG, old radiological studies, urgent care reports/EKG's, long term records)? Report findings @ -[No old charts were reviewed] Differential Diagnosis (chest pain, altered mental status, abdominal pain women, abdominal pain men, vaginal bleeding, weakness, fever, dyspnea, syncope, headache, dizziness, GI bleed, back pain, seizure, CVA, palpatations, mental health, musculoskeletal)? @ EKG interpreted by me (3pts min.). @ -none X-rays interpreted by me (1pt min.). @ -none CT interpreted by me (1pt min.). @ -radiology U/S interpreted by me (1pt. min.). @ -none What testing was considered but not performed or refused? (CT, X-rays, U/S, labs)? Why? @ -nonr What meds were considered but not given or refused? Why? @ -none Did you discuss the management of the patient with other professionals ( professionals i.e. , PA, [employer], lab, RT, psych nurse, social work therapist, solar sales representative, teacher, budget officer, casework manager)? Give summary @ -Yes Dr. CONTRERAS Was smoking cessation discussed for >3mins.? @ -I discussed smoking cessation for greater than 3 minutes. The risk of smoking were discussed with the patient including but not limited to risks of cancer, stroke, coronary artery disease and COPD. Also discussed with patient were multiple methods of quitting smoking. Lastly we discussed the financial cost of smoking. Was critical care preformed (if so, how long)? @ -no Were there social determinants of health that impacted care today? How? (Homelessness, low income, unemployed, alcoholism, drug addiction, transportation, low edu. Level, literacy, decrease access to med. care, [facility], rehab)? @ -no Was there de-escalation of care discussed even if they declined (Discuss DNR or withdrawal of care, Hospice)? DNR status @ -no What co-morbidities impacted this encounter? (DM, HTN, Smoking, COPD, CAD, Cancer, CVA, ARF, Chemo, Hep., AIDS, mental health diagnosis, sleep apnea, morbid obesity)? @ -No Was patient admitted / discharged? Hospital course, mention meds given and route, prescriptions, significant lab abnormalities, going to OR and other pertinent info. @ - Transferring care over to attending, Pt has LLQ guarding as well as Nausea and diarrhea, Pt given 1000 ml Saline as well as 4mg Zofran IV, patient pending lab work, CT abdomen pending, Undiagnosed new problem with uncertain prognosis? @ -No Drug Therapy requiring intensive monitoring for toxicity (Heparin, Nitro, Insulin, Cardizem)? @ -[No] Were any procedures done? @ -[No] Diagnosis/symptom? @ -[default] Acute, or Chronic, or Acute on Chronic? @ -Chronic Uncomplicated (without systemic symptoms) or Complicated (systemic symptoms)? @ -Uncomplicated Side effects of treatment? @ -No Exacerbation, Progression, or Severe Exacerbation? @ -No Poses a threat to life or bodily function? How? (Chest pain, [place], [place], pneumonia, PE, COPD, DKA, ARF, appy, cholecystitis, CVA, Diverticulitis, Homicidal, Suicidal, threat to staff... and all critical care pts) @ -[No (Lokesh Jamison) Was patient admitted / discharged? Hospital course, mention meds given and route, prescriptions, significant lab abnormalities, going to OR and other pertinent info. @ -I will back into reevaluate the patient after the CAT scan. CAT scan did not show any acute abnormality was interpreted by myself. Patient now had a headache which she's been having on and off since the surgery. 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 Patient got some Ativan for the anxiety. Patient also got Lomotil for the diarrhea. Patient did not take her hydrocortisone yesterday psychiatric 100 mg of hydrocortisone IV. An patient was not comfortable going home so admitted the patient to [facility] hospitalist whom I spoke with and they were in agreement Diagnosis/symptom? @ -Diarrhea Acute, or Chronic, or Acute on Chronic? @ -Acute Uncomplicated (without systemic symptoms) or Complicated (systemic symptoms)? @ -Uncomplicated Diagnosis/symptom? @ -Urinary tract infection Acute, or Chronic, or Acute on Chronic? @ -Acute Uncomplicated (without systemic symptoms) or Complicated (systemic smptoms) @ -Uncomplicated Side effects ofteatnt? @ -[none] Diagnosis/symptom? @ -Headache Acute, or Chronic, or Acute on Chronic? @ -Acute Uncomplicated (without systemic symptoms) or Complicated (systemic symptoms)? @ -Uncomplicated Side effects o reaent? (Ganga Contreras) - Lab Data Lab Results 11/07/22 11/07/22 11/07/22 Range/Units 14:56 14:56 14:56 WBC 10.0 (3.8-10.6) k/uL RBC 4.80 (3.80-5.40) m/uL Hgb 13.7 (11.4-16.0) gm/dL Hct 42.1 (34.0-46.0) % MCV 87.8 (80.0-100.0) fL MCH 28.6 (25.0-35.0) pg MCHC 32.5 (31.0-37.0) g/dL RDW 13.4 (11.5-15.5) % Plt Count 363 (150-450) k/uL MPV 7.7 Neutrophils % 61 % Lymphocytes % 30 % Monocytes % 7 % Eosinophils % 1 % Basophils % 0 % Neutrophils # 6.1 (1.3-7.7) k/uL Lymphocytes # 3.0 (1.0-4.8) k/uL Monocytes # 0.7 (0-1.0) k/uL Eosinophils # 0.1 (0-0.7) k/uL Basophils # 0.0 (0-0.2) k/uL Sodium 144 (137-145) mmol/L Potassium 3.3 L (3.5-5.1) mmol/L Chloride 109 H (98-107) mmol/L Carbon Dioxide 23 (22-30) mmol/L Anion Gap 12 mmol/L BUN 4 L (7-17) mg/dL Creatinine 0.73 (0.52-1.04) mg/dL Est GFR (CKD-EPI)AfAm >90 (>60 ml/min/1.73 sqM) Est GFR (CKD-EPI)NonAf >90 (>60 ml/min/1.73 sqM) Glucose 100 H (74-99) mg/dL Lactic Ac Sepsis Rflx Plasma Lactic Acid Vidal (0.7-2.0) mmol/L Calcium 9.9 (8.4-10.2) mg/dL Total Bilirubin 0.7 (0.2-1.3) mg/dL AST 76 H (14-36) U/L ALT 74 H (4-34) U/L Alkaline Phosphatase 81 (38-126) U/L Total Protein 7.2 (6.3-8.2) g/dL Albumin 4.4 (3.5-5.0) g/dL Amylase 58 (30-110) U/L Lipase 50 (23-300) U/L HCG, Quant <2.4 mIU/mL Urine Color Colorless Urine Appearance Cloudy H (Clear) Urine pH 6.5 (5.0-8.0) Ur Specific [place] 1.004 (1.001-1.035) Urine Protein Negative (Negative) Urine Glucose (UA) Negative (Negative) Urine Ketones Trace H (Negative) Urine Blood Negative (Negative) Urine Nitrite Negative (Negative) Urine Bilirubin Negative (Negative) Urine Urobilinogen <2.0 (<2.0) mg/dL Ur Leukocyte Esterase Large H (Negative) Urine RBC 2 (0-5) /hpf Urine WBC 23 H (0-5) /hpf Ur Squamous Epith Cells 2 (0-4) /hpf Urine Bacteria Many H (None) /hpf 11/07/22 11/07/22 Range/Units 14:56 16:09 WBC (3.8-10.6) k/uL RBC (3.80-5.40) m/uL Hgb (11.4-16.0) gm/dL Hct (34.0-46.0) % MCV (80.0-100.0) fL MCH (25.0-35.0) pg MCHC (31.0-37.0) g/dL RDW (11.5-15.5) % Plt Count (150-450) k/uL MPV Neutrophils % % Lymphocytes % % Monocytes % % Eosinophils % % Basophils % % Neutrophils # (1.3-7.7) k/uL Lymphocytes # (1.0-4.8) k/uL Monocytes # (0-1.0) k/uL Eosinophils # (0-0.7) k/uL Basophils # (0-0.2) k/uL Sodium (137-145) mmol/L Potassium (3.5-5.1) mmol/L Chloride (98-107) mmol/L Carbon Dioxide (22-30) mmol/L Anion Gap mmol/L BUN (7-17) mg/dL Creatinine (0.52-1.04) mg/dL Est GFR (CKD-EPI)AfAm (>60 ml/min/1.73 sqM) Est GFR (CKD-EPI)NonAf (>60 ml/min/1.73 sqM) Glucose (74-99) mg/dL Lactic Ac Sepsis Rflx Y Plasma Lactic Acid Vidal 2.5 H* (0.7-2.0) mmol/L Calcium (8.4-10.2) mg/dL Total Bilirubin (0.2-1.3) mg/dL AST (14-36) U/L ALT (4-34) U/L Alkaline Phosphatase (38-126) U/L Total Protein (6.3-8.2) g/dL Albumin (3.5-5.0) g/dL Amylase (30-110) U/L Lipase (23-300) U/L HCG, Quant mIU/mL Urine Color Urine Appearance (Clear) Urine pH (5.0-8.0) Ur Specific [place] (1.001-1.035) Urine Protein (Negative) Urine Glucose (UA) (Negative) Urine Ketones (Negative) Urine Blood (Negative) Urine Nitrite (Negative) Urine Bilirubin (Negative) Urine Urobilinogen (<2.0) mg/dL Ur Leukocyte Esterase (Negative) Urine RBC (0-5) /hpf Urine WBC (0-5) /hpf Ur Squamous Epith Cells (0-4) /hpf Urine Bacteria (None) /hpf Disposition Is patient prescribed a controlled substance at d/c from ED?: No <Lokesh Jamison - Last Filed: 11/07/22 14:35> Time of Disposition: 21:21 <Ganga Contreras - Last Filed: 11/07/22 21:23> Clinical Impression: Diarrhea, Urinary tract infection, Headache, Nia syndrome Disposition: ADMITTED IP TO THIS HOSP Condition: Undetermined Referrals: None,Stated [Primary Care Provider] - 1-2 days
[2022-11-07] MEDS ORDERED: ONDANSETRON 4 MG/2 ML VIAL IVP STA (14:59)
[2022-11-07] MEDS ORDERED: SODIUM CHLORIDE 0.9% 1,000 ML IV STA (15:01)
[2022-11-07 15:31] LABS: Basophils % (A) 0 %; Eosinophils # (A) 0.1 k/uL (0-0.7); Eosinophils % (A) 1 %; HCT 42.1 % (34.0-46.0); HGB 13.7 gm/dL (11.4-16.0); Lymphocytes % (A) 30 %; MCH 28.6 pg (25.0-35.0); MCHC 32.5 g/dL (31.0-37.0); MCV 87.8 fL (80.0-100.0); Mean Platelet Volume 7.7; Monocytes # (A) 0.7 k/uL (0-1.0); Monocytes % (A) 7 %; Neutrophils # (A) 6.1 k/uL (1.3-7.7); Neutrophils % (A) 61 %; Platelet Count 363 k/uL (150-450); RDW 13.4 % (11.5-15.5)
[2022-11-07 15:49] LABS: Appearance,Urine Cloudy (Clear); Bacteria,Urine Many /hpf; Bilirubin,Urine Negative (Negative); Blood,Urine Negative (Negative); Color,Urine Colorless; Glucose,Urine (UA) Negative (Negative); Ketones,Urine Trace (Negative); Leukocyte Esterase,Urine Large (Negative); Nitrite,Urine Negative (Negative); PH, Urine 6.5 (5.0-8.0); Protein,Urine Negative (Negative); RBC,Urine 2 /hpf (0-5); Specific Gravity,Urine 1.004 (1.001-1.035); Squamous Epithelial Cell,Urine 2 /hpf (0-4); Urobilinogen,Urine <2.0 mg/dL (<2.0); WBC,Urine 23 /hpf (0-5)
[2022-11-07] MEDS ORDERED: IOPAMIDOL CONTRAST (ORAL USE) VIAL PO PRN ×2 (15:52→15:58)
[2022-11-07 15:59] LABS: ALT 74 U/L (4-34); AST 76 U/L (14-36); African American GFR (CKD) >90 (>60 ml/min/1.73 sqM); Albumin 4.4 g/dL (3.5-5.0); Alkaline Phosphatase 81 U/L (38-126); Amylase 58 U/L (30-110); Anion Gap 12 mmol/L; Blood Urea Nitrogen 4 mg/dL (7-17); Calcium 9.9 mg/dL (8.4-10.2); Carbon Dioxide 23 mmol/L (22-30); Chloride 109 mmol/L (98-107); Glucose 100 mg/dL (74-99); Lipase 50 U/L (23-300); Non-African American GFR(CKD) >90 (>60 ml/min/1.73 sqM); Potassium 3.3 mmol/L (3.5-5.1); Sodium 144 mmol/L (137-145); Total Bilirubin 0.7 mg/dL (0.2-1.3); Total Protein 7.2 g/dL (6.3-8.2)
[2022-11-07] MEDS ORDERED: cefTRIAXone IN SWFI 1,000 MG/10 ML SYRINGE IVP STA (16:15)
[2022-11-07 16:31] LABS: HCG,Quantitative Serum <2.4 mIU/mL
[2022-11-07] MEDS ORDERED: ACETAMINOPHEN TAB 500 MG TAB PO STA (19:35)
--- NOTE | 2022-11-07 20:00 | CT ---
EXAMINATION TYPE: CT abdomen pelvis w con DATE OF EXAM: 11/07/2022 COMPARISON: 07/04/2021 INDICATION: s/p pituitary tumor removal 10/15/22. Pt c/o abd pain with nausea ,vomiting and diarrhea x 2 weeks. DLP: 1629.6 mGycm, Automated exposure control for dose reduction was used. CONTRAST: 100 ml mL of Isovue 300. Study performed with Oral Contrast TECHNIQUE: Axial images were obtained from above the diaphragm to the pubic rami in the axial plane a t 5 mm thick sections. Reconstructed images are reviewed on the computer in the coronal plane. FINDINGS: Limited CT sections are obtained the lung bases. The lung bases are clear. CT ABDOMEN: Liver: Normal Spleen: Normal Pancreas: Normal Adrenal glands: The adrenal glands are normal. Gallbladder: Absent Kidneys: No masses are evident. No hydronephrosis is present. No cysts are present. Delayed images were obtained through the kidneys, which remain unremarkable. Aorta: Vascular calcification is within the aorta. Inferior vena cava: Normal. CT PELVIS: Some subcutaneous increased densities along the right lower quadrant. Correlate for trauma or cellulitis. Loops of bowel within the abdomen and pelvis are normal. No dilated loops of bowel are evident. No ob struction is evident. Oral contrast extends to the distal ileum. Colon has a few diverticuli without acute diverticulitis. There are loops of bowel which are incompletely distended or lack oral contr ast limiting their evaluation. Appendix: Normal as visualized. Urinary bladder: Normal. Genitourinary structures: Uterus is normal. Adnexa are unremarkable. Osseous structures: No suspicious lytic or sclerotic lesions. IMPRESSION: 1. No acute intra-abdominal abnormality. 2. Subcutaneous contusion or infection right lower quadrant
[2022-11-07] MEDS ORDERED: HYDROCORTISONE SUCCINATE 100 MG/2 ML VIAL IV STA (21:05)
[2022-11-07] MEDS ORDERED: HYDROmorphone 0.5 MG/0.5 ML SYRINGE IVP STA (21:06)
[2022-11-07] MEDS ORDERED: LORazepam 2 MG/ML INJ IV STA (21:06)
[2022-11-07] MEDS ORDERED: SODIUM CHLORIDE 0.9% 500 ML 500 ML IV ONE (21:06)
[2022-11-07] MEDS ORDERED: DIPHENOX-ATROP 2.5-0.025 MG 1 EACH TAB PO STA (21:06)
[2022-11-07] MEDS ORDERED: SODIUM CHLORIDE 0.9% 1,000 ML IV ONE (21:21)
[2022-11-07] MEDS ORDERED: HYDROcodone/APAP 5-325MG 1 EACH TAB PO PRN (21:22)
[2022-11-07] MEDS ORDERED: DIPHENOX-ATROP 2.5-0.025 MG 1 EACH TAB PO PRN (21:22)
[2022-11-07] MEDS: SODIUM CHLORIDE 0.9% 1,000 ML IV SCH (21:27)
[2022-11-07] MEDS ORDERED: ONDANSETRON 4 MG/2 ML VIAL IVP PRN (23:48)
[2022-11-08] MEDS: METOCLOPRAMIDE 5 MG/ML 2 ML VIAL IVP PRN ×2 (00:07→08:36)
[2022-11-08] MEDS ORDERED: ACETAMINOPHEN TAB 325 MG TAB PO PRN (05:07)
[2022-11-08] MEDS ORDERED: SUMAtriptan succinate 50 MG TAB PO PRN (05:07)
[2022-11-08 06:03] LABS: Glucose,Whole Blood 105 mg/dL (70-110)
[2022-11-08] MEDS ORDERED: HYDROmorphone 0.5 MG/0.5 ML SYRINGE IVP STA (06:08)
[2022-11-08] MEDS: LEVOTHYROXINE 25 MCG TAB PO SCH (06:20)
[2022-11-08] MEDS: SODIUM CHLORIDE 0.9% 1,000 ML IV SCH ×3 (07:53→21:08)
[2022-11-08 08:00] LABS: Basophils % (A) 0 %; Eosinophils % (A) 0 %; HCT 35.3 % (34.0-46.0); HGB 11.5 gm/dL (11.4-16.0); Lymphocytes # (A) 1.9 k/uL (1.0-4.8); Lymphocytes % (A) 23 %; MCH 29.2 pg (25.0-35.0); MCHC 32.6 g/dL (31.0-37.0); MCV 89.5 fL (80.0-100.0); Mean Platelet Volume 8.6; Monocytes # (A) 0.5 k/uL (0-1.0); Monocytes % (A) 6 %; Neutrophils # (A) 5.7 k/uL (1.3-7.7); Neutrophils % (A) 69 %; Platelet Count 306 k/uL (150-450); RBC 3.95 m/uL (3.80-5.40); RDW 13.7 % (11.5-15.5); WBC 8.3 k/uL (3.8-10.6)
[2022-11-08] MEDS: ENOXAPARIN 40 MG/0.4 ML SYRINGE SQ SCH (08:36)
[2022-11-08] MEDS: HYDROCORTISONE 20 MG TAB PO SCH (08:37)
[2022-11-08] MEDS: PRAVASTATIN SODIUM 40 MG TAB PO SCH (08:37)
[2022-11-08] MEDS: SODIUM CHLORIDE 0.65% NASAL SPRAY 44 ML BTL NASAL SCH ×2 (08:39→21:04)
[2022-11-08 08:53] LABS: ALT 62 U/L (4-34); AST 46 U/L (14-36); African American GFR (CKD) >90 (>60 ml/min/1.73 sqM); Albumin 3.4 g/dL (3.5-5.0); Albumin/Globulin Ratio 1.5; Blood Urea Nitrogen 3 mg/dL (7-17); Carbon Dioxide 20 mmol/L (22-30); Globulin 2.3 g/dL; Glucose 90 mg/dL (74-99); Non-African American GFR(CKD) >90 (>60 ml/min/1.73 sqM); Potassium 3.9 mmol/L (3.5-5.1); Sodium 142 mmol/L (137-145); Total Bilirubin 0.5 mg/dL (0.2-1.3); Total Protein 5.7 g/dL (6.3-8.2)
[2022-11-08 08:55] LABS: Alkaline Phosphatase 66 U/L (38-126); Anion Gap 9 mmol/L; Calcium 8.6 mg/dL (8.4-10.2); Chloride 113 mmol/L (98-107)
[2022-11-08] MEDS ORDERED: NALOXONE 0.4 MG/ML 1 ML VIAL IV PRN (09:26)
[2022-11-08 11:18] LABS: Glucose,Whole Blood 122 mg/dL (70-110)
[2022-11-08] MEDS: LACTOBACILLUS ACIDOPHILUS/PECT 1 EACH CAPSULE PO SCH ×4 (11:45→21:04)
[2022-11-08 11:56] VITALS: BMI 29.7
[2022-11-08] MEDS: HYDROCORTISONE 10 MG TAB PO SCH ×2 (12:00→17:05)
--- NOTE | 2022-11-08 13:01 | P.HPIM ---
History of Present Illness H&P Date: 11/08/22 Chief Complaint: Diarrhea abdominal pain * 32-year-old lady with past medical history significant for gallstone pancreatitis status post cholecystectomy,pituitary microadenoma, [place]ia disease, thyroid disorder, history of PCOS presented to the emergency department with ongoing abdominal pain and diarrhea ongoing since her surgery which was done on 10/15/2022 * Patient states few days after her acute treated tumor surgery she started to have loose stool. She reached out to her provider at [facility] who wanted her to follow-up with primary care physician * Outpatient follow-up including testing for rotavirus which was negative * Upon admission patient was noted to have a CBC done which was essentially normal. Basic metabolic panel did show sodium of 142 potassium 3.9 chloride of 113 CO2 of 20 creatinine within normal limits liver profile showed AST of 45-year-old lady of 62 alkaline phosphatase within normal limits * She'll continue to have ongoing diarrhea for which he will be tested for C. diff. * CT abdomen and pelvis obtained was negative for colitis for acute intra- abdominal process REVIEW OF SYSTEMS: CONSTITUTIONAL: No fever, no malaise, no fatigue. HEENT: No recent visual problems or hearing problems. Denied any sore throat. CARDIOVASCULAR: No chest pain, orthopnea, PND, no palpitations, no syncope. PULMONARY: No shortness of breath, no cough, no hemoptysis. GASTROINTESTINAL: Abdominal cramping, diarrhea NEUROLOGICAL: No headaches, no weakness, no numbness. HEMATOLOGICAL: Denies any bleeding or petechiae. GENITOURINARY: Denies any burning micturition, frequency, or urgency. MUSCULOSKELETAL/RHEUMATOLOGICAL: Denies any joint pain, swelling, or any muscle pain. ENDOCRINE: Denies any polyuria or polydipsia. The rest of the 14-point review of systems is negative. PHYSICAL EXAMINATION: GENERAL: The patient is alert and oriented x3, not in any acute distress. Well developed, well nourished. HEENT: Pupils are round and equally reacting to light. EOMI. No scleral icterus. No conjunctival pallor. Normocephalic, atraumatic. No pharyngeal erythema. No th yromegaly. CARDIOVASCULAR: S1 and S2 present. No murmurs, rubs, or gallops. PULMONARY: Chest is clear to auscultation, no wheezing or crackles. ABDOMEN: Soft, nontender, nondistended, normoactive bowel sounds. No palpable organomegaly. MUSCULOSKELETAL: No joint swelling or deformity. EXTREMITIES: No cyanosis, clubbing, or pedal edema. NEUROLOGICAL: Gross neurological examination did not reveal any focal deficits. SKIN: No rashes. Past Medical History Past Medical History: Thyroid Disorder Additional Past Medical History / Comment(s): PCOS History of Any Multi-Drug Resistant Organisms: None Reported Past Surgical History: Adenoidectomy, Orthopedic Surgery Additional Past Surgical History / Comment(s): Two knee surgeries, pituitary tumor removal Past Anesthesia/Blood Transfusion Reactions: No Reported Reaction Past Psychological History: No Psychological Hx Reported Smoking Status: Never smoker Past Alcohol Use History: Occasional Past Drug Use History: None Reported - Past Family History Father History Unknown: Yes Family Medical History: AFIB Medications and Allergies Home Medications Medication Instructions Recorded Confirmed Type SUMAtriptan succinate [Imitrex] 50 mg PO DAILY PRN 09/15/19 11/07/22 History Acetaminophen [Tylenol] 325 mg PO Q4H PRN 11/07/22 11/07/22 History Diphenox-Atrop 2.5-0.025 mg 1 - 2 tab PO QID PRN 11/07/22 11/07/22 History [Lomotil] Dulaglutide [Trulicity] 1.5 mg SQ TU 11/07/22 11/07/22 History Enoxaparin [Lovenox] 40 mg SQ DAILY 11/07/22 11/07/22 History Hydrocortisone [Cortef] 5 mg PO W/SUPPER 11/07/22 11/07/22 History Hydrocortisone [Cortef] 15 mg PO W/LUNCH 11/07/22 11/07/22 History Hydrocortisone [Cortef] 20 mg PO W/BRKFST 11/07/22 11/07/22 History Levothyroxine Sodium [Tirosint] 25 mcg PO DAILY 11/07/22 11/07/22 History Pravastatin Sodium [Pravachol] 40 mg PO DAILY 11/07/22 11/07/22 History Sodium Chloride [[place]] 1 spray EA NOSTRIL BID 11/07/22 11/07/22 History metFORMIN HCL 500 mg PO BID 11/07/22 11/07/22 History oxyCODONE HCL [OxyIR] 5 mg PO QID PRN 11/07/22 11/07/22 History Allergies Allergy/AdvReac Type Severity Reaction Status Date / Time No Known Allergies Allergy Verified 11/07/22 22:28 Physical Exam Vitals: Vital Signs Temp Pulse Pulse Resp BP BP Pulse Ox 11/08/22 06:55 97.9 F 62 16 107/65 99 11/08/22 01:47 98.4 F 89 17 151/60 97 11/07/22 23:02 98.8 F 84 18 122/76 99 11/07/22 22:34 78 18 119/74 99 11/07/22 19:42 93 20 121/98 97 11/07/22 14:14 98.7 F 104 H 24 119/83 97 Intake and Output 11/07/22 11/08/22 11/08/22 22:59 06:59 14:59 Output Total 200 Balance -200 Output: Emesis 200 Other: # Voids 2 # Bowel Movements 2 1 Weight 86.183 kg 86.183 kg Results CBC & Chem 7: 11/08/22 07:00 11/08/22 07:00 Labs: Abnormal Lab Results - Last 24 Hours (Table) 11/07/22 11/07/22 11/07/22 Range/Units 14:56 14:56 14:56 Potassium 3.3 L (3.5-5.1) mmol/L Chloride 109 H (98-107) mmol/L Carbon Dioxide (22-30) mmol/L BUN 4 L (7-17) mg/dL Glucose 100 H (74-99) mg/dL POC Glucose (mg/dL) (70-110) mg/dL Plasma Lactic Acid Vidal 2.5 H* (0.7-2.0) mmol/L AST 76 H (14-36) U/L ALT 74 H (4-34) U/L Total Protein (6.3-8.2) g/dL Albumin (3.5-5.0) g/dL Urine Appearance Cloudy H (Clear) Urine Ketones Trace H (Negative) Ur Leukocyte Esterase Large H (Negative) Urine WBC 23 H (0-5) /hpf Urine Bacteria Many H (None) /hpf 11/08/22 11/08/22 Range/Units 07:00 11:04 Potassium (3.5-5.1) mmol/L Chloride 113 H (98-107) mmol/L Carbon Dioxide 20 L (22-30) mmol/L BUN 3 L (7-17) mg/dL Glucose (74-99) mg/dL POC Glucose (mg/dL) 122 H (70-110) mg/dL Plasma Lactic Acid Vidal (0.7-2.0) mmol/L AST 46 H (14-36) U/L ALT 62 H (4-34) U/L Total Protein 5.7 L (6.3-8.2) g/dL Albumin 3.4 L (3.5-5.0) g/dL Urine Appearance (Clear) Urine Ketones (Negative) Ur Leukocyte Esterase (Negative) Urine WBC (0-5) /hpf Urine Bacteria (None) /hpf Thrombosis Risk Factor Assmnt - Choose All That Apply Any of the Below Risk Factors Present?: No Each Risk Factor Represents 2 Points: Major surgery Other congenital or acquired thrombophilia - If yes, enter type in comment: No Thrombosis Risk Factor Assessment Total Risk Factor Score: 2 Thrombosis Risk Factor Assessment Level: Low Risk Assessment and Plan Assessment: Assessment and plan * Acute diarrhea rule out infectious etiology * History of pituitary tumor status post resection * [place]'s disease * Hypothyroid * Dyslipidemia * Obesity * Home medications reviewed and reconciled * CT abdomen and pelvis reviewed negative for colitis, stool C. diff ordered * In regards to history of pituitary tumor home regimen of hydrocortisone contin ued will need outpatient follow-up with provider is at [facility] Re: Weaning down from hydrocortisone * In regards to history of hypothyroid continue patient on Synthyroid * In regards to history of PCO S metformin on hold * Continue with IV hydration * CODE STATUS is full code
[2022-11-08 16:57] LABS: Glucose,Whole Blood 134 mg/dL (70-110)
[2022-11-08 19:28] LABS: Glucose,Whole Blood 154 mg/dL (70-110)
[2022-11-09 05:30] LABS: Glucose,Whole Blood 101 mg/dL (70-110)
[2022-11-09] MEDS: LEVOTHYROXINE 25 MCG TAB PO SCH (06:38)
[2022-11-09] MEDS: SODIUM CHLORIDE 0.9% 1,000 ML IV SCH ×3 (06:38→23:08)
[2022-11-09] MEDS: LACTOBACILLUS ACIDOPHILUS/PECT 1 EACH CAPSULE PO SCH ×4 (08:17→21:39)
[2022-11-09] MEDS: HYDROCORTISONE 20 MG TAB PO SCH (08:17)
[2022-11-09] MEDS: LORazepam 2 MG/ML INJ IV PRN ×2 (08:17→21:38)
[2022-11-09] MEDS: ENOXAPARIN 40 MG/0.4 ML SYRINGE SQ SCH (08:17)
[2022-11-09] MEDS: PRAVASTATIN SODIUM 40 MG TAB PO SCH (08:17)
[2022-11-09] MEDS: SODIUM CHLORIDE 0.65% NASAL SPRAY 44 ML BTL NASAL SCH ×2 (08:18→21:40)
[2022-11-09 08:20] LABS: African American GFR (CKD) >90 (>60 ml/min/1.73 sqM); Anion Gap 6 mmol/L; Blood Urea Nitrogen 4 mg/dL (7-17); Calcium 8.9 mg/dL (8.4-10.2); Carbon Dioxide 23 mmol/L (22-30); Chloride 116 mmol/L (98-107); Glucose 91 mg/dL (74-99); Magnesium 2.1 mg/dL (1.6-2.3); Non-African American GFR(CKD) >90 (>60 ml/min/1.73 sqM); Phosphorus 4.2 mg/dL (2.5-4.5); Potassium 3.7 mmol/L (3.5-5.1); Sodium 145 mmol/L (137-145)
[2022-11-09 09:17] LABS: HCT 36.4 % (37.2-46.3); HGB 11.2 d/dL (12.0-15.0); MCH 28.6 pg (27.0-32.0); MCHC 30.8 d/dL (32.0-37.0); MCV 92.9 FL (80.0-97.0); Mean Platelet Volume 10.5 FL (9.5-12.2); NRBC Per 100 WBC 0 X 10*3/uL (0.00-0.01); Platelet Count 311 X 10*3/uL (140-440); RBC 3.92 X 10*6/uL (4.10-5.20); RDW 13.6 % (11.5-14.5); WBC 7.12 X 10*3/uL (4.50-10.00)
[2022-11-09 11:12] LABS: Glucose,Whole Blood 105 mg/dL (70-110)
--- NOTE | 2022-11-09 12:08 | P.PN ---
Subjective Progress Note Date: 11/09/22 * 32-year-old lady with past medical history significant for gallstone pancreatitis status post cholecystectomy,pituitary microadenoma, [place] disease, thyroid disorder, history of PCOS presented to the emergency department with ongoing abdominal pain and diarrhea ongoing since her surgery which was done on 10/15/2022 * Patient states few days after her acute treated tumor surgery she started to have loose stool. She reached out to her provider at [facility] who wanted her to follow-up with primary care physician * Outpatient follow-up including testing for rotavirus which was negative * Upon admission patient was noted to have a CBC done which was essentially normal. Basic metabolic panel did show sodium of 142 potassium 3.9 chloride of 113 CO2 of 20 creatinine within normal limits liver profile showed AST of 45-year-old lady of 62 alkaline phosphatase within normal limits * She'll continue to have ongoing diarrhea for which he will be tested for C. diff. * CT abdomen and pelvis obtained was negative for colitis for acute intra- abdominal process * 11/09: Patient assesed at bedside , diarrhea has improved patient states her abdominal pain has improved however does complain of distention. Will check serum gastrin levels and MRI abdomen ordered to rule out gastrin secreting tumor causing secretory diarrhea Objective - Vital Signs Vital signs: Vital Signs Temp 97.9 F 11/08/22 23:57 Pulse 75 11/08/22 23:57 Resp 16 11/08/22 23:57 BP 127/82 11/08/22 23:57 Pulse Ox 100 11/08/22 23:57 FiO2 Intake & Output 11/08/22 11/08/22 11/09/22 06:59 18:59 06:59 Intake Total 1560 Output Total 200 Balance -200 1560 Weight 86.183 kg 86.183 kg Intake: Intake, IV Titration 1560 Amount Sodium Chloride 0.9% 1, 1560 000 ml @ 130 mls/hr IV . Q7H42M [facility] Rx#:[id number] Output: Emesis 200 Other: # Voids 2 # Bowel Movements 2 1 - Exam PHYSICAL EXAMINATION: GENERAL: The patient is alert and oriented x3, not in any acute distress. Well developed, well nourished. HEENT: Pupils are round and equally reacting to light. EOMI. No scleral icterus. No conjunctival pallor. Normocephalic, atraumatic. No pharyngeal erythema. No thyromegaly. CARDIOVASCULAR: S1 and S2 present. No murmurs, rubs, or gallops. PULMONARY: Chest is clear to auscultation, no wheezing or crackles. ABDOMEN: Soft, nontender, distended, scar from previous surgery noted right lower quadrant MUSCULOSKELETAL: No joint swelling or deformity. EXTREMITIES: No cyanosis, clubbing, or pedal edema. NEUROLOGICAL: Gross neurological examination did not reveal any focal deficits. SKIN: No rashes. - Labs CBC & Chem 7: 11/09/22 06:42 11/09/22 06:42 Labs: Abnormal Lab Results - Last 24 Hours (Table) 11/08/22 11/08/22 11/08/22 Range/Units 07:00 11:04 16:56 Chloride 113 H (98-107) mmol/L Carbon Dioxide 20 L (22-30) mmol/L BUN 3 L (7-17) mg/dL POC Glucose (mg/dL) 122 H 134 H (70-110) mg/dL AST 46 H (14-36) U/L ALT 62 H (4-34) U/L Total Protein 5.7 L (6.3-8.2) g/dL Albumin 3.4 L (3.5-5.0) g/dL 11/08/22 Range/Units 19:27 Chloride (98-107) mmol/L Carbon Dioxide (22-30) mmol/L BUN (7-17) mg/dL POC Glucose (mg/dL) 154 H (70-110) mg/dL AST (14-36) U/L ALT (4-34) U/L Total Protein (6.3-8.2) g/dL Albumin (3.5-5.0) g/dL Assessment and Plan Assessment: Assessment and plan * Acute diarrhea rule out infectious etiology versus secretory diarrhea * History of pituitary tumor status post resection * [place]'s disease * Hypothyroid * Dyslipidemia * Obesity * Home medications reviewed and reconciled * CT abdomen and pelvis reviewed negative for colitis, stool C. diff negative, Serum Gastrin levels ordered, MRI Abdomen ordered * In regards to history of pituitary tumor home regimen of hydrocortisone continued will need outpatient follow-up with provider is at [facility] Re: Weaning down from hydrocortisone * In regards to history of hypothyroid continue patient on Synthyroid * In regards to history of PCOS metformin on hold * Continue with IV hydration, will wean off his diet is advanced * CODE STATUS is full code
[2022-11-09] MEDS: HYDROCORTISONE 10 MG TAB PO SCH ×2 (12:49→17:38)
--- NOTE | 2022-11-09 15:06 | XR ---
KUB. HISTORY: Distention COMPARISON: None. TECHNIQUE: 2 upright views of the abdomen were obtained. FINDINGS: The lung bases are clear. There is no free intraperitoneal air beneath the diaphragm. The bowel gas pattern is nonspecific and there is no evidence of obstruction. No suspicious abdominal or pelvic calcifications are seen. The osseous structures are intact. IMPRESSION: Nonspecific abdomen without evidence of free air or obstruction.
[2022-11-09] MEDS: SIMETHICONE 80 MG CHEWABLE PO SCH ×2 (15:16→21:39)
[2022-11-09 16:54] LABS: Glucose,Whole Blood 114 mg/dL (70-110)
[2022-11-09 19:26] LABS: Glucose,Whole Blood 123 mg/dL (70-110)
[2022-11-10 06:03] LABS: Glucose,Whole Blood 96 mg/dL (70-110)
[2022-11-10] MEDS: SODIUM CHLORIDE 0.9% 1,000 ML IV SCH ×3 (06:24→21:05)
[2022-11-10] MEDS: LEVOTHYROXINE 25 MCG TAB PO SCH (06:24)
[2022-11-10] MEDS: SODIUM CHLORIDE 0.65% NASAL SPRAY 44 ML BTL NASAL SCH ×2 (08:41→21:37)
[2022-11-10] MEDS: LACTOBACILLUS ACIDOPHILUS/PECT 1 EACH CAPSULE PO SCH ×4 (08:41→21:37)
[2022-11-10] MEDS: SIMETHICONE 80 MG CHEWABLE PO SCH ×3 (08:41→21:37)
[2022-11-10] MEDS: PRAVASTATIN SODIUM 40 MG TAB PO SCH (08:41)
[2022-11-10] MEDS: ENOXAPARIN 40 MG/0.4 ML SYRINGE SQ SCH (08:41)
[2022-11-10] MEDS: HYDROCORTISONE 20 MG TAB PO SCH (08:42)
[2022-11-10 11:15] LABS: Glucose,Whole Blood 133 mg/dL (70-110)
[2022-11-10] MEDS: LORazepam 2 MG/ML INJ IV PRN ×2 (12:11→21:37)
--- NOTE | 2022-11-10 13:29 | MR ---
EXAMINATION TYPE: MR abdomen wo/w con DATE OF EXAM: 11/10/2022 COMPARISON: HISTORY: S/P pituitary tumor removal 10/15/22. Pt c/o abd pain with nausea/vomiting, diarrhea x 2 wks . CONTRAST: Standard multiplanar, multisequence MRI departmental protocol images were obtained without contrast a nd with 8.5 mL intravenous Gadavist gadolinium contrast. FINDINGS: Liver: The liver is homogeneous and free of mass lesion. The gallbladder surgically absent. No evidence for intra or extrahepatic biliary ductal dilatation. The pancreas is free of mass lesion or inflammatory process. The spleen and adrenal glands are within normal limits without mass lesion. The kidneys are free of h ydronephrosis or nephrolithiasis. No renal masses seen. Normal-appearing aortic bifurcation without soft tissue mass. Aorta is of normal caliber. No retroper itoneal adenopathy. IMPRESSION: No evidence for neuroendocrine tumor on MRI of the abdomen.
--- NOTE | 2022-11-10 13:40 | P.PN ---
Subjective Progress Note Date: 11/10/22 32-year-old lady with past medical history significant for gallstone pancreatitis status post cholecystectomy,pituitary microadenoma, [place] disease, thyroid disorder, history of PCOS presented to the emergency department with ongoing abdominal pain and diarrhea ongoing since her surgery which was done on 10/15/2022 * Patient states few days after her acute treated tumor surgery she started to have loose stool. She reached out to her provider at [facility] who wanted her to follow-up with primary care physician * Outpatient follow-up including testing for rotavirus which was negative * Upon admission patient was noted to have a CBC done which was essentially normal. Basic metabolic panel did show sodium of 142 potassium 3.9 chloride of 113 CO2 of 20 creatinine within normal limits liver profile showed AST of 45-year-old lady of 62 alkaline phosphatase within normal limits * She'll continue to have ongoing diarrhea for which he will be tested for C. diff. * CT abdomen and pelvis obtained was negative for colitis for acute intra- abdominal process * 11/09: Patient assesed at bedside , diarrhea has improved patient states her abdominal pain has improved however does complain of distention. Will check serum gastrin levels and MRI abdomen ordered to rule out gastrin secreting tumor causing secretory diarrhea 11/10. Patient diarrhea has improved. MRI abdominal still pending. Denies abdominal pain. Has good appetite REVIEW OF SYSTEMS: CONSTITUTIONAL: No fever, no malaise,. CARDIOVASCULAR: No chest pain, no palpitations, no syncope. PULMONARY: No shortness of breath, no cough, GASTROINTESTINAL: No diarrhea, no nausea, no vomiting, no abdominal pain. NEUROLOGICAL: No headaches, no weakness, PHYSICAL EXAMINATION: GENERAL: The patient is alert and oriented x3, not in any acute distress. Well developed, well nourished. HEENT: Pupils are round and equally reacting to light. EOMI. No scleral icterus. No conjunctival pallor. Normocephalic, atraumatic. No pharyngeal erythema. No thyromegaly. CARDIOVASCULAR: S1 and S2 present. No murmurs, rubs, or gallops. PULMONARY: Chest is clear to auscultation, no wheezing or crackles. ABDOMEN: Soft, nontender, nondistended, normoactive bowel sounds. No palpable organomegaly. MUSCULOSKELETAL: No joint swelling or deformity. EXTREMITIES: No cyanosis, clubbing, or pedal edema. NEUROLOGICAL: Gross neurological examination did not reveal any focal deficits. SKIN: No rashes. Assessment and plan * Acute diarrhea rule out infectious etiology versus secretory diarrhea * History of pituitary tumor status post resection * Nia's disease * Hypothyroid * Dyslipidemia * Obesity Monitor vital signs Monitor CBC Monitor CMP In regards to history of pituitary tumor home regimen of hydrocortisone continued will need outpatient follow-up with provider is at [facility] Re: Weaning down from hydrocortisone In regards to history of hypothyroid continue patient on Synthyroid In regards to history of PCOS metformin on hold MRI abdominal ordered Gastrin levels ordered Labs and medication were reviewed.. Continue same treatment. Continue with symptomatic treatment. Resume home medication. Monitor labs and vitals. DVT and GI prophylaxis. Further recommendations as per clinical course of the patient Dictation was produced using [employer] dictation software. please excuse any grammatical, word or spelling errors. Objective - Vital Signs Vital signs: Vital Signs Temp 98.0 F 11/10/22 07:42 Pulse 72 11/10/22 07:42 Resp 18 11/10/22 07:42 BP 109/71 11/10/22 07:42 Pulse Ox 98 11/10/22 07:42 FiO2 Intake & Output 11/09/22 11/10/22 11/10/22 18:59 06:59 18:59 Intake Total 400 Balance 400 Intake: Intake, IV Titration 400 Amount Sodium Chloride 0.9% 1, 400 000 ml @ 130 mls/hr IV . Q7H42M [facility] Rx#:[id number] Other: Voiding Method Toilet # Voids 4 2 # Bowel Movements 1 - Labs CBC & Chem 7: 11/09/22 06:42 11/09/22 06:42 Labs: Abnormal Lab Results - Last 24 Hours (Table) 11/09/22 11/09/22 Range/Units 16:50 19:24 POC Glucose (mg/dL) 114 H 123 H (70-110) mg/dL Microbiology - Last 24 Hours (Table) 11/07/22 17:15 Blood Culture - Preliminary Blood 11/07/22 17:30 Blood Culture - Preliminary Blood 11/08/22 09:50 Urine Culture - Final Urine,Voided
[2022-11-10] MEDS: HYDROCORTISONE 10 MG TAB PO SCH ×2 (13:57→16:54)
[2022-11-10 16:46] LABS: Glucose,Whole Blood 184 mg/dL (70-110)
[2022-11-10 20:33] LABS: Glucose,Whole Blood 135 mg/dL (70-110)
[2022-11-11] MEDS: SODIUM CHLORIDE 0.9% 1,000 ML IV SCH (00:35)
[2022-11-11 06:05] LABS: Glucose,Whole Blood 101 mg/dL (70-110)
[2022-11-11] MEDS: HYDROCORTISONE 20 MG TAB PO SCH (06:38)
[2022-11-11] MEDS: LEVOTHYROXINE 25 MCG TAB PO SCH (06:38)
[2022-11-11] MEDS ORDERED: NON FORMULARY DRUG (Dulaglutide [Trulicity] 1.5 MG/0.5 ML Each) SQ SCH (09:00)
[2022-11-11] MEDS: PRAVASTATIN SODIUM 40 MG TAB PO SCH (09:50)
[2022-11-11] MEDS: LACTOBACILLUS ACIDOPHILUS/PECT 1 EACH CAPSULE PO SCH ×2 (09:50→13:32)
[2022-11-11] MEDS: ENOXAPARIN 40 MG/0.4 ML SYRINGE SQ SCH (09:50)
[2022-11-11] MEDS: SIMETHICONE 80 MG CHEWABLE PO SCH (09:50)
[2022-11-11] MEDS: SODIUM CHLORIDE 0.65% NASAL SPRAY 44 ML BTL NASAL SCH (09:51)
[2022-11-11 11:29] LABS: HCT 36.1 % (37.2-46.3); HGB 11.7 d/dL (12.0-15.0); MCHC 32.4 d/dL (32.0-37.0); MCV 89.6 FL (80.0-97.0); Mean Platelet Volume 10.7 FL (9.5-12.2); NRBC Per 100 WBC 0 X 10*3/uL (0.00-0.01); Platelet Count 316 X 10*3/uL (140-440); RBC 4.03 X 10*6/uL (4.10-5.20); RDW 13.2 % (11.5-14.5); WBC 8.71 X 10*3/uL (4.50-10.00)
[2022-11-11 11:47] LABS: Glucose,Whole Blood 148 mg/dL (70-110)
--- NOTE | 2022-11-11 12:31 | P.DS ---
Providers Date of admission: 11/07/22 21:21 Expected date of discharge: 11/11/22 Attending physician: Alden Ag Primary care physician: Stated None Hospital Course: * 32-year-old lady with past medical history significant for gallstone pancreatitis status post cholecystectomy,pituitary microadenoma, [place] disease, thyroid disorder, history of PCOS presented to the emergency department with ongoing abdominal pain and diarrhea ongoing since her surgery which was done on 10/15/2022 * Patient states few days after her acute treated tumor surgery she started to have loose stool. She reached out to her provider at [facility] who wanted her to follow-up with primary care physician * Outpatient follow-up including testing for rotavirus which was negative * Upon admission patient was noted to have a CBC done which was essentially normal. Basic metabolic panel did show sodium of 142 potassium 3.9 chloride of 113 CO2 of 20 creatinine within normal limits liver profile showed AST of 45-year-old lady of 62 alkaline phosphatase within normal limits * She'll continue to have ongoing diarrhea for which he will be tested for C. diff. * CT abdomen and pelvis obtained was negative for colitis for acute intra- abdominal process * 11/09: Patient assesed at bedside , diarrhea has improved patient states her abdominal pain has improved however does complain of distention. Will check serum gastrin levels and MRI abdomen ordered to rule out gastrin secreting tumor causing secretory diarrhea * 11/10. Patient diarrhea has improved. MRI abdominal still pending. Denies abdominal pain. Has good appetite * 11/11: Patient seen and evaluated bedside care plan discussed in detail. MRI abdomen negative for acute process. Communication between her and [facility] read. Per communication hydrocortisone increased to 20 mg with breakfast, 20 mg with lunch, and 10 mg with supper. Prescription provided. Patient notified that TSH, free T4 and gastrin level still pending. She will need to follow-up with PCP and provider your family and need to retreat medical records from here PHYSICAL EXAMINATION: GENERAL: The patient is alert and oriented x3, not in any acute distress. Well developed, well nourished. HEENT: Pupils are round and equally reacting to light. EOMI. No scleral icterus. No conjunctival pallor. Normocephalic, atraumatic. No pharyngeal erythema. No thyromegaly. CARDIOVASCULAR: S1 and S2 present. No murmurs, rubs, or gallops. PULMONARY: Chest is clear to auscultation, no wheezing or crackles. ABDOMEN: Soft, nontender, nondistended, normoactive bowel sounds. No palpable organomegaly. MUSCULOSKELETAL: No joint swelling or deformity. EXTREMITIES: No cyanosis, clubbing, or pedal edema. NEUROLOGICAL: Gross neurological examination did not reveal any focal deficits. SKIN: No rashes. Assessment: Assessment and plan * Acute diarrhea suspect secretory diarrhea >> infectious etiology ruled out * History of pituitary tumor status post resection * Nia's disease * Hypothyroid * Dyslipidemia * Obesity In regards to history of pituitary tumor home regimen of hydrocortisone continu ed will need outpatient follow-up with provider is at [facility] , prescription for hydrocortisone provided continue 20 mg with breakfast, 20 mg with lunch, 10 mg at supper and follow-up with endocrinology at and [facility] to [place] In regards to history of hypothyroid continue patient on Synthyroid In regards to history of PCOS metformin resumed MRI abdominal negative Gastrin levels pending, send out, TSH and free T4 levels ordered Patient Condition at Discharge: Fair Plan - Discharge Summary Discharge Rx Participant: No New Discharge Prescriptions: Continue SUMAtriptan succinate [Imitrex] 50 mg PO DAILY PRN PRN Reason: Migraine Headache metFORMIN HCL 500 mg PO BID Hydrocortisone [Cortef] 20 mg PO W/BRKFST Sodium Chloride [[place]] 1 spray EA NOSTRIL BID Pravastatin Sodium [Pravachol] 40 mg PO DAILY Diphenox-Atrop 2.5-0.025 mg [Lomotil] 1 - 2 tab PO QID PRN PRN Reason: Diarrhea Acetaminophen [Tylenol] 325 mg PO Q4H PRN PRN Reason: Migraine Headache Levothyroxine Sodium [Tirosint] 25 mcg PO DAILY oxyCODONE HCL [OxyIR] 5 mg PO QID PRN PRN Reason: Pain Enoxaparin [Lovenox] 40 mg SQ DAILY Dulaglutide [Trulicity] 1.5 mg SQ TU Changed Hydrocortisone [Cortef] 10 mg PO W/SUPPER 30 Days #60 tab Hydrocortisone [Cortef] 20 mg PO W/LUNCH 30 Days #120 tab Discharge Medication List SUMAtriptan succinate [Imitrex] 50 mg PO DAILY PRN 09/15/19 [History] Acetaminophen [Tylenol] 325 mg PO Q4H PRN 11/07/22 [History] Diphenox-Atrop 2.5-0.025 mg [Lomotil] 1 - 2 tab PO QID PRN 11/07/22 [History] Dulaglutide [Trulicity] 1.5 mg SQ TU 11/07/22 [History] Enoxaparin [Lovenox] 40 mg SQ DAILY 11/07/22 [History] Hydrocortisone [Cortef] 20 mg PO W/BRKFST 11/07/22 [History] Levothyroxine Sodium [Tirosint] 25 mcg PO DAILY 11/07/22 [History] Pravastatin Sodium [Pravachol] 40 mg PO DAILY 11/07/22 [History] Sodium Chloride [[place]] 1 spray EA NOSTRIL BID 11/07/22 [History] metFORMIN HCL 500 mg PO BID 11/07/22 [History] oxyCODONE HCL [OxyIR] 5 mg PO QID PRN 11/07/22 [History] Hydrocortisone [Cortef] 10 mg PO W/SUPPER 30 Days #60 tab 11/11/22 [Rx] Hydrocortisone [Cortef] 20 mg PO W/LUNCH 30 Days #120 tab 11/11/22 [Rx] Follow up Appointment(s)/Referral(s): None,Stated [Primary Care Provider] - 1-2 days Activity/Diet/Wound Care/Special Instructions: Need follow up with [facility] Providers TSH, Free T 4 and Gastrin levels pending at the time of Discharge Obtain MEdical records and share with [facility] Provider Discharge Disposition: HOME SELF-CARE
[2022-11-11 13:28] LABS: ALT 54 U/L (8-44); AST 31 U/L (13-35); Albumin 3.7 d/dL (3.8-4.9); Albumin/Globulin Ratio 2.06 Ratio (1.60-3.17); Alkaline Phosphatase 68 U/L (41-126); BUN/Creat Ratio 5.86 Ratio (12.00-20.00); Blood Urea Nitrogen 4.1 mg/dL (9.0-27.0); Calcium 9.4 mg/dL (8.7-10.3); Carbon Dioxide 24.2 mmol/L (21.6-31.8); Chloride 111 mmol/L (96-109); Globulin 1.8 d/dL (1.6-3.3); Glucose 90 mg/dL (70-110); Potassium 4.1 mmol/L (3.5-5.5); Sodium 147 mmol/L (135-145); Total Bilirubin 0.2 mg/dL (0.3-1.2); Total Protein 5.5 d/dL (6.2-8.2)
[2022-11-11] MEDS: HYDROCORTISONE 10 MG TAB PO SCH (13:32)
[2022-11-11 15:36] VITALS: BP 131/91; PULSE 102; RESP 14; TEMP 97.9
== END 2022-11-11 15:55 | disposition home or self-care (01) | DRG 392 ==
LOC: EC 14:09 → 5NMEDONC 21:21 → 4SSUR 21:39
PROVIDERS: ADMIT Hospitalist; ATTEND Hospitalist
DX: A08.8 Other specified intestinal infections (principal); E24.9 Cushing's syndrome, unspecified; E03.9 Hypothyroidism, unspecified; Z79.890 Hormone replacement therapy; E66.9 Obesity, unspecified; E78.5 Hyperlipidemia, unspecified; F41.9 Anxiety disorder, unspecified; K81.9 Cholecystitis, unspecified; Z68.29 Body mass index [BMI] 29.0-29.9, adult; E28.2 Polycystic ovarian syndrome; Z90.49 Acquired absence of other specified parts of digestive tract; Z79.84 Long term (current) use of oral hypoglycemic drugs; Z79.899 Other long term (current) drug therapy
CPT/HCPCS: 36415; 74018; 74177; 74183; 80048; 80053; 81001; 82150; 82941; 83605; 83690; 83735; 84100; 84439; 84443; 84702; 85025; 85027; 87040; 87086; 87324; 96361; 96374; 96375; 99285; 99406

== ENCOUNTER → 2022-12-25 | Outpatient (CLI) | payer BC ==
--- NOTE | 2022-12-26 10:22 | CT ---
EXAMINATION TYPE: CT sinus wo con CT DLP: 493.7 mGycm, Automated exposure control for dose reduction was used. DATE OF EXAM: 12/25/2022 5:15 PM COMPARISON: MRI 05/30/2022. CLINICAL INDICATION:Female, 32 years old with history of J01.81 OTHER ACUTE RECURRENT SINUSITIS; , si nus issues post removal of pituitary gland tumor TECHNIQUE: Multiple thin axial images were obtained through the paranasal sinuses without the use of IV contrast. Additional coronal and sagittal reformatted images were submitted for evaluation. Contrast used: none Oral contrast used: none FINDINGS: Frontal sinuses: Normally developed and aerated. Frontal Recess: Clear Maxillary Sinuses: Normally developed and aerated. Mild mucosal thickening in the inferior aspect shalonda aterally Maxillary Infundibula(OMC): Clear, No Efren cells identified. Ethmoid sinuses: Normally developed scattered mucosal thickening.. Ethmoidal notch: Unprotected bilat eral anterior ethmoidal arteries. Sphenoid sinuses: There is loss of cortex in the anterior aspect of the pituitary/sella compatible wi th recent surgery changes, there is a soft tissue fullness throughout the mid sphenoid sinuses extend ing into the ethmoid air cells. There is sellar sphenoid sinus pneumatization. No dehiscence of carot id canal. No evidence of optic nerve dehiscence within the sphenoid sinus. No evidence of Onodi cells . Sphenoethmoidal recesses: Opacified bilaterally. Nasal septum: Within normal limits.. Nasal Turbinates: Postsurgical changes suspected of the superior turbinates bilaterally. Mastoid air cells & middle ears: The air cells are clear. The middle ears are grossly unremarkable. Modified Soft tissues & Brain: Partially seen without gross abnormality. Globes are intact. Other: Cribriform plate demonstrates symmetric Keros classification type 2 cribriform plate. No evidence of bony dehiscence of skull base. Lamina papyracea is intact without evidence of remote orbital fracture or orbital prolapse into the e thmoid sinus. IMPRESSION: 1. Post surgical changes to the sella turcica with loss of bony covering of the anterior pituitary. There is soft tissue fullness within the sphenoid sinus which could represent mucosal thickening/post surgical change. Consider MRI with IV contrast for further evaluation and characterization. 2. Ostiomeatal complex and anterior frontal ethmoidal recesses are clear.
== END | disposition home or self-care (01) ==
LOC: RADCTMAIN 16:54
PROVIDERS: ATTEND Otolaryngology
DX: J01.81 Other acute recurrent sinusitis (principal); G93.89 Other specified disorders of brain
CPT/HCPCS: 70486

== ENCOUNTER → 2023-01-14 | Outpatient (CLI) | payer BC ==
--- NOTE | 2023-01-15 09:45 | MR ---
EXAMINATION TYPE: MR pituitary wo/w con DATE OF EXAM: 01/14/2023 10:08 PM CLINICAL INDICATION:Female, 32 years old with history of J32.2 CHRONIC ETHMOIDAL SINUSITIS, Pituitary adenoma surgery 2.5 months ago, please compare to prior. COMPARISON: 05/30/2022 TECHNIQUE: Multi planar, multi sequence imaging was performed through the brain. Specialized thin s equences were obtained through the pituitary gland/sella turcica. Pre-and post gadolinium sequences were obtained. IV Contrast: 8.5 cc Gadavist FINDINGS: Interval postsurgical changes to the pituitary gland. There is a heterogenous appearance of the pitui tary gland and sphenoid sinuses. No definitive residual tumor visualized. The pituitary stalk is not deviated. After administration of gadolinium, no masslike enhancement is seen. The modi-white junctions, ventricular system, and basal cisterns appear unremarkable. The intracrani al arterial flow voids are intact. IMPRESSION: Interval postsurgical changes to the pituitary gland. There is a heterogenous appearance of the pitui tary gland and sphenoid sinuses. No definitive residual tumor visualized.
== END | disposition home or self-care (01) ==
LOC: RADMRIMAIN 21:30
PROVIDERS: ATTEND Otolaryngology
DX: J32.2 Chronic ethmoidal sinusitis (principal); Z86.018 Personal history of other benign neoplasm
CPT/HCPCS: 70553; A9585

== ENCOUNTER → 2023-01-17 | Outpatient (CLI) | payer BC ==
--- NOTE | 2023-01-17 15:06 | MR ---
EXAMINATION TYPE: MR brain wo/w con DATE OF EXAM: 01/17/2023 1:13 PM CLINICAL INDICATION:Female, 32 years old with history of J32.2 CHRONIC ETHMOIDAL SINUSITIS; PHH, Sinu s issues post pituitary surgery COMPARISON: 01/14/2023, 05/30/2022 TECHNIQUE: Multi planar, multi sequence imaging was performed through the brain including: T1, T2, In version recovery, susceptibility weighted imaging and gradient echo imaging and Diffusion weighted im aging. The patient was then given intravenous contrast and multi planar, T1 fat-saturation images wer e obtained. IV Contrast: 8.5 cc Gadavist FINDINGS: Persistent postsurgical changes to the pituitary gland. No significant change from immediate prior. T here is a heterogenous appearance of the pituitary gland and sphenoid sinuses. No definitive residual tumor visualized. The pituitary stalk is not deviated. After administration of gadolinium, no massl magnolia enhancement is seen. The modi-white junctions, ventricular system, and basal cisterns appear unremarkable. The intracrani al arterial flow voids are intact. IMPRESSION: Similar postsurgical changes to the pituitary gland. There is a heterogenous appearance of the pituit sixto gland and sphenoid sinuses. No definitive residual tumor visualized.
== END | disposition home or self-care (01) ==
LOC: RADMRIMAIN 12:28
PROVIDERS: ATTEND Otolaryngology
DX: J32.2 Chronic ethmoidal sinusitis (principal); Z98.890 Other specified postprocedural states
CPT/HCPCS: 70553; A9585

== ENCOUNTER 2023-02-16 16:02 | Emergency (ER) | payer BC ==
[2023-02-16 16:50] VITALS: TEMP 98.1
--- NOTE | 2023-02-16 16:50 | ED ---
General Adult HPI - General Source: patient Mode of arrival: ambulatory Limitations: no limitations <Gareth Luu - Last Filed: 02/16/23 16:50> - History of Present Illness Onset/Timin -: days(s) Radiation: extremity Quality: aching, dull Consistency: intermittent Improves with: none Worsens with: none Associated Symptoms: shortness of breath Treatments Prior to Arrival: none <Kwan Caldwell - Last Filed: 02/27/23 09:35> - General Chief complaint: Shortness of Breath Stated complaint: sob pains all over Time Seen by Provider: 02/16/23 16:50 - History of Present Illness Initial comments: 32-year-old female presenting to the ED with a chief complaint of shortness of breath. Patient reports for the past week or so has had shortness of breath and arthralgias. Denies chest pain. Denies tobacco use. No control. Denies exogenous hormone use. (Gareth Luu) Patient is a 32-year-old woman who presents with a constellation of symptoms going back approximately 10 days. The patient states she has been having an urge that she needs to take a deep breath but then she feels like when she does try that it is limited. She states she is not frankly short of breath, but she does have a sensation periodically where she feels need to take deep breath is going back about 10 days. She states she has also been having stiffness in the joints and joint pains. She notes that she has been tapering off steroids for some time now her ENT had given her an 8 week taper. The patient states that she also has had a number recent courses of medication she was diagnosed with she states a Pseudomonas sinus infection. She states she had been through she believes 6 different antibiotics within the past 2 weeks, she was told to discontinue all antibiotic coverage by her [facility] physician. (Kwan Caldwell) - Related Data Home Medications Medication Instructions Recorded Confirmed SUMAtriptan succinate [Imitrex] 50 mg PO DAILY PRN 09/15/19 02/16/23 Levothyroxine Sodium [Tirosint] 25 mcg PO DAILY@0800 11/07/22 02/16/23 Pravastatin Sodium [Pravachol] 40 mg PO HS 11/07/22 02/16/23 ALPRAZolam [Xanax] 0.25 mg PO DAILY PRN 02/16/23 02/16/23 Hydrocortisone [Cortef] 5 mg PO DAILY@1430 02/16/23 02/16/23 Hydrocortisone [Cortef] 10 mg PO DAILY@1000 02/16/23 02/16/23 Mupirocin 2% Oint [Bactroban 2% 1 applic NASAL BID 02/16/23 02/16/23 Oint] Ondansetron Odt [Zofran Odt] 4 mg PO Q8H PRN 02/16/23 02/16/23 Sodium Chloride/Sodium Bicarb 1 pack NASAL BID 02/16/23 02/16/23 [Sinus Wash Neti Pot Kit] Previous Rx's Medication Instructions Recorded rOPINIRole HCL [Requip] 0.25 mg PO HS #10 tablet 02/16/23 Allergies Allergy/AdvReac Type Severity Reaction Status Date / Time No Known Allergies Allergy Verified 02/16/23 18:18 Review of Systems ROS Other: All systems not noted in ROS Statement are negative. <Gareth Luu - Last Filed: 02/16/23 16:50> ROS Other: All systems not noted in ROS Statement are negative. Constitutional: Denies: fever, chills, weakness Eyes: Denies: vision change Respiratory: Reports: as per HPI, other. Denies: cough, dyspnea, hemoptysis Cardiovascular: Denies: chest pain, palpitations, edema Endocrine: Reports: fatigue Gastrointestinal: Denies: abdominal pain, vomiting, diarrhea Genitourinary: Denies: dysuria, frequency, hematuria Musculoskeletal: Reports: as per HPI, arthralgia Skin: Denies: rash, lesions Neurological: Denies: headache, weakness, numbness <Kwan Caldwell - Last Filed: 02/27/23 09:35> ROS Statement: Those systems with pertinent positive or pertinent negative responses have been documented in the HPI. Past Medical History Past Medical History: Thyroid Disorder Additional Past Medical History / Comment(s): PCOS History of Any Multi-Drug Resistant Organisms: None Reported Past Surgical History: Adenoidectomy, Orthopedic Surgery Additional Past Surgical History / Comment(s): Two knee surgeries, pituitary tumor removal Past Anesthesia/Blood Transfusion Reactions: No Reported Reaction Past Psychological History: No Psychological Hx Reported Smoking Status: Never smoker Past Alcohol Use History: Occasional Past Drug Use History: None Reported - Past Family History Father History Unknown: Yes Family Medical History: AFIB <Gareth Luu - Last Filed: 02/16/23 16:50> General Exam Limitations: no limitations <Gareth Luu - Last Filed: 02/16/23 16:50> Limitations: no limitations General appearance: alert, in no apparent distress Head exam: Present: atraumatic, normocephalic Eye exam: Present: normal appearance. Absent: scleral icterus, conjunctival injection ENT exam: Present: normal oropharynx Neck exam: Present: normal inspection, full ROM Respiratory exam: Present: normal lung sounds bilaterally. Absent: respiratory distress, wheezes, rales, rhonchi, stridor, accessory muscle use Cardiovascular Exam: Present: regular rate, normal rhythm, normal heart sounds. Absent: systolic murmur, diastolic murmur, rubs, gallop GI/Abdominal exam: Present: soft. Absent: distended, tenderness, guarding, rebound, rigid, mass Extremities exam: Present: normal inspection, normal capillary refill. Absent: pedal edema, calf tenderness Back exam: Present: normal inspection. Absent: CVA tenderness (R), CVA tenderne ss (L) Neurological exam: Present: alert Skin exam: Present: warm, dry, intact, normal color. Absent: rash <PauletteKwan - Last Filed: 02/27/23 09:35> - General Exam Comments Initial Comments: Visual Physical Exam Vital signs reviewed General: Well-appearing, nontoxic, no acute distress. Head: Normocephalic, atraumatic Eyes: PERRLA, EOMI ENT: Airway patent Chest: Nonlabored breathing Skin: No visual rash, normal skin tone Neuro: Alert and oriented 3 Musculoskeletal: No gross abnormalities (Gareth Luu) Course Vital Signs 02/16/23 02/16/23 02/16/23 16:26 17:17 20:22 Temperature 98.1 F Pulse Rate 97 68 Respiratory 22 20 18 Rate Blood Pressure 104/71 102/61 O2 Sat by Pulse 99 99 Oximetry EKG Findings - EKG Results: EKG: interpreted by ERMD, sinus rhythm (Rate 84 bpm), normal axis, normal QRS, normal ST/T, no acute changes <Kwan Caldwell - Last Filed: 02/27/23 09:35> Medical Decision Making <Gareth Luu - Last Filed: 02/16/23 16:50> - Lab Data Result diagrams: 02/16/23 17:42 02/16/23 17:42 <Kwna Caldwell - Last Filed: 02/27/23 09:35> - Medical Decision Making Quicknote portion performed. Signed Gareth Luu PA-C (Gareth Luu) The patient had chest x-ray which I interpreted as negative for acute infiltrate, pneumothorax, congestive heart failure Was pt. sent in by a medical professional or institution (, PA, TAR DISTRIBUTOR OPERATOR, urgent care, hospital, or [facility]cc...) When possible be specific @ -[No] Did you speak to anyone other than the patient for history (EMS, parent, family, police, friend...)? What history was obtained from this source @ -[No] Did you review nursing and triage notes (agree or disagree)? Why? @ -[I reviewed and agree with nursing and triage notes] Were old charts reviewed (outside hosp., previous admission, EMS record, old EKG, old radiological studies, urgent care reports/EKG's, mcc records)? Report findings @ -[No old charts were reviewed] Differential Diagnosis (chest pain, altered mental status, abdominal pain women, abdominal pain men, vaginal bleeding, weakness, fever, dyspnea, syncope, headache, dizziness, GI bleed, back pain, seizure, CVA, palpatations, mental health, musculoskeletal)? @ -[Differential Dyspnea: Coronary syndrome, arrhythmia, tamponade, asthma, COPD, pulmonary embolism, pneumonia, pneumothorax, pulmonary effusion, anaphylaxis, diabetic ketoacidosis, flailed chest, pulmonary contusion, diaphragmatic rupture, anemia, n euromuscular, this is not meant to be an all-inclusive list. EKG interpreted by me (3pts min.). @ -[As above] X-rays interpreted by me (1pt min.). @ -[I interpreted as above CT interpreted by me (1pt min.). @ -[None done] U/S interpreted by me (1pt. min.). @ -[None done] What testing was considered but not performed or refused? (CT, X-rays, U/S, labs)? Why? @ -[None] What meds were considered but not given or refused? Why? @ -[None] Did you discuss the management of the patient with other professionals (professionals i.e. , PA, TAR DISTRIBUTOR OPERATOR, lab, RT, psych nurse, web content & social media manager, fish technologist, teacher, community relations officer, social work case manager)? Give summary @ -[No] Was smoking cessation discussed for >3mins.? @ -[No] Was critical care preformed (if so, how long)? @ -[No] Were there social determinants of health that impacted care today? How? (Homelessness, low income, unemployed, alcoholism, drug addiction, transportation, low edu. Level, literacy, decrease access to med. care, correction, rehab)? @ -[No] Was there de-escalation of care discussed even if they declined (Discuss DNR or withdrawal of care, Hospice)? DNR status @ -[No] What co-morbidities impacted this encounter? (DM, HTN, Smoking, COPD, CAD, Cancer, CVA, ARF, Chemo, Hep., AIDS, mental health diagnosis, sleep apnea, morbid obesity)? @ -[None] Was patient admitted / discharged? Hospital course, mention meds given and route, prescriptions, significant lab abnormalities, going to OR and other pertinent info. @ -Patient is 32-year-old woman with the sensation that she can't take a deep breath. The workup here is unremarkable. We discussed appropriate further care and follow-up as well as return parameters. Undiagnosed new problem with uncertain prognosis? @ -[No] Drug Therapy requiring intensive monitoring for toxicity (Heparin, Nitro, Insulin, Cardizem)? @ -[No] Were any procedures done? @ -[No] Diagnosis/symptom? @ -[Acute dyspnea Acute, or Chronic, or Acute on Chronic? @ -[Acute Uncomplicated (without systemic symptoms) or Complicated (systemic symptoms)? @ -[Uncomplicated Side effects of treatment? @ -[No] Exacerbation, Progression, or Severe Exacerbation? @ -[No] Poses a threat to life or bodily function? How? (Chest pain, [place], [place], pneumonia, PE, COPD, DKA, ARF, appy, cholecystitis, CVA, Diverticulitis, Homicidal, Suicidal, threat to staff... and all critical care pts) @ -[No] (Kwan Caldwell) - Lab Data Lab Results 12/18/23 12/18/23 12/18/23 Range/Units 17:42 17:42 17:42 WBC 9.7 (3.8-10.6) k/uL RBC 5.34 (3.80-5.40) m/uL Hgb 13.5 (11.4-16.0) gm/dL Hct 41.8 (34.0-46.0) % MCV 78.2 L (80.0-100.0) fL MCH 25.3 (25.0-35.0) pg MCHC 32.3 (31.0-37.0) g/dL RDW 14.0 (11.5-15.5) % Plt Count 293 (150-450) k/uL MPV 7.5 Neutrophils % 71 % Lymphocytes % 20 % Monocytes % 5 % Eosinophils % 3 % Basophils % 0 % Neutrophils # 6.8 (1.3-7.7) k/uL Lymphocytes # 1.9 (1.0-4.8) k/uL Monocytes # 0.5 (0-1.0) k/uL Eosinophils # 0.3 (0-0.7) k/uL Basophils # 0.0 (0-0.2) k/uL PT 10.1 (10.0-12.5) sec INR 0.9 (<1.2) APTT 24.7 (22.0-30.0) sec D-Dimer 0.48 (<0.60) mg/L FEU Sodium 140 (137-145) mmol/L Potassium 3.6 (3.5-5.1) mmol/L Chloride 109 H (98-107) mmol/L Carbon Dioxide 21 L (22-30) mmol/L Anion Gap 10 mmol/L BUN 10 (7-17) mg/dL Creatinine 0.60 (0.52-1.04) mg/dL Est GFR (CKD-EPI)AfAm >90 (>60 ml/min/1.73 sqM) Est GFR (CKD-EPI)NonAf >90 (>60 ml/min/1.73 sqM) Glucose 127 H (74-99) mg/dL Plasma Lactic Acid Vidal (0.7-2.0) mmol/L Calcium 9.6 (8.4-10.2) mg/dL Total Bilirubin 0.4 (0.2-1.3) mg/dL AST 37 H (14-36) U/L ALT 28 (4-34) U/L Alkaline Phosphatase 65 (38-126) U/L Troponin I (0.000-0.034) ng/mL C-Reactive Protein 1.1 H (<1.0) mg/dL Total Protein 6.1 L (6.3-8.2) g/dL Albumin 3.6 (3.5-5.0) g/dL TSH 1.330 (0.465-4.680) mIU/L Influenza Type A (PCR) (Not Detectd) Influenza Type B (PCR) (Not Detectd) RSV (PCR) (Not Detectd) SARS-CoV-2 (PCR) (Not Detectd) 02/16/23 02/16/23 02/16/23 Range/Units 17:42 17:42 19:52 WBC (3.8-10.6) k/uL RBC (3.80-5.40) m/uL Hgb (11.4-16.0) gm/dL Hct (34.0-46.0) % MCV (80.0-100.0) fL MCH (25.0-35.0) pg MCHC (31.0-37.0) g/dL RDW (11.5-15.5) % Plt Count (150-450) k/uL MPV Neutrophils % % Lymphocytes % % Monocytes % % Eosinophils % % Basophils % % Neutrophils # (1.3-7.7) k/uL Lymphocytes # (1.0-4.8) k/uL Monocytes # (0-1.0) k/uL Eosinophils # (0-0.7) k/uL Basophils # (0-0.2) k/uL PT (10.0-12.5) sec INR (<1.2) APTT (22.0-30.0) sec D-Dimer (<0.60) mg/L FEU Sodium (137-145) mmol/L Potassium (3.5-5.1) mmol/L Chloride (98-107) mmol/L Carbon Dioxide (22-30) mmol/L Anion Gap mmol/L BUN (7-17) mg/dL Creatinine (0.52-1.04) mg/dL Est GFR (CKD-EPI)AfAm (>60 ml/min/1.73 sqM) Est GFR (CKD-EPI)NonAf (>60 ml/min/1.73 sqM) Glucose (74-99) mg/dL Plasma Lactic Acid Vidal 1.4 (0.7-2.0) mmol/L Calcium (8.4-10.2) mg/dL Total Bilirubin (0.2-1.3) mg/dL AST (14-36) U/L ALT (4-34) U/L Alkaline Phosphatase (38-126) U/L Troponin I <0.012 (0.000-0.034) ng/mL C-Reactive Protein (<1.0) mg/dL Total Protein (6.3-8.2) g/dL Albumin (3.5-5.0) g/dL TSH (0.465-4.680) mIU/L Influenza Type A (PCR) Not Detected (Not Detectd) Influenza Type B (PCR) Not Detected (Not Detectd) RSV (PCR) Not Detected (Not Detectd) SARS-CoV-2 (PCR) Not Detected (Not Detectd) Disposition <Gareth Luu - Last Filed: 02/16/23 16:50> Is patient prescribed a controlled substance at d/c from ED?: No <Kwan Caldwell - Last Filed: 02/27/23 09:35> Clinical Impression: Dyspnea Disposition: HOME SELF-CARE Condition: Good Instructions (If sedation given, give patient instructions): Dyspnea (ED) Prescriptions: rOPINIRole HCL [Requip] 0.25 mg PO HS #10 tablet Referrals: Megan Dubois DO [Primary Care Provider] - 1-2 days Martha Bradshaw MD [STAFF PHYSICIAN] - 1-2 days Arnaud Chapman MD [REFERRING] - 1-2 days
[2023-02-16 17:52] LABS: Basophils % (A) 0 %; Eosinophils # (A) 0.3 k/uL (0-0.7); Eosinophils % (A) 3 %; HCT 41.8 % (34.0-46.0); HGB 13.5 gm/dL (11.4-16.0); Lymphocytes # (A) 1.9 k/uL (1.0-4.8); Lymphocytes % (A) 20 %; MCH 25.3 pg (25.0-35.0); MCHC 32.3 g/dL (31.0-37.0); MCV 78.2 fL (80.0-100.0); Mean Platelet Volume 7.5; Monocytes # (A) 0.5 k/uL (0-1.0); Monocytes % (A) 5 %; Neutrophils # (A) 6.8 k/uL (1.3-7.7); Neutrophils % (A) 71 %; Platelet Count 293 k/uL (150-450); RBC 5.34 m/uL (3.80-5.40); WBC 9.7 k/uL (3.8-10.6)
[2023-02-16 18:06] LABS: ALT 28 U/L (4-34); AST 37 U/L (14-36); African American GFR (CKD) >90 (>60 ml/min/1.73 sqM); Albumin 3.6 g/dL (3.5-5.0); Alkaline Phosphatase 65 U/L (38-126); Anion Gap 10 mmol/L; Blood Urea Nitrogen 10 mg/dL (7-17); C Reactive Protein 1.1 mg/dL (<1.0); Calcium 9.6 mg/dL (8.4-10.2); Carbon Dioxide 21 mmol/L (22-30); Chloride 109 mmol/L (98-107); Glucose 127 mg/dL (74-99); Non-African American GFR(CKD) >90 (>60 ml/min/1.73 sqM); Potassium 3.6 mmol/L (3.5-5.1); Sodium 140 mmol/L (137-145); Total Bilirubin 0.4 mg/dL (0.2-1.3); Total Protein 6.1 g/dL (6.3-8.2)
[2023-02-16 18:12] LABS: INR 0.9 (<1.2); Partial Thromboplastin Time 24.7 sec (22.0-30.0); Prothrombin Time 10.1 sec (10.0-12.5)
--- NOTE | 2023-02-16 18:42 | XR ---
EXAMINATION TYPE: XR chest 2V DATE OF EXAM: 02/16/2023 COMPARISON: 09/15/2019 INDICATION: Difficulty breathing short of breath TECHNIQUE: Frontal and lateral views of the chest are obtained. FINDINGS: The heart size is normal. The pulmonary vasculature is normal. The lungs are clear. IMPRESSION: 1. No acute pulmonary process.
[2023-02-16] MEDS ORDERED: IBUPROFEN 600 MG TAB PO STA (20:10)
[2023-02-16 20:41] VITALS: BP 102/61; PULSE 68; RESP 18
== END 2023-02-16 21:08 | disposition home or self-care (01) ==
LOC: EC 16:02
DX: R06.00 Dyspnea, unspecified (principal); E07.9 Disorder of thyroid, unspecified; Z79.890 Hormone replacement therapy; Z20.822 Contact with and (suspected) exposure to COVID-19
CPT/HCPCS: 36415; 71046; 80053; 83605; 84443; 84484; 85025; 85379; 85610; 85730; 86140; 87636; 93005; 99285

== ENCOUNTER → 2023-07-01 | Outpatient (CLI) | payer BC | END | disposition home or self-care (01) | LOC: LABWHC1 09:29 | PROVIDERS: ATTEND Internal Medicine Endocrinology, Diabetes & Metabolism | DX: E11.65 Type 2 diabetes mellitus with hyperglycemia (principal); E78.2 Mixed hyperlipidemia; E03.9 Hypothyroidism, unspecified; E27.49 Other adrenocortical insufficiency; E87.8 Other disorders of electrolyte and fluid balance, not elsewhere classified; E24.8 Other Cushing's syndrome | CPT/HCPCS: 36415; 82024 ==

== ENCOUNTER → 2023-08-11 | Outpatient (CLI) | payer OTHER ==
[2023-08-11 15:19] LABS: Anion Gap 13.7 mmol/L (4.00-12.00); Carbon Dioxide 23.3 mmol/L (21.6-31.8); Potassium 4.1 mmol/L (3.5-5.5); T4, Free (Free Thyroxine) 1.34 ng/dL (0.80-1.80)
== END | disposition home or self-care (01) ==
LOC: LABWHC1 08:32
PROVIDERS: ATTEND Internal Medicine Endocrinology, Diabetes & Metabolism
DX: E55.9 Vitamin D deficiency, unspecified (principal); E03.9 Hypothyroidism, unspecified; E78.2 Mixed hyperlipidemia; E27.49 Other adrenocortical insufficiency; E87.8 Other disorders of electrolyte and fluid balance, not elsewhere classified
CPT/HCPCS: 36415; 80051; 82024; 82306; 82533; 84439; 84443

== ENCOUNTER → 2023-09-16 | Outpatient (CLI) | payer OTHER ==
[2023-09-16 16:12] LABS: T4, Free (Free Thyroxine) 1.26 ng/dL (0.80-1.80)
== END | disposition home or self-care (01) ==
LOC: LABWHC1 08:42
PROVIDERS: ATTEND Internal Medicine Endocrinology, Diabetes & Metabolism
DX: E23.6 Other disorders of pituitary gland (principal); E27.49 Other adrenocortical insufficiency; E87.8 Other disorders of electrolyte and fluid balance, not elsewhere classified
CPT/HCPCS: 36415; 82024; 82533; 84439; 84443

== ENCOUNTER → 2024-01-09 | Outpatient (CLI) | payer OTHER ==
[2024-01-09 13:25] LABS: Microalbumin Creatinine Ratio <8 mg/g Cr (0-30)
[2024-01-09 13:46] LABS: ALT 19 U/L (8-44); AST 17 U/L (13-35); Blood Urea Nitrogen 9.2 mg/dL (9.0-27.0); Carbon Dioxide 22.5 mmol/L (21.6-31.8); Chloride 105 mmol/L (96-109); Chol/HDL Ratio 5.04 Ratio; Glucose 84 mg/dL (70-110); LDL Cholesterol,Calculated 121.3 mg/dL (0.0-131.0); Potassium 4.4 mmol/L (3.5-5.5); Sodium 140 mmol/L (135-145); T4, Free (Free Thyroxine) 1.27 ng/dL (0.80-1.80)
== END | disposition home or self-care (01) ==
LOC: LABWHC1 08:05
PROVIDERS: ATTEND Internal Medicine Endocrinology, Diabetes & Metabolism
DX: E11.65 Type 2 diabetes mellitus with hyperglycemia (principal); E78.2 Mixed hyperlipidemia; E03.9 Hypothyroidism, unspecified; E27.49 Other adrenocortical insufficiency; E87.8 Other disorders of electrolyte and fluid balance, not elsewhere classified; E23.6 Other disorders of pituitary gland
CPT/HCPCS: 36415; 80051; 80061; 82024; 82043; 82306; 82533; 82565; 82570; 82947; 83036; 84305; 84439; 84443; 84450; 84460; 84520

== ENCOUNTER → 2024-02-22 | Outpatient (CLI) | payer OTHER ==
[2024-02-22 11:43] LABS: Anion Gap 11.3 mmol/L (4.00-12.00); Carbon Dioxide 21.7 mmol/L (21.6-31.8); Potassium 4.4 mmol/L (3.5-5.5); T4, Free (Free Thyroxine) 1.08 ng/dL (0.80-1.80)
== END | disposition home or self-care (01) ==
LOC: LABWHC1 08:24
PROVIDERS: ATTEND Internal Medicine Endocrinology, Diabetes & Metabolism
DX: E03.9 Hypothyroidism, unspecified (principal); E11.65 Type 2 diabetes mellitus with hyperglycemia; E23.6 Other disorders of pituitary gland; E24.8 Other Cushing's syndrome
CPT/HCPCS: 36415; 80051; 82024; 82530; 82533; 84439; 84443; 84481

== ENCOUNTER → 2024-03-19 | Outpatient (CLI) | payer OTHER ==
[2024-03-19 09:45] LABS: Amorphous Sediment,Urine Occasional /hpf; Appearance,Urine Cloudy (Clear); Bilirubin,Urine Negative (Negative); Blood,Urine Negative (Negative); Color,Urine Yellow; Glucose,Urine (UA) Negative (Negative); Ketones,Urine 2+ (Negative); Leukocyte Esterase,Urine Large (Negative); Mucus,Urine Occasional /hpf; Nitrite,Urine Negative (Negative); PH, Urine 5.5 (5.0-8.0); Protein,Urine Negative (Negative); RBC,Urine 2 /hpf (0-5); Squamous Epithelial Cell,Urine 8 /hpf (0-4); Urobilinogen,Urine <2.0 mg/dL (<2.0); WBC,Urine 9 /hpf (0-5)
[2024-03-19 13:23] LABS: Blood Urea Nitrogen 6.4 mg/dL (9.0-27.0); T4, Free (Free Thyroxine) 1.11 ng/dL (0.80-1.80)
[2024-03-19 15:02] LABS: Microalbumin Creatinine Ratio <10 mg/g Cr (0-30)
== END | disposition home or self-care (01) ==
LOC: LABWHC1 08:09
PROVIDERS: ATTEND Internal Medicine Endocrinology, Diabetes & Metabolism
DX: E11.65 Type 2 diabetes mellitus with hyperglycemia (principal)
CPT/HCPCS: 36415; 81001; 82024; 82043; 82306; 82533; 82565; 82570; 84439; 84443; 84481; 84520

== ENCOUNTER → 2024-05-23 | Outpatient (CLI) | payer OTHER ==
[2024-05-23 10:40] LABS: Anion Gap 10.4 mmol/L (4.00-12.00); Carbon Dioxide 19.6 mmol/L (21.6-31.8); T4, Free (Free Thyroxine) 1.03 ng/dL (0.80-1.80)
== END | disposition home or self-care (01) ==
LOC: LABWHC1 08:09
PROVIDERS: ATTEND Internal Medicine Endocrinology, Diabetes & Metabolism
DX: E78.2 Mixed hyperlipidemia (principal); E03.9 Hypothyroidism, unspecified; E27.49 Other adrenocortical insufficiency; E87.8 Other disorders of electrolyte and fluid balance, not elsewhere classified; E23.6 Other disorders of pituitary gland; E24.8 Other Cushing's syndrome
CPT/HCPCS: 36415; 80051; 82024; 82533; 84439; 84443; 84481

== ENCOUNTER → 2024-06-13 | Outpatient (CLI) | payer OTHER ==
[2024-06-13 11:07] LABS: Blood Urea Nitrogen 7.7 mg/dL (9.0-27.0); Carbon Dioxide 21.7 mmol/L (21.6-31.8); Chloride 106 mmol/L (96-109); Potassium 4.1 mmol/L (3.5-5.5); Sodium 138 mmol/L (135-145); T4, Free (Free Thyroxine) 1.19 ng/dL (0.80-1.80)
[2024-06-13 16:28] LABS: Appearance,Urine Cloudy (Clear); Bilirubin,Urine Negative (Negative); Blood,Urine Negative (Negative); Color,Urine Yellow (Yellow); Ketones,Urine 80 (Negative); Nitrite,Urine Negative (Negative); Specific Gravity,Urine 1.023 (1.001-1.030)
[2024-06-13 18:29] LABS: Bacteria,Urine 2+ (None Seen)
[2024-06-13 21:31] LABS: Microalbumin Creatinine Ratio <10 mg/g Cr (0-30)
== END | disposition home or self-care (01) ==
LOC: LABWHC1 08:16
PROVIDERS: ATTEND Internal Medicine Endocrinology, Diabetes & Metabolism
DX: E03.9 Hypothyroidism, unspecified (principal); E11.65 Type 2 diabetes mellitus with hyperglycemia; E78.2 Mixed hyperlipidemia; E27.49 Other adrenocortical insufficiency
CPT/HCPCS: 36415; 80051; 81001; 82024; 82043; 82533; 82565; 82570; 84439; 84443; 84481; 84520

== ENCOUNTER 2024-07-15 15:47 | Outpatient (CLI) | payer OTHER ==
[2024-07-15] MEDS ORDERED: LACTATED RINGERS 1,000 ML IV SCH (16:45)
--- NOTE | 2024-07-15 16:52 | US ---
EXAMINATION TYPE: US OB limited DATE OF EXAM: 07/15/2024 COMPARISON: NONE CLINICAL INDICATION: Female, 34 years old with history of Confirm position.; TECHNIQUE:: Transabdominal (TA) FINDINGS: GESTATIONAL AGE / DATING No growth performed on today?s study per ordering physician SURVEY PLACENTA: Not Ordered PREVIA: Not ordered ECHO: Not ordered cm CERVICAL LENGTH (transabdominal: norm > 3.0cm): Not ordered cm CERVICAL LENGTH (transvaginal: norm> 2.5cm): Not ordered cm (Supplemental transvaginal imaging performed to verify cervical length.) (Tech?if abnormal transabdominally?image transvaginally to substantiate abnormality.) PRESENTATION: Vertex LIE: Longitudinal HEART RATE: Not ordered bpm IMPRESSION: Vertex presentation with longitudinal lie. [facility], , 07/15/2024 4:50 PM
--- NOTE | 2024-07-15 17:44 | P.HPOB ---
History of Present Illness H&P Date: 07/15/24 This is a 34 yo at 35-4/7 weeks, estimated due date of 08/14, last menstrual period consistent with 13-week ultrasound. Patient has been receiving routine care with myself. Patient's care has been complicated by diagnosis of gestational diabetes which has been well-controlled with diet alone. Patient did have an ultrasound finding of an absent CSP/CC which was confirmed by maternal- medicine at [place] and also [facility]. [facility] did perform a MRI recently. In addition this patient has a history of Evelio's disease with surgery in 2022. Recommendations for steroids post delivery were discussed with her curing bin operator, Dr Small. She does have these instructions with her. Patient states rupture of membranes occurred around 1420 today clear in nature. Patient denies contractions. Patient has been having a sharp umbilical pain randomly through the day for the last week. Patient denies anything regular or menstrual-like in nature. Patient notes good movement. In OB triage rupture of membranes was confirmed. heart tones are noted to be category 1 and she is not salud. No vaginal bleeding is appreciated upon examination. Exam per RN is fingertip. On blood work this patient is a blood type of O+, rubella status immune, hepatitis B surface antigen negative, RPR is nonreactive, HIV is negative, hepatitis C antibody is nonreactive. OB history #1 #2 current Review of Systems Constitutional: Denies chills, Denies fatigue, Denies fever Ears, nose, mouth and throat: Denies headache Cardiovascular: Reports leg edema Respiratory: Denies dyspnea Gastrointestinal: Denies nausea, Denies vomiting Genitourinary: Reports Past Medical History Past Medical History: Thyroid Disorder Additional Past Medical History / Comment(s): PCOS History of Any Multi-Drug Resistant Organisms: C-DIFF Date of last positivie culture/infection: 2022 MDRO Source:: CDIFF Past Surgical History: Adenoidectomy, Orthopedic Surgery Additional Past Surgical History / Comment(s): Two knee surgeries, pituitary tumor removal Past Anesthesia/Blood Transfusion Reactions: No Reported Reaction Smoking Status: Never smoker - Past Family History Father History Unknown: Yes Family Medical History: AFIB Medications and Allergies Home Medications Medication Instructions Recorded Confirmed Type Levothyroxine Sodium [Tirosint] 25 mcg PO DAILY@0800 11/07/22 07/15/24 History Hydrocortisone [Cortef] 7 mg PO DAILY@1200 02/16/23 07/15/24 History Vit No.179/Iron/Folic 1 each PO DAILY 07/15/24 07/15/24 History [ Tablet] Allergies Allergy/AdvReac Type Severity Reaction Status Date / Time No Known Allergies Allergy Verified 07/15/24 15:57 Exam Osteopathic Statement: *. No significant issues noted on an osteopathic structural exam other than those noted in the History and Physical/Consult. Intake and Output 07/15/24 07/15/24 07/15/24 06:59 14:59 22:59 Other: Weight 78.925 kg Targeted physical exam was performed this date in general is a well-nourished well-developed female in no acute distress, patient is resting comfortably in bed. Breathing appears nonlabored, abdomen is noted to be gravid, heart tones are category 1 no contractions are appreciated. Cervical exam per RN prior to my arrival was fingertip thick and high ultrasound performed revealing vertex presentation. Grossly ruptured. Assessment and Plan (1) 35 to 36 weeks gestation of Current Visit: Yes Status: Acute Code(s): JFR5893 - SNOMED Code(s): 892329063 (2) premature rupture of membranes (PPROM) with unknown onset of labor Current Visit: Yes Status: Acute Code(s): O42.919 - PRETRM CARLOS ROM, UNSP TIME BETW RUPT AND ONST LABR, UNSP TRI SNOMED Code(s): 80150136419192792 (3) anomaly Current Visit: Yes Status: Acute Code(s): [id number] - SNOMED Code(s): 36593127 (4) GDM, class A1 Current Visit: Yes Status: Acute Code(s): O24.410 - GESTATIONAL DIABETES MELLITUS IN , DIET CONTROLLED SNOMED Code(s): 13419281 (5) AMA (advanced maternal age) multigravida 35+ Current Visit: Yes Status: Acute Code(s): O09.529 - SUPERVISION OF ELDERLY MULTIGRAVIDA, UNSPECIFIED TRIMESTER SNOMED Code(s): 425466201 (6) Evelio syndrome Current Visit: No Status: Acute Code(s): E24.9 - EVELIO'S SYNDROME, UNSPECIFIED SNOMED Code(s): 68177997 Plan: 34 yo presents with PPROM at 35-4/7 weeks. Patient has complicated history with a personal history of [place]'s diagnosis., Gestational diabetes with this well-controlled with diet alone, absence of CSP/CC confirmed by MRI. [facility]- medicine medicine [facility]
[2024-07-15 18:28] VITALS: BP 110/64; PULSE 88; RESP 16; TEMP 99
== END 2024-07-15 17:57 | disposition home or self-care (01) ==
LOC: FBPOP 15:47
PROVIDERS: ATTEND Obstetrics & Gynecology Obstetrics
DX: O42.913 Preterm premature rupture of membranes, unspecified as to length of time between rupture and onset of labor, third trimester (principal); O24.410 Gestational diabetes mellitus in pregnancy, diet controlled; O09.523 Supervision of elderly multigravida, third trimester; O99.283 Endocrine, nutritional and metabolic diseases complicating pregnancy, third trimester; E24.9 Cushing's syndrome, unspecified; Z3A.36 36 weeks gestation of pregnancy
CPT/HCPCS: 59025; 76815; 84112; 99213

== ENCOUNTER → 2024-08-10 | Outpatient (CLI) | payer OTHER ==
[2024-08-10 10:05] LABS: African American GFR (CKD) >90 (>60 ml/min/1.73 sqM); Anion Gap 10 mmol/L; Blood Urea Nitrogen 16 mg/dL (7-17); Carbon Dioxide 25 mmol/L (22-30); Chloride 107 mmol/L (98-107); Glucose 77 mg/dL (74-99); Non-African American GFR(CKD) >90 (>60 ml/min/1.73 sqM); Potassium 4.3 mmol/L (3.5-5.1); Sodium 142 mmol/L (137-145)
[2024-08-10 10:22] LABS: T4, Free (Free Thyroxine) 1.85 ng/dL (0.78-2.19)
[2024-08-10 19:11] LABS: Urine Creatinine 74.1 mg/dL (28.0-217.0)
== END | disposition home or self-care (01) ==
LOC: LABWHC1 08:46
PROVIDERS: ATTEND Internal Medicine Endocrinology, Diabetes & Metabolism
DX: E03.9 Hypothyroidism, unspecified (principal); E24.8 Other Cushing's syndrome; E27.49 Other adrenocortical insufficiency; E87.8 Other disorders of electrolyte and fluid balance, not elsewhere classified
CPT/HCPCS: 36415; 80051; 82024; 82043; 82306; 82533; 82565; 82570; 82947; 83036; 84439; 84443; 84520